=== PATIENT | male | born 1985 | race Caucasian/White ===

== ENCOUNTER 2020-08-12 13:06 | Emergency (ER) | payer MEDICARE, MEDICAID, SELFPAY ==
[2020-08-12 13:42] VITALS: BP 130/90; PULSE 82; RESP 16; TEMP 37; O2SAT 98; BMI 25.8
--- NOTE | 2020-08-12 14:25 | ED.BACK ---
HPI - Back Pain/Injury General Chief Complaint: Back Pain/Injury Stated Complaint: back pain Time Seen by Provider: 08/12/20 14:25 History of Present Illness HPI Narrative: Patient complains of low back pain mostly in the middle, but with some pain on both right and left sides with no radiation of pain no numbness no weakening, no paresthesias no tingling no urinary symptoms no changes to bowel or bladder, pain is worse with movement and he recalls no injury, pain is moderate Related Data Previous Rx's Medication Instructions Recorded diazepam [Valium] 5 mg PO TID PRN #14 tab 08/12/20 ibuprofen 600 mg PO Q6H PRN #20 tab 08/12/20 oxycodone 5 mg PO Q6H PRN #20 cap 08/12/20 Allergies Allergy/AdvReac Type Severity Reaction Status Date / Time efavirenz [From ATRIPLA] Allergy Unknown HIVES Unverified 05/12/20 15:21 emtricitabine [From ATRIPLA] Allergy Unknown HIVES Unverified 05/12/20 15:21 Penicillins Allergy Unknown HIVES Unverified 05/12/20 15:21 tenofovir [From ATRIPLA] Allergy Unknown HIVES Unverified 05/12/20 15:21 gadobutrol [From GADAVIST] AdvReac Mild STOMACH Unverified 05/12/20 15:21 UPSET penicillin Allergy Unknown SOB, RASH Uncoded 07/28/18 00:00 Review of Systems Review of Systems: No dizziness no weakness no fever no chills no numbness no weakness no paresthesias no radiation of pain no chest pain no abdominal pain no urinary symptoms no changes to bowel or bladder no incontinence no rash no extremity pain [facility] Past Medical History Attestation statement: The following information was validated with the patient. [facility] Narrative: Patient has had episodes of back pain before that were milder, no drugs or alcohol Source: nursing notes reviewed Medical History (Updated 08/12/20 @ 14:31 by CLAUDETTE Woo) No known health problems Social History Social History Alcohol intake: never Smoking Status: Never smoker Use of substances other than those prescribed or required for medical reasons: No Advance Directives: No Advance Directives Information Provided: Yes Physical Exam Vital Signs: Vital Signs: Last Vital Signs Temp 98.6 F 08/12/20 13:42 Pulse 82 08/12/20 13:42 Resp 16 08/12/20 13:42 BP 130/90 H 08/12/20 13:42 Pulse Ox 98 08/12/20 13:42 Body Mass Index 25.8 General appearance no distress, cooperative, a and O x3 Normocephalic atraumatic Neck is supple and nontender Respiratory no distress Abdomen is soft nontender The back had midline lower lumbar tenderness with mild bilateral paraspinal tenderness no focal bony tenderness, no CVA tenderness, skin is normal without redness warmth rash or wound, pain is worse with movements Extremities is full range of motion x4 Neuro gait is normal speech is normal interaction is normal, and motor is 5/5 x4 and sensation is intact and symmetrical Course Course Course Narrative: Patient with musculoskeletal back pain is treated with analgesics and discharged Discharge Plan Discharge Clinical Impression: Back pain Qualifiers: Back pain location: low back pain Chronicity: acute Back pain laterality: unspecified Sciatica presence: without sciatica Qualified Code(s): M54.5 - Low back pain Patient Disposition: Home, Self-Care Additional Instructions: Follow with primary doctor for back pain that is musculoskeletal, possibly herniated disc if needed Chiropractor and physical therapy are often helpful This pain usually will go away by itself over anywhere from days to weeks Return any time any worse condition or any concerns Prescriptions: New oxycodone 5 mg capsule 5 mg PO Q6H PRN (Reason: pain) Qty: 20 RF: 0 diazepam [Valium] 5 mg tablet 5 mg PO TID PRN (Reason: muscle spasm) Qty: 14 RF: 0 ibuprofen 600 mg tablet 600 mg PO Q6H PRN (Reason: pain) Qty: 20 RF: 0
[2020-08-12] MEDS: Acetaminophen 325 MG TABLET 650 MG PO (14:34)
[2020-08-12] MEDS: Ketorolac Tromethamine 30 MG/ML VIAL IM (14:35)
== END 2020-08-12 14:39 | disposition home or self-care (01) ==
PROVIDERS: Emergency Provider Emergency Medicine Emergency Medical Services
DX: M54.5 Low back pain (principal)
CPT/HCPCS: 96372; 99283; 99284; J1885

== ENCOUNTER 2021-04-02 11:53 | Emergency (ER) | payer MEDICARE, MEDICAID, SELFPAY ==
[2021-04-02 12:14] VITALS: BP 141/97; PULSE 117; RESP 18; TEMP 36.5; O2SAT 97; BMI 25.1
--- NOTE | 2021-04-02 13:54 | ED.SKABFB ---
HPI - Skin/Abscess/Foreign Bdy General Chief complaint: Skin/Abscess/Foreign Body Stated complaint: hives? Time Seen by Provider: 04/02/21 13:13 Source: patient Mode of arrival: ambulatory Limitations: no limitations History of Present Illness HPI narrative: 35-year-old male who denies any past medical or surgical history he denies currently taking any medication, no recent antibiotic use he presents today with complaint of states several months ago he started with itchy rash in the groin area where the skin slightly became macerated this rash has waxed and waned and now sometimes he will get intermittent rash diffusely on his extremities. States he has seen his primary care doctor and was prescribed mupirocin and oral antihistamine however rash keeps recurring. He denies any fever, chills, rash in the mouth, recent antibiotic use, travel, or sick contacts. MD complaint: rash Onset (ago): month(s) Tetanus up to date: yes Location: generalized Severity: mild Pain Consistency: intermittent Relieving factors: none Exacerbating factors: none Context: none Associated symptoms: denies other symptoms Treatments prior to arrival: none Related Data Previous Rx's Medication Instructions Recorded diazepam 5 mg tablet (Valium) 5 mg PO TID PRN #14 tab 08/12/20 ibuprofen 600 mg tablet 600 mg PO Q6H PRN #20 tab 08/12/20 oxycodone 5 mg capsule 5 mg PO Q6H PRN #20 cap 08/12/20 fluconazole 150 mg tablet 150 mg PO QWEEK 28 Days #4 tab 04/02/21 nystatin 100,000 unit/gram topical 1 appl TOPICAL DAILY 7 Days #15 g 04/02/21 powder prednisone 20 mg tablet 40 mg PO DAILY 7 Days #14 tab 04/02/21 Allergies Allergy/AdvReac Type Severity Reaction Status Date / Time efavirenz [From ATRIPLA] Allergy Unknown HIVES Unverified 05/12/20 15:21 emtricitabine [From ATRIPLA] Allergy Unknown HIVES Unverified 05/12/20 15:21 Penicillins Allergy Unknown HIVES Unverified 05/12/20 15:21 tenofovir [From ATRIPLA] Allergy Unknown HIVES Unverified 05/12/20 15:21 gadobutrol [From GADAVIST] AdvReac Mild STOMACH Unverified 05/12/20 15:21 UPSET penicillin Allergy Unknown SOB, RASH Uncoded 07/28/18 00:00 Review of Systems Review of Systems: Constitutional: No Weight loss, No Fever, No Chills, No Night Sweats, No Fatigue, No Malaise ENT/Mouth: No Hearing loss, No Ear Pain, No Nasal Congestion, No Sinus Pain, No Hoarseness, No sore throat, No Rhinorrhea, No Swallowing Difficulty Eyes: No Eye Pain, No Swelling, No Redness, No Foreign Body, No Discharge, No Vision Changes Cardiovascular: No Chest Pain, No SOB, No Dyspnea on Exertion, No Orthopnea, No Edema, No Palpitations Respiratory: No Cough, No Sputum, No Wheezing, No Smoke Exposure, No Dyspnea Gastrointestinal: No Nausea, No Vomiting, No Diarrhea, No Constipation, No abdominal Pain, No Hematochezia, No Melena Genitourinary: no irregular bleeding, No Dysuria, No Urinary Frequency, No Hematuria, No Urinary Incontinence, No Urgency, No Flank Pain, No Urinary Flow Changes, No Hesitancy Musculoskeletal: No joint pain, No Myalgias, No Joint Swelling Skin: No Skin Lesions, + rash Neuro: No Weakness, No Numbness, No Paresthesias, No Loss of Consciousness, No Dizziness, No Headache Psych: No Social Issues Heme/Lymph: No Bruising, No Bleeding,No Lymphadenopathy Endocrine: No Polyuria, No Polydipsia, No Temperature Intolerance [facility] Past Medical History Medical History (Updated 04/02/21 @ 13:27 by Juan Daniel Sanchez NP) No known health problems Social History Social History Alcohol intake: never Advance Directives: No Advance Directives Information Provided: Yes Physical Exam Vital Signs: Vital Signs: Last Vital Signs Temp 97.7 F 04/02/21 12:14 Pulse 117 H 04/02/21 12:14 Resp 18 04/02/21 12:14 BP 141/97 H 04/02/21 12:14 Pulse Ox 97 04/02/21 12:14 Body Mass Index 25.1 Const: General: cooperative and healthy appearing; No acute distress or intoxicated appearing Nutritional Appearance: average body habitus Orientation/consciousness: patient oriented x3 HENMT: Head: Yes normal to inspection Ears: hearing grossly normal bilaterally Eyes: General: appearance normal, both eyes and all related structures Visual Gregory: normal visual gregory by confrontation Neck: Neck: Yes normal visual inspection, No positive Brudzinski's sign, No positive Kernig's sign and No tender Thyroid: Thyroid normal Chest: Chest palpation & inspection: normal inspection of the chest Resp: Effort & Inspection: normal respiratory effort Auscultation: clear to auscultation bilaterally Cardio: Jugular venous distension: no JVD Rate: regular rate Rhythm: regular rhythm Heart sounds: S1 normal heart sound present and S2 normal heart sound present GI: Inspection: Yes normal to inspection Percussion: Yes normal to percussion Auscultation: normal bowel sounds : General: Yes no CVA tenderness Back/Spine/Pelvis: Back: no CVA tenderness Skin: Other: Bilateral groin areas slightly reddened and scaly rash with well-defined border extending from the superior to the mid groin area sparing the testicle/penile shaft. Bilateral arms and thighs with macular type rash lesions measuring small than 2 mm. There is no petechiae, fluid-filled sacs or discharge. General skin exam: elasticity normal Neuro: General: patient oriented x3 Extrem: General: Yes normal to inspection Course Course Course Narrative: Tinea with superimposed dermatitis will treat with fluconazole 1 tab Q week for 4 weeks, prednisone and nystatin for the groin area. Home care, return follow-up instructions provided. Feels comfortable plan. Stable for discharge. Discharge Plan Discharge Clinical Impression: Acute dermatitis Patient Disposition: Home, Self-Care Instructions: Acute Rash (ED) Additional Instructions: Take medications prescribed Avoid any new foods, soaps, detergents Return if any concerns or worsening symptoms as reviewed 2 Follow-up in 1 week with her primary doctor for recheck Thank you Prescriptions: New prednisone 20 mg tablet 40 mg PO DAILY 7 Days Qty: 14 RF: 0 fluconazole 150 mg tablet 150 mg PO QWEEK 28 Days Qty: 4 RF: 0 nystatin 100,000 unit/gram powder 1 appl topical DAILY 7 Days Qty: 15 RF: 0 No Action oxycodone 5 mg capsule 5 mg PO Q6H PRN (Reason: pain) Qty: 20 RF: 0 diazepam [Valium] 5 mg tablet 5 mg PO TID PRN (Reason: muscle spasm) Qty: 14 RF: 0 ibuprofen 600 mg tablet 600 mg PO Q6H PRN (Reason: pain) Qty: 20 RF: 0 Referrals: Jet Latif MD [Primary Care Provider] - 1 week Interventions: ED Discharge Assessment Last Done: 04/02/21 13:37 Discharge Date/Time: 04/02/21 13:38
== END 2021-04-02 13:38 | disposition home or self-care (01) ==
PROVIDERS: Emergency Provider Emergency Medicine Emergency Medical Services; PCP Internal Medicine
DX: L30.9 Dermatitis, unspecified (principal); R21 Rash and other nonspecific skin eruption
CPT/HCPCS: 99283

== ENCOUNTER 2022-03-25 22:21 | Emergency (ER) | payer MEDICARE, MEDICAID, SELFPAY ==
[2022-03-25 22:25] VITALS: BP 131/87; PULSE 84; RESP 18; TEMP 37.2; O2SAT 98; BMI 25.8
[2022-03-25 22:47] LABS: COVID-19 Test Positive (Negative)
[2022-03-25 22:48] LABS: Strep A Nucleic Acid Negative (Negative)
--- NOTE | 2022-03-25 23:46 | ED.GENADULT ---
HPI - General Adult General Chief complaint: General Medical Stated complaint: Sore throat Time Seen by Provider: 03/25/22 23:42 Source: patient Mode of arrival: ambulatory Limitations: no limitations History of Present Illness HPI narrative: Patient patient against COVID went on vacation to [place] came back 2 days ago complaining of sore throat body aches check for the COVID which was negative still not feeling good having body aches and sore throat also complaining of small folliculitis on the upper lip no fever no chills no shortness of breath Related Data Previous Rx's Medication Instructions Recorded diazepam 5 mg tablet (Valium) 5 mg PO TID PRN muscle spasm #14 08/12/20 tabs ibuprofen 600 mg tablet 600 mg PO Q6H PRN pain #20 tabs 08/12/20 oxycodone 5 mg capsule 5 mg PO Q6H PRN pain #20 caps 08/12/20 fluconazole 150 mg tablet 150 mg PO QWEEK 4 weeks #4 tabs 04/02/21 nystatin 100,000 unit/gram topical 1 appl topical DAILY to bilateral 04/02/21 powder groin 7 days #15 grams prednisone 20 mg tablet 40 mg PO DAILY 7 days #14 tabs 04/02/21 benzonatate 200 mg capsule 200 mg PO TID PRN cough #30 caps 03/25/22 doxycycline hyclate 100 mg tablet 100 mg PO BID #20 tabs 03/25/22 Allergies Allergy/AdvReac Type Severity Reaction Status Date / Time efavirenz [From ATRIPLA] Allergy Unknown HIVES Verified 03/25/22 22:25 emtricitabine [From ATRIPLA] Allergy Unknown HIVES Verified 03/25/22 22:25 Penicillins Allergy Unknown HIVES Verified 03/25/22 22:25 tenofovir [From ATRIPLA] Allergy Unknown HIVES Verified 03/25/22 22:25 gadobutrol [From GADAVIST] AdvReac Mild STOMACH Verified 03/25/22 22:25 UPSET penicillin Allergy Unknown SOB, RASH Uncoded 07/28/18 00:00 Review of Systems Review of Systems: Yes all other systems are reviewed and are negative PMFSH Past Medical History Medical History No known health problems Social History Social History Alcohol intake: never Advance Directives: No Advance Directives Information Provided: Yes Physical Exam ED Vital Signs: Vital Signs - 24 hr 03/25/22 22:25 Temperature 98.9 F Pulse Rate 84 Respiratory Rate 18 Blood Pressure 131/87 Pulse Oximetry 98 Oxygen Delivery Method Room Air BMI result Body Mass Index 25.8 Appearance: Alert. Oriented X3. No acute distress. ENT: Pharynx slight erythema Oral Mucosa moist Neck: Normal inspection. Neck supple. No lymph node CVS: Normal heart rate and rhythm. Pulses normal. Respiratory: No respiratory distress. Equal air entry bilateral, no wheezing/rales/rhonchi Abdomen: Soft and nontender. Bowel sounds are present, no mass palpable, no CVA tenderness Skin: Skin warm and dry. Normal skin color. Normal skin turgor. Extremities: No lower extremity edema. No calf tenderness Neuro: Oriented X 3. No motor deficit. Medical Decision Making MDM Narrative Medical decision making narrative: Patient with COVID symptoms discharge patient home on supportive treatment Lab Data Lab results reviewed: Yes I reviewed the patient's lab results. Labs: Lab Results 03/25/22 03/25/22 Range/Units 22:31 22:31 COVID-19 (CAMILA) Positive A (Negative) COVID-19 Clin Com See Note S. pyogenes GrpA FER Negative (Negative) Discharge Plan Discharge Clinical Impression: Folliculitis, COVID-19 Patient Disposition: Home, Self-Care Instructions: Folliculitis (ED), COVID-19 (Coronavirus Disease 2019) (ED) Additional Instructions: Social distancing as advised Report to ER if increased shortness of breath Doxycycline for folliculitis Cough drops as prescribed Prescriptions: New benzonatate 200 mg capsule 200 mg PO TID PRN (Reason: cough) Qty: 30 0RF doxycycline hyclate 100 mg tablet 100 mg PO BID Qty: 20 0RF No Action prednisone 20 mg tablet 40 mg PO DAILY 7 Days Qty: 14 0RF fluconazole 150 mg tablet 150 mg PO QWEEK 28 Days Qty: 4 0RF nystatin 100,000 unit/gram powder 1 appl topical DAILY 7 Days Qty: 15 0RF oxycodone 5 mg capsule 5 mg PO Q6H PRN (Reason: pain) Qty: 20 0RF Rx Instructions: Narcotic may cause drowsiness, no driving for 6 hours after taking diazepam [Valium] 5 mg tablet 5 mg PO TID PRN (Reason: muscle spasm) Qty: 14 0RF Rx Instructions: This medication may cause drowsiness, no driving for 8 hours after taking ibuprofen 600 mg tablet 600 mg PO Q6H PRN (Reason: pain) Qty: 20 0RF Interventions: ED Discharge Assessment Last Done: 03/25/22 23:54 Discharge Date/Time: 03/25/22 23:56
--- NOTE | 2022-03-25 23:54 | PC.NURSE ---
pt given nystatin from UC for oral thrush. pt continues to have lesions on tongue, and inside of cheeks. pt in no dc upon discharge
== END 2022-03-25 23:56 | disposition home or self-care (01) ==
LOC: HO.ED 23:52
PROVIDERS: Emergency Provider Internal Medicine; PCP Internal Medicine
DX: U07.1 COVID-19 (principal); J02.9 Acute pharyngitis, unspecified; L73.9 Follicular disorder, unspecified; M79.10 Myalgia, unspecified site; Z79.899 Other long term (current) drug therapy
CPT/HCPCS: 36415; 87635; 87651; 99284

== ENCOUNTER 2023-01-16 22:22 | Emergency (ER) | payer MEDICARE, MEDICAID, SELFPAY ==
--- NOTE | ~2023-01-16 | CT_ITS ---
EXAMINATION: CT ABDOMEN AND PELVIS WITH CONTRAST CLINICAL INFORMATION: Bilateral lower abdominal pain. COMPARISON: 02/17/2019 TECHNIQUE: Multidetector volumetric images were obtained from the superior aspect of the liver through the pubic symphysis following administration 85 mL of Omnipaque 350 intravenous contrast. Sagittal and coronal reformatted images were obtained on the technologist's workstation. Oral contrast: No This CT examination was performed using dose optimization techniques as appropriate, variously including the following: *Automated exposure control *Adjustment of mA and/or kV according to patient size (this includes techniques or standardized protocols for targeted exams where dose is matched to indication/reason for exam; i.e. extremities or head) *Use of iterative reconstruction technique DLP: 548 mGy-cm FINDINGS: LUNG BASES: The visualized lung bases are unremarkable. LIVER, GALLBLADDER, AND BILIARY TREE: Liver normal in size, contour and morphology. Diffuse hepatic steatosis suspected. No focal liver lesions. The gallbladder is unremarkable with no evidence of radiopaque gallstones, gallbladder wall thickening, or obvious pericholecystic inflammatory changes. PANCREAS: Unremarkable. SPLEEN: Unremarkable. ADRENAL GLANDS: Unremarkable. KIDNEYS AND URETERS: The kidneys are normal in size, shape, and attenuation. No hydronephrosis, hydroureter, or calculi seen. No perinephric stranding. BLADDER: Unremarkable. GASTROINTESTINAL TRACT: The small and large bowel are unremarkable. The appendix is unremarkable. ABDOMINAL WALL: No significant hernia is appreciated. LYMPH NODES: Normal. VASCULAR: Unremarkable. PELVIC VISCERA: Unremarkable. OSSEOUS STRUCTURES: Unremarkable. CT/CT abdomen pelvis w IV con IMPRESSION: * No acute findings within the abdomen or pelvis to explain the patient's symptomatology. * Hepatic steatosis suspected.
[2023-01-16 22:24] VITALS: BP 152/91; PULSE 78; RESP 18; TEMP 36.6; O2SAT 98; BMI 24.4
[2023-01-16 22:43] LABS: MANUAL DIFF FLAG NO
[2023-01-16 22:44] LABS: Basophils Absolute Auto 0.1 X10*3/uL (0.0-0.2); Basophils Percent Auto 0.7 % (0-2); Eosinophils Absolute Auto 0.5 X10*3/uL (0.0-0.4); Eosinophils Percent Auto 4.7 % (0-4); Hematocrit 45.7 % (42.0-52.0); Hemoglobin 15.1 g/dl (14.0-18.0); Imm Gran Abs Auto 0.05 X10*3/uL (0.00-0.03); Imm Gran Pct Auto 0.5 % (0.0-0.4); Lymphocytes Absolute Auto 2.6 X10*3/uL (1.2-4.9); Lymphocytes Percent Auto 26.6 % (20-40); Mean Corpuscular Hemoglobin 28.3 pg (27.0-33.0); Mean Corpuscular Volume 85.6 fL (80.0-98.0); Mean Platelet Volume 9.7 fL (9.4-12.4); Monocytes Absolute Auto 0.6 X10*3/uL (0.1-1.2); Monocytes Percent Auto 6.6 % (2-11); Neutrophils Absolute Auto 5.9 x10*3/uL (2.0-8.3); Neutrophils Percent Auto 60.9 % (45-73); Platelet Count 241 X10*3/uL (160-400); Red Blood Count 5.34 X10*6/uL (4.60-5.80); Red Cell Distribution Width 13.1 % (11.0-16.0); White Blood Count 9.8 X10*3/uL (4.8-10.8)
[2023-01-16 23:06] LABS: Alanine Aminotransferase 34 U/L (0-40); Albumin Level 4.2 g/dL (3.5-5.0); Alkaline Phosphatase 87 U/L (39-117); Anion Gap 14 (12-20); Aspartate Amino Transferase 27 U/L (5-37); Bilirubin Direct 0.1 mg/dL (0.0-0.5); Bilirubin Total 0.4 mg/dL (0.0-1.0); Blood Urea Nitrogen 15 mg/dL (9-16); Calcium 9.1 mg/dL (8.4-10.2); Carbon Dioxide 25 mmol/L (22-29); Chloride 106 mmol/L (96-108); Creatinine Clr Calc Pharmacy 97.1; Estimated Glomerular Filt Rate > 60; Glucose Random 81 mg/dL (60-115); Lipase 14 U/L (8-78); Potassium 4.3 mmol/L (3.3-5.1); Sodium 141 mmol/L (135-145); Total Protein 7.4 g/dL (6.5-8.0)
--- OUTSIDE RECORDS SUMMARY | 2023-01-16 23:41 | XMS_ITS | Continuity of Care Document ---
Author Name Unknown Organization [facility] Address [address] [place] [id number]- Care Team Providers Care Brimmer Blocker Name Role Phone Salomon OLMEDO, [facility] Primary Care Physician Encounter [facility] Date(s): 08/07/21 - 09/06/21 [facility] [address] [place] [id number]- Allergies, Adverse Reactions, Alerts Substance Reaction Severity Status Atripla hives Active Immunizations Given and Recorded Vaccine Date Status Refusal Reason SARS-CoV-2 (COVID-19) mRNA-1273 vaccine 12/05/20 R ecorded SARS-CoV-2 (COVID-19) mRNA-1273 vaccine 11/07/20 R ecorded Meningococcal Conjugate Vaccine 1 07/01/18 Given Meningococcal Conjugate Vaccine 2 01/01/17 Given influenza virus vaccine, inactivated 3 05/30/18 Gi lamar influenza virus vaccine, inactivated 4 07/10/16 Gi lamar influenza virus vaccine, inactivated 5 09/13/15 Gi lamar influenza virus vaccine, inactivated 07/15/12 Give n influenza virus vaccine, inactivated 6 06/06/10 Gi lamar Afluria (oldterm) 7 08/06/17 Given Boostrix (Tdap) (oldterm) 01/01/17 Given Prevnar (oldterm) 07/28/13 Given Fluarix (oldterm) 07/01/13 Given Hepatitis A Adult Vaccine 8 10/21/12 Given Hepatitis A Adult Vaccine 03/18/12 Given Hepatitis A Adult Vaccine 9 03/07/07 Given pneumococcal 23-valent vaccine 07/15/12 Given influ virus vac, H1N1, inactive(oldterm) 10 07/18/09 Given Influenza Inactive (IM) (oldterm) 11 06/14/08 Give n Influenza Inactive (IM) (oldterm) 07/14/07 Given Pneumovax 23 (oldterm) 12, 13 09/02/07 Given Pneumovax 23 (oldterm) 14 03/07/07 Given Hepatitis B Vaccine (old term) 15 07/31/07 Given Hepatitis B Vaccine (old term) 16 03/07/07 Given Tet/Diphth/Acel, Pertussis (oldterm) 17 02/05/07 G iven 1Admin Note: MENVEO #2 dose VIS GIVEN 2Admin Note: MENVEO 3Admin Note: recv'd at PCP office in [place] 4Admin Note: afluria 5Admin Note: Flucelvax 6Admin Note: VIS Given 7Result Comment: [08/06/2017] verbal consent obtained, allergies reviewed. Has had flu shot in past with no issues. [facility] flu vaccine sheet given. 8Admin Note: #2 9Admin Note: [facility] Records 10Admin Note: VIS given 11Admin Note: VIS given 12Result Comment: wrong patient 13Admin Note: Dr. Suarez Records 14Admin Note: [facility] Records 15Admin Note: [facility] Records #2 16Admin Note: [facility] Records #1 17Admin Note: [facility] Records Medications buPROPion 150 mg/24 hours (XL) oral tablet, extended release 1 tablet, By Mouth, Daily in AM, # 30 tablet, 1 Refills, 06/28/21 8:50:00 EDT, [facility]/pharmacy #1, 30, 1 tablet By Mouth Daily in AM, 180, cm, 03/15/21 13:32:00 EDT, Height Start Date: 06/28/21 Status: Ordered buPROPion 150 mg/24 hours (XL) oral tablet, extended release See Instructions, TAKE ONE TABLET BY MOUTH EVERY MORNING WITH 300 MG TABLET FOR A TOTAL OF 450 MG PER DAY IN THE MORNING, # 30 tablet, 5 Refills, [facility], 30, TAKE ONE TABLET BY MOUTH EVERY MORNING WITH 300 MG TABLET FOR A TOTAL OF... Start Date: 08/22/21 Status: Ordered buPROPion 300 mg/24 hours (XL) oral tablet, extended release 1 tablet, By Mouth, Daily, # 30 tablet, 1 Refills, 06/28/21 8:50:00 [id number], cm, 03/15/21 13:32:00 EDT, Height Start Date: 06/28/21 Status: Ordered buPROPion 300 mg/24 hours (XL) oral tablet, extended release See Instructions, TAKE ONE TABLET BY MOUTH ONCE DAILY, # 30 tablet, 5 Refills, [facility], 180, cm, 07/11/21 14:47:00 EST, Height Start Date: 08/22/21 Status: Ordered busPIRone 5 mg oral tablet 5 mg, 1, tablet, By Mouth, 2 times a day, # 60 tablet, Refills 2, Tot. Refills 2, Maintenance, 08/22/21 12:35:00 EST, [id number], cm, 07/11/21 14:47:00 EST, Height Start Date: 08/22/21 Status: Ordered clindamycin 1% topical gel 1 application, Topically, 2 times a day, # 60 Gm, 0 Refills, Maintenance, 03/21/21 14:11:00 EDT, Gel, [facility]/pharmacy #[id number], Partial fill upon patient request if the prescription is for a schedule II opioid drug., 1 application Topically 2 times a day, 1... Start Date: 03/21/21 Status: Ordered clotrimazole 1% topical cream 1 application, Topically, 2 times a day, # 113 Gm, 1 Refills, Maintenance, 03/15/21 13:54:00 EDT, Cream, [facility]/pharmacy #[id number], Partial fill upon patient request if the prescription is for a schedule IIopioid drug., 1 application Topically 2 times a day... Start Date: 03/15/21 Status: Ordered docusate sodium 100 mg oral capsule 1 capsule = 100 mg, By Mouth, 2 times a day, Hold for loose stools Drink Plenty of Water, # 60 capsule, 3 Refills, Maintenance, 03/03/14 18:39:45, Capsule, 1 capsule By Mouth 2 times a day,x30 days,Instr:Hold for loose stools ; Drink Plenty of Water Start Date: 03/03/14 Stop Date: 07/01/14 Status: Ordered Genvoya oral tablet 1 tablet, By Mouth, Daily, with food, # 30 tablet, 5 Refills, Maintenance, 03/27/21 10:44:00 EDT, Tablet, [facility], 1 tablet By Mouth Daily,x30 days,Instr:with food, 180, cm, 03/15/21 13:32:00 EDT, Height Start Date: 03/27/21 Stop Date: 09/23/21 Status: Ordered Nasacort Allergy 24HR 55 mcg/inh nasal spray See Instructions, 2 sprays Daily, # 1 each, 1 Refills, Maintenance, 09/25/16 12:12:25 Start Date: 09/25/16 Status: Ordered nystatin topical 761571 u/gm powder 1 application, Topically, 3 times a day, # 60 Gm, 1 Refills, Maintenance, 06/06/21 14:33:00 EDT, Powder, [facility]/pharmacy #[id number], Partial fill upon patient request if the prescription is for a schedule IIopioid drug., 1 application Topically 3 times a day... Start Date: 06/06/21 Status: Ordered prazosin 1 mg oral capsule 3, capsule, By Mouth, Daily at bedtime, # 90 capsule, Refills 11, Tot. Refills 11, 08/09/21 11:17:00 EST, Route to Pharmacy Electronically, [facility]/pharmacy #[id number], 180, cm, 07/11/21 14:47:00 EST, Height Start Date: 08/09/21 Status: Ordered Vistaril pamoate 25 mg oral capsule 1 capsule = 25 mg, By Mouth, Daily at bedtime, PRN as needed for anxiety, # 30 capsule, 2 Refills, Maintenance, 08/22/21 12:36:00 EST, [facility]/pharmacy #[id number], 180, cm, 07/11/21 14:47:00 EST, Height Start Date: 08/22/21 Status: Ordered zolpidem 10 mg oral tablet 1 tablet, By Mouth, Daily at bedtime, PRN NEEDED FOR SLEEP, # 30 tablet, 1 Refills, Maintenance,06/28/21 8:55:00 EDT, [id number], 180, cm, 03/15/21 13:32:00 EDT, Height Start Date: 06/28/21 Status: Ordered zolpidem 10 mg oral tablet See Instructions, TAKE ONE TABLET BY MOUTH EVERY NIGHT AT BEDTIME NEEDED FOR SLEEP, # 30 tablet,2 Refills, Maintenance, 08/22/21 12:10:00 EST, [facility], 180, cm, 07/11/21 14:47:00 EST, Height Start Date: 08/22/21 Status: Ordered ZyrTEC 10 mg oral tablet 1 tablet = 10 mg, By Mouth, Daily, # 30 tablet, 0 Refills, Maintenance, 11/11/18 12:39:40 EDT, Tablet Start Date: 11/11/18 Status: Ordered Problem List Condition Effective Dates Status Health Status Inform ant 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 Social History Social History Type Response Smoking Status Former smoker; Tob[employer] user in household: No entered on: 09/29/13 Sex
--- OUTSIDE RECORDS SUMMARY | 2023-01-16 23:41 | XMS_ITS | Continuity of Care Document ---
Author Name Unknown Organization [facility] Address [address] [place] [address]- Care Team Providers Care Hydrogeologist Name Role Phone Salomon OLMEDO, Jet Primary Care Physician [facility]): 10/24/21 - 11/23/21 [facility] [address] [place] [id number]- Allergies, Adverse Reactions, Alerts Substance Reaction Severity Status Atripla hives Active Immunizations Given and Recorded Vaccine Date Status Refusal Reason SARS-CoV-2 (COVID-19) mRNA-1273 vaccine 10/04/21 R ecorded SARS-CoV-2 (COVID-19) mRNA-1273 vaccine 12/05/20 R ecorded [...] 3Admin Note: recv'd at PCP office in [place] 4Admin Note: afluria 5Admin Note: Flucelvax 6Admin Note: VIS Given 7Result Comment: [08/06/2017] verbal consent obtained, allergies reviewed. Has had flu shot in past with no issues. [facility] flu vaccine sheet given. 8Admin Note: #2 9Admin Note: [facility] Records 10Admin Note: VIS given 11Admin Note: VIS given 12Result Comment: wrong patient 13Admin Note: Dr. Suarez Records 14Admin Note: [facility] Records 15Admin Note: [facility] Records #2 16Admin Note: [facility] Records #1 17Admin Note: [facility] Records Medications buPROPion 150 mg/24 hours (XL) oral tablet, extended release See Instructions, TAKE 1 TABLET BY MOUTH EVERY MORNING, # 30 tablet, 1 Refills, 10/26/21 17:11:00 EST, [facility], 30, TAKE 1 TABLET BY MOUTH EVERY MORNING, 180, cm, 07/11/21 14:47:00 EST, Height Start Date: 10/26/21 Status: Ordered buPROPion 300 mg/24 hours (XL) oral tablet, extended release See Instructions, TAKE 1 TABLET BY MOUTH EVERY DAY, # 30 tablet, 1 Refills, 10/26/21 17:11:00 EST, [facility], 180, cm, 07/11/21 14:47:00 EST, Height Start Date: 10/26/21 Status: Ordered busPIRone 5 mg oral tablet 5 mg, 1, tablet, By Mouth, 3 times a day, for 30 days, # 90 tablet, Refills 1, Tot. Refills 1, Physician Stop 12/25/21 17:13:00 EDT, 10/26/21 17:13:00 EST, Route to Pharmacy Electronically, [facility], 180, cm, 07/11/21 14:47:00 EST,... Start Date: 10/26/21 Stop Date: 12/25/21 Status: Ordered clindamycin 1% topical gel 1 application, Topically, 2 times a day, # 60 Gm, 0 Refills, Maintenance, 03/21/21 14:11:00 EDT, Gel, [facility]/pharmacy #[id number], Partial fill upon patient request if the prescription is for a schedule II opioid drug., 1 application Topically 2 times a day, 1... Start Date: 03/21/21 Status: Ordered clotrimazole 1% topical cream 1 application, Topically, 2 times a day, # 113 Gm, 1 Refills, Maintenance, 03/15/21 13:54:00 EDT, Cream, [facility]/pharmacy #[id number], Partial fill upon patient request if [...] food, # 30 tablet, 5 Refills, Maintenance, 11/20/21 10:48:00 EDT, Tablet, [facility], 1 tablet By Mouth Daily,x30 days,Instr:with food, 180, cm, 07/11/21 14:47:00 EST, Height Start Date: 11/20/21 Stop Date: 05/19/22 Status: Ordered Nasacort Allergy 24HR 55 mcg/inh nasal spray See Instructions, 2 sprays Daily, # 1 each, 1 Refills, Maintenance, 09/25/16 12:12:25 Start Date: 09/25/16 Status: Ordered nystatin topical 794697 u/gm powder 1 application, Topically, 3 times a day, # 60 Gm, 1 Refills, Maintenance, 06/06/21 14:33:00 EDT, Powder, [facility]/pharmacy #[id number], Partial fill upon patient request if the prescription is for a schedule IIopioid drug., 1 application Topically 3 times a day... Start Date: 06/06/21 Status: Ordered prazosin 1 mg oral capsule 4 mg, 4, capsule, By Mouth, Daily at bedtime, for 30 days, please cancel any other prazosin rx on file, # 120 capsule, Refills 1, Tot. Refills 1, Physician Stop 12/25/21 17:12:00 EDT, 10/26/21 17:12:00 EST, Route to Pharmacy Electronically, [facility]... Start Date: 10/26/21 Stop Date: 12/25/21 Status: Ordered Vistaril pamoate 25 mg oral capsule See Instructions, PRN as needed for anxiety, take 1-2 caps po bid prn for anxiety or insomnia. Max 4 caps/day, # 120 capsule, 1 Refills, Maintenance, 10/26/21 17:11:00 EST, [facility], 180, cm, 07/11/21 14:47:00 EST, Height Start Date: 10/26/21 Status: Ordered zolpidem 10 mg oral tablet See Instructions, TAKE ONE TABLET BY MOUTH EVERY NIGHT AT BEDTIME NEEDED FOR SLEEP, # 30 tablet,1 Refills, Maintenance, 10/26/21 17:15:00 EST, [facility], 180, cm, 07/11/21 14:47:00 EST, Height Start Date: 10/26/21 Status: Ordered ZyrTEC 10 mg oral tablet [...]
--- OUTSIDE RECORDS SUMMARY | 2023-01-16 23:41 | XMS_ITS | Continuity of Care Document ---
Author Name Unknown Organization [facility] Address [address] [place] [address]- Care Team Providers Care Metaphysicist Name Role Phone Salomon OLMEDO, Jet Primary Care Physician [facility]): 03/23/21 - 04/22/21 [facility] [address] [place], [place] [address] Allergies, Adverse Reactions, Alerts Substance Reaction Severity [...] 3Admin Note: recv'd at PCP office in [place] 4Admin Note: afluria 5Admin Note: Flucelvax 6Admin Note: VIS Given 7Result Comment: [08/06/2017] verbal consent obtained, allergies reviewed. Has had flu shot in past with no issues. [facility] flu vaccine sheet given. 8Admin Note: #2 9Admin Note: [facility] Records 10Admin Note: VIS given 11Admin Note: VIS given 12Result Comment: wrong patient 13Admin Note: Dr. Suarez Records 14Admin Note: [facility] Records 15Admin Note: [facility] Records #2 16Admin Note: [facility] Records #1 17Admin Note: [facility] Records Medications buPROPion 150 mg/24 hours (XL) oral tablet, extended release 1 tablet, By Mouth, Daily in AM, TAKE WITH 300 MG TAB FOR TOTAL OF 450 MG/DAY IN AM, # 30 tablet, 1Refills, Maintenance, 03/03/21 11:22:00 EDT, [facility], 30, 1 tablet By Mouth Daily in AM,Instr:TAKE WITH 300 MG TAB FOR TOTAL OF 450... Start Date: 03/03/21 Status: Ordered busPIRone 5 mg oral tablet See Instructions, Take 1 tab qhs po x 5 days then take 1 tab bid, # 60 tablet, Refills 2, Tot. Refills 2, Maintenance, 02/02/21 11:48:00 EDT, Instructions Replace Required Details, Route to Pharmacy Electronically, [facility], Partial... Start Date: 02/02/21 Status: Ordered clindamycin 1% topical gel 1 application, Topically, 2 times a day, # 60 Gm, 0 Refills, Maintenance, 03/21/21 14:11:00 EDT, [id number] Partial fill upon patient request if the prescription is for a schedule II opioid drug., 1 application Topically 2 times a day, 1... Start Date: 03/21/21 Status: Ordered clotrimazole 1% topical cream 1 application, Topically, 2 times a day, # 113 Gm, 1 Refills, Maintenance, 03/15/21 13:54:00 EDT, Cream, [facility]/pharmacy #[id number], Partial fill upon patient request if [...] 5 Refills, Maintenance, 03/27/21 10:44:00 EDT, Tablet, [facility], 1 tablet By Mouth Daily,x30 days,Instr:with food, 180, cm, 03/15/21 13:32:00 EDT, Height Start Date: 03/27/21 Stop Date: 09/23/21 Status: Ordered Nasacort Allergy 24HR 55 mcg/inh nasal spray See Instructions, 2 sprays Daily, # 1 each, 1 Refills, Maintenance, 09/25/16 12:12:25 Start Date: 09/25/16 Status: Ordered nystatin topical 300485 u/gm powder 1 application, Topically, 3 times a day, # 60 Gm, 1 Refills, Maintenance, 04/03/21 18:31:00 EDT, Powder, [facility], Partial fill upon patient request if the prescription is for a schedule II opioid drug., 1 application Topically 3 ti... Start Date: 04/03/21 Status: Ordered oxyCODONE 5 mg oral tablet 5 mg, 1, tablet, By Mouth, Every 6 hours, PRN, # 28 tablet, Refills 0, Tot. Refills 0, Maintenance,for pain, 11/05/18 10:46:17 EDT, Print Requisition Start Date: 11/05/18 Status: Ordered prazosin 1 mg oral capsule See Instructions, TAKE THREE CAPSULES BY MOUTH AT BEDTIME, # 90 capsule, Refills 1, Maintenance, Instructions Replace Required Details, Route to Pharmacy Electronically, [facility], 180, cm, 01/10/21 14:13:00 EDT, Height Start Date: 03/03/21 Status: Ordered prazosin 1 mg oral capsule 3, capsule, By Mouth, Daily at bedtime, # 90 capsule, Refills 1, Tot. Refills 0, Maintenance, 01/04/21 15:13:00 EDT, Route to Pharmacy Electronically, [facility], 180, cm, 03/30/20 15:08:00 EDT, Height Start Date: 01/04/21 Status: Ordered Valium 5 mg oral tablet 5 mg, 1, tablet, By Mouth, 3 times a day, PRN, for anal spasms, # 40 tablet, Refills 0, Tot. Refills 0, Maintenance, Spasm, 10/27/18 12:55:38 EST, Print Requisition Start Date: 10/27/18 Status: Ordered Vistaril pamoate 25 mg oral capsule 1 capsule = 25 mg, By Mouth, Daily at bedtime, PRN Insomnia, # 30 capsule, 0 Refills, Maintenance, 06/24/20 17:18:00 EDT, [facility], 180, cm, 03/30/20 15:08:00 EDT, Height, 81.8, kg, 10/28/18 10:39:00 EST, Dry Weight Start Date: 06/24/20 Status: Ordered zolpidem 10 mg oral tablet 1 tablet, By Mouth, Daily at bedtime, PRN NEEDED FOR SLEEP, # 30 tablet, 1 Refills, Maintenance,03/03/21 11:22:00 EDT, [facility], 180, cm, 01/10/21 14:13:00 EDT, Height Start Date: 03/03/21 Status: Ordered ZyrTEC 10 mg oral tablet [...]
--- OUTSIDE RECORDS SUMMARY | 2023-01-16 23:41 | XMS_ITS | Continuity of Care Document ---
Author Name Unknown Organization [facility] Address [address] [place] [address]- Care Team Providers Care Information Technology Architect Name Role Phone Salomon OLMEDO, Richa Primary Care Physician [phone] [facility]counter [facility] Date[facility]s): 05/11/22 - 06/10/22 [facility] [address]- [place] Allergies, Adverse Reactions, Alerts Substance Reaction Severity [...] 3Admin Note: recv'd at PCP office in [place] 4Admin Note: afluria 5Admin Note: Flucelvax 6Admin Note: VIS Given 7Result Comment: [08/06/2017] verbal consent obtained, allergies reviewed. Has had flu shot in past with no issues. [facility] flu vaccine sheet given. 8Admin Note: #2 9Admin Note: [facility] Records 10Admin Note: VIS given 11Admin Note: VIS given 12Result Comment: wrong patient 13Admin Note: Dr. Suarez Records 14Admin Note: [facility] Records 15Admin Note: [facility] Records #2 16Admin Note: [facility] Records #1 17Admin Note: [facility] Records Medications buPROPion 150 mg/24 hours (XL) oral tablet, extended release See Instructions, TAKE 1 TABLET BY MOUTH EVERY MORNING, # 30 tablet, 2 Refills, 03/08/22 9:52:00 EDT, [facility], 30, TAKE 1 TABLET BY MOUTH EVERY MORNING, 180, cm, 01/23/22 14:19:00EDT, Height Start Date: 03/08/22 Status: Ordered buPROPion 300 mg/24 hours (XL) oral tablet, extended release See Instructions, TAKE 1 TABLET BY MOUTH EVERY DAY, # 30 tablet, 2 Refills, 03/08/22 9:52:00 EDT, [facility], 180, cm, 01/23/22 14:19:00 EDT, Height Start Date: 03/08/22 Status: Ordered busPIRone 5 mg oral tablet See Instructions, Take 1 tab qam po and 2 tabs qhs, # 180 tablet, Refills 2, Tot. Refills 2, 03/08/22 9:51:00 EDT, Instructions Replace Required Details, Route to Pharmacy Electronically, [facility], 180, cm, 01/23/22 14:19:00 EDT, He... Start Date: 03/08/22 Status: Ordered clindamycin 1% topical gel 1 application, Topically, 2 times a day, # 60 Gm, 0 Refills, Maintenance, 03/21/21 14:11:00 EDT, Gel, [facility]/pharmacy #[id number], Partial fill upon patient request if the prescription is for a schedule II opioid drug., 1 application Topically 2 times a day, 1... Start Date: 03/21/21 Status: Ordered clotrimazole 1% topical cream 1 application, Topically, 2 times a day, # 113 Gm, 1 Refills, Maintenance, 03/15/21 13:54:00 EDT, Cream, [facility]/pharmacy #[id number], Partial fill upon patient request [...] food, # 30 tablet, 5 Refills, Maintenance, 05/09/22 11:02:00 EDT, Tablet, [facility], 1 tablet By Mouth Daily,x30 days,Instr:with food, 180, cm, 01/23/22 14:19:00 EDT, Height Start Date: 05/09/22 Stop Date: 11/05/22 Status: Ordered Nasacort Allergy 24HR 55 mcg/inh nasal spray See Instructions, 2 sprays Daily, # 1 each, 1 Refills, Maintenance, 09/25/16 12:12:25 Start Date: 09/25/16 Status: Ordered nystatin topical 566422 u/gm powder 1 application, Topically, 3 times a day, # 60 Gm, 1 Refills, Maintenance, 06/06/21 14:33:00 EDT, Powder, [facility]/pharmacy #[id number], Partial fill upon patient request if the prescription is for a schedule IIopioid drug., 1 application Topically 3 times a day... Start Date: 06/06/21 Status: Ordered prazosin 1 mg oral capsule See Instructions, TAKE 4 CAPSULES BY MOUTH ONCE DAILY AT BEDTIME, # 120 capsule, Refills 2, Tot. Refills 2, Instructions Replace Required Details, [facility], cm, 01/23/22 14:19:00 EDT, Height Start Date: 03/08/22 Status: Ordered Vistaril pamoate 25 mg oral capsule See Instructions, PRN as needed for anxiety, take 1-2 caps po bid prn for anxiety or insomnia. Max 4 caps/day, # 120 capsule, 1 Refills, Maintenance, 12/08/21 6:01:00 EDT, [facility], 180, cm, 07/11/21 14:47:00 EST, Height Start Date: 12/08/21 Status: Ordered zolpidem 10 mg oral tablet See Instructions, TAKE ONE TABLET BY MOUTH EVERY NIGHT AT BEDTIME NEEDED FOR SLEEP, # 30 tablet,2 Refills, Maintenance, 03/08/22 9:53:00 EDT, [facility], 180, cm, 01/23/22 14:19:00 EDT, Height Start Date: 03/08/22 Status: Ordered zolpidem 10 mg oral tablet See Instructions, TAKE ONE TABLET BY MOUTH EVERY NIGHT AT BEDTIME NEEDED FOR SLEEP, # 30 tablet,1 Refills, Maintenance, 10/26/21 17:15:00 EST, [facility], 180, cm, 07/11/21 14:47:00 EST, Height Start Date: 10/26/21 Status: Ordered zolpidem 10 mg oral tablet See Instructions, TAKE ONE TABLET BY MOUTH EVERY NIGHT AT BEDTIME NEEDED FOR SLEEP, # 30 tablet,1 Refills, Maintenance, 12/08/21 6:04:00 EDT, [facility], 180, cm, 07/11/21 14:47:00 EST, Height Start Date: 12/08/21 Status: Ordered ZyrTEC 10 mg oral tablet 1 tablet = 10 mg, By Mouth, Daily, # 30 tablet, 11 Refills, Maintenance, 01/23/22 14:27:00 EDT, Tablet, [facility]/pharmacy #[id number], 180, cm, 01/23/22 14:19:00 EDT, Height Start Date: 01/23/22 Status: Ordered Problem List Condition Confirmation Course Effective Dates Status H ealth Status Informant 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 Social History Social History Type Response Smoking Status Former smoker; Tobac co user in household: No entered on: 09/29/13 Sex Patient Care team information Personnel Name: Jet Latif MD Address: Address: [address] [place] [address] [facility] [address]
--- OUTSIDE RECORDS SUMMARY | 2023-01-16 23:41 | XMS_ITS | Continuity of Care Document ---
Author Name Unknown Organization [facility] Address [address] [place] [address]- Care Team Providers Care Communications Associate Name Role Phone Salomon OLMEDO, Richa Primary Care Physician [facility] 07[facility] - 08/10/21 [facility] [address] [place] [id number] Attending Physician: Admtr, [id number] Allergies, Adverse Reactions, Alerts Substance Reaction Severity [...] 3Admin Note: recv'd at PCP office in [place] 4Admin Note: afluria 5Admin Note: Flucelvax 6Admin Note: VIS Given 7Result Comment: [08/06/2017] verbal consent obtained, allergies reviewed. Has had flu shot in past with no issues. [facility] flu vaccine sheet given. 8Admin Note: #2 9Admin Note: [facility] Records 10Admin Note: VIS given 11Admin Note: VIS given 12Result Comment: wrong patient 13Admin Note: Dr. Suarez Records 14Admin Note: [facility] Records 15Admin Note: [facility] Records #2 16Admin Note: [facility] Records #1 17Admin Note: [facility] Records Medications buPROPion 150 mg/24 hours (XL) oral tablet, extended release 1 tablet, By Mouth, Daily in AM, # 30 tablet, 1 Refills, 06/28/21 8:50:00 EDT, [facility]/pharmacy #[id number], 30, 1 tablet By Mouth Daily in AM, 180, cm, 03/15/21 13:32:00 EDT, Height Start Date: 06/28/21 Status: Ordered buPROPion 300 mg/24 hours (XL) oral tablet, extended release 1 tablet, By Mouth, Daily, # 30 tablet, 1 Refills, 06/28/21 8:50:00 EDT, [facility]/pharmacy #[id number], 180, cm, 03/15/21 13:32:00 EDT, Height Start Date: 06/28/21 Status: Ordered busPIRone 5 mg oral tablet See Instructions, TAKE ONE TABLET BY MOUTH AT BEDTIME FOR 5 DAYS THEN TAKE ONE TABLET TWO TIMES A DAY, # 60 tablet, Refills 1, Tot. Refills 1, Maintenance, 06/28/21 8:50:00 EDT, Instructions Replace Required Details, Route to Pharmacy Electronically,... Start Date: 06/28/21 Status: Ordered clindamycin 1% topical gel 1 application, Topically, 2 times a day, # 60 Gm, 0 Refills, Maintenance, 03/21/21 14:11:00 EDT, Gel, [facility]/pharmacy #[id number], Partial fill upon patient request if the prescription is for a schedule II opioid drug., 1 application Topically 2 times a day, 1... Start Date: 03/21/21 Status: Ordered clotrimazole 1% topical cream 1 application, Topically, 2 times a day, # 113 Gm, 1 Refills, Maintenance, 03/15/21 13:54:00 EDT, Cream, [facility]/pharmacy #[id number], Partial fill upon patient request if [...] 5 Refills, Maintenance, 03/27/21 10:44:00 EDT, Tablet, [facility], 1 tablet By Mouth Daily,x30 days,Instr:with food, 180, cm, 03/15/21 13:32:00 EDT, Height Start Date: 03/27/21 Stop Date: 09/23/21 Status: Ordered Nasacort Allergy 24HR 55 mcg/inh nasal spray See Instructions, 2 sprays Daily, # 1 each, 1 Refills, Maintenance, 09/25/16 12:12:25 Start Date: 09/25/16 Status: Ordered nystatin topical 479139 u/gm powder 1 application, Topically, 3 times a day, # 60 Gm, 1 Refills, Maintenance, 06/06/21 14:33:00 EDT, [id number] Partial fill upon patient request if the prescription is for a schedule IIopioid drug., 1 application Topically 3 times a day... Start Date: 06/06/21 Status: Ordered prazosin 1 mg oral capsule 3, capsule, By Mouth, Daily at bedtime, # 90 capsule, Refills 11, Tot. Refills 11, 08/09/21 11:17:00 EST, [id number] 180, cm, 07/11/21 14:47:00 EST, Height Start Date: 08/09/21 Status: Ordered Vistaril pamoate 25 mg oral capsule 1 capsule = 25 mg, By Mouth, Daily at bedtime, PRN Insomnia, # 30 capsule, 0 Refills, Maintenance, 06/24/20 17:18:00 EDT, [facility], 180, cm, 03/30/20 15:08:00 EDT, Height, 81.8, kg, 10/28/18 10:39:00 EST, Dry Weight Start Date: 06/24/20 Status: Ordered zolpidem 10 mg oral tablet 1 tablet, By Mouth, Daily at bedtime, PRN NEEDED FOR SLEEP, # 30 tablet, 1 Refills, Maintenance,06/28/21 8:55:00 EDT[id number] 180, cm, 03/15/21 13:32:00 EDT, Height Start Date: 06/28/21 Status: Ordered ZyrTEC 10 mg oral tablet [...] intraepithelial neoplasia, high-grade (AIN3 / severe dysplasia). Vital Signs Most recent to oldest [Reference Range]: 1 2 Height 175.26 cm (07/19/15 12:35 PM) 175.26 cm (07/14/07 10:34 AM) Weight 62.100 kg (07/14/07 10:34 AM) Body Mass Index [18.50-24.99] 20.22 (07/14/07 10:34 AM) Blood Pressure [90-138/55-84 mm Hg] 124/ 78mm Hg (07/14/07 10:34 AM) Temperature [96.8-100.4 DegF] 97.2 DegF (07/14/07 10:34 AM) Dry Weight 78.18 kg (07/19/15 12:35 PM) Dry Weight Obtained Via Patient/family s tated (07/19/15 12:35 PM) Social History Social History Type Response Smoking Status Former smoker; Tobac co user in household: No entered on: 09/29/13 Sex
--- OUTSIDE RECORDS SUMMARY | 2023-01-16 23:41 | XMS_ITS | Continuity of Care Document ---
Author Name Unknown Organization [facility] Address [address] [place] [id number]- Care Team Providers Care Grocery Store Associate Name Role Phone Salomon OLMEDO, Richa Primary Care Physician [facility]): 07/[facility]21 - 08/03/21 [facility] [address] [place] [id number]- Allergies, Adverse Reactions, Alerts Substance Reaction Severity [...] 3Admin Note: recv'd at PCP office in [place] 4Admin Note: afluria 5Admin Note: Flucelvax 6Admin Note: VIS Given 7Result Comment: [08/06/2017] verbal consent obtained, allergies reviewed. Has had flu shot in past with no issues. [facility] flu vaccine sheet given. 8Admin Note: #2 9Admin Note: [facility] Records 10Admin Note: VIS given 11Admin Note: VIS given 12Result Comment: wrong patient 13Admin Note: Dr. Suarez Records 14Admin Note: [facility] Records 15Admin Note: [facility] Records #2 16Admin Note: [facility] Records #1 17Admin Note: [facility] Records Medications buPROPion 150 mg/24 hours (XL) oral tablet, extended release 1 tablet, By Mouth, Daily in AM, # 30 tablet, 1 Refills, 06/28/21 8:50:00 EDT, [facility]/pharmacy #[id number], 30, 1 tablet By Mouth Daily in AM, 180, cm, 03/15/21 13:32:00 EDT, Height Start Date: 06/28/21 Status: Ordered buPROPion 300 mg/24 hours (XL) oral tablet, extended release 1 tablet, By Mouth, Daily, # 30 tablet, 1 Refills, 06/28/21 8:50:00 EDT, [facility]/pharmacy #[id number], 180, cm, 03/15/21 13:32:00 EDT, Height [...] 0 Refills, Maintenance, 03/21/21 14:11:00 EDT, Gel, [facility]/pharmacy #[id number], Partial fill upon patient request if the prescription is for a schedule II opioid drug., 1 application Topically 2 times a day, 1... Start Date: 03/21/21 Status: Ordered clotrimazole 1% topical cream 1 application, Topically, 2 times a day, # 113 Gm, 1 Refills, Maintenance, 03/15/21 13:54:00 EDT, Cream, [facility]/pharmacy #[id number], Partial fill upon [...] 5 Refills, Maintenance, 03/27/21 10:44:00 EDT, Tablet, [facility], 1 tablet By Mouth Daily,x30 days,Instr:with food, 180, cm, 03/15/21 13:32:00 EDT, Height Start Date: 03/27/21 Stop Date: 09/23/21 Status: Ordered Nasacort Allergy 24HR 55 mcg/inh nasal spray See Instructions, 2 sprays Daily, # 1 each, 1 Refills, Maintenance, 09/25/16 12:12:25 Start Date: 09/25/16 Status: Ordered nystatin topical 356286 u/gm powder 1 application, Topically, 3 times a day, # 60 Gm, 1 Refills, Maintenance, 06/06/21 14:33:00 EDT, Powder, [facility]/pharmacy #[id number], Partial fill upon patient request if the prescription is for a schedule IIopioid drug., 1 application Topically 3 times a day... Start Date: 06/06/21 Status: Ordered prazosin 1 mg oral capsule 3, capsule, By Mouth, Daily at bedtime, # 90 capsule, Refills 1, Route to Pharmacy Electronically, [facility], 180, cm, 03/15/21 13:32:00 EDT, Height Start Date: 05/02/21 Status: Ordered Vistaril pamoate 25 mg oral capsule 1 capsule = 25 mg, By Mouth, Daily at bedtime, PRN Insomnia, # 30 capsule, 0 Refills, Maintenance, 06/24/20 17:18:00 EDT, [facility], 180, cm, 03/30/20 15:08:00 EDT, Height, 81.8, kg, 10/28/18 10:39:00 EST, Dry Weight Start Date: 06/24/20 Status: Ordered zolpidem 10 mg oral tablet 1 tablet, By Mouth, Daily at bedtime, PRN NEEDED FOR SLEEP, # 30 tablet, 1 Refills, Maintenance,06/28/21 8:55:00 EDT, [facility]/pharmacy #[id number], 180, cm, 03/15/21 13:32:00 EDT, Height [...]
--- OUTSIDE RECORDS SUMMARY | 2023-01-16 23:41 | XMS_ITS | Continuity of Care Document ---
Author Name Unknown Organization [facility] Address [address] [place] [address]- Care Team Providers Care Director Work Name Role Phone Salomon OLMEDO, Jet Primary Care Physician [facility] Date(s): 03/23/21 - 04/22/21 [facility] [address] [place], [place] [address] Allergies, Adverse Reactions, Alerts Substance Reaction Severity [...] 3Admin Note: recv'd at PCP office in [place] 4Admin Note: afluria 5Admin Note: Flucelvax 6Admin Note: VIS Given 7Result Comment: [08/06/2017] verbal consent obtained, allergies reviewed. Has had flu shot in past with no issues. [facility] flu vaccine sheet given. 8Admin Note: #2 9Admin Note: [facility] Records 10Admin Note: VIS given 11Admin Note: VIS given 12Result Comment: wrong patient 13Admin Note: Dr. Suarez Records 14Admin Note: [facility] Records 15Admin Note: [facility] Records #2 16Admin Note: [facility] Records #1 17Admin Note: [facility] Records Medications buPROPion 150 mg/24 hours (XL) oral tablet, extended release 1 tablet, By Mouth, Daily in AM, TAKE WITH 300 MG TAB FOR TOTAL OF 450 MG/DAY IN AM, # 30 tablet, 1Refills, Maintenance, 03/03/21 11:22:00 EDT, [facility], 30, 1 tablet By Mouth Daily in AM,Instr:TAKE WITH 300 MG TAB FOR TOTAL OF 450... Start Date: 03/03/21 Status: Ordered busPIRone 5 mg oral tablet See Instructions, Take 1 tab qhs po x 5 days then take 1 tab bid, # 60 tablet, Refills 2, Tot. Refills 2, Maintenance, 02/02/21 11:48:00 EDT, Instructions Replace Required Details, Route to Pharmacy Electronically, [facility], Partial... Start Date: 02/02/21 Status: Ordered clindamycin 1% topical gel 1 application, Topically, 2 times a day, # 60 Gm, 0 Refills, Maintenance, 03/21/21 14:11:00 EDT, [id number] Partial fill upon patient request if the prescription is for a schedule II opioid drug., 1 application Topically 2 times a day, 1... Start Date: 03/21/21 Status: Ordered clotrimazole 1% topical cream 1 application, Topically, 2 times a day, # 113 Gm, 1 Refills, Maintenance, 03/15/21 13:54:00 EDT, Cream, [facility]/pharmacy #[id number], Partial fill upon [...] 5 Refills, Maintenance, 03/27/21 10:44:00 EDT, Tablet, [facility], 1 tablet By Mouth Daily,x30 days,Instr:with food, 180, cm, 03/15/21 13:32:00 EDT, Height Start Date: 03/27/21 Stop Date: 09/23/21 Status: Ordered Nasacort Allergy 24HR 55 mcg/inh nasal spray See Instructions, 2 sprays Daily, # 1 each, 1 Refills, Maintenance, 09/25/16 12:12:25 Start Date: 09/25/16 Status: Ordered nystatin topical 760977 u/gm powder 1 application, Topically, 3 times a day, # 60 Gm, 1 Refills, Maintenance, 04/03/21 18:31:00 EDT, Powder, [facility], Partial fill upon patient request [...] Replace Required Details, Route to Pharmacy Electronically, [facility], 180, cm, 01/10/21 14:13:00 EDT, Height Start Date: 03/03/21 Status: Ordered prazosin 1 mg oral capsule 3, capsule, By Mouth, Daily at bedtime, # 90 capsule, Refills 1, Tot. Refills 0, Maintenance, 01/04/21 15:13:00 EDT, Route to Pharmacy Electronically, [facility], 180, cm, 03/30/20 15:08:00 EDT, [...] capsule, 0 Refills, Maintenance, 06/24/20 17:18:00 EDT, [facility], 180, cm, 03/30/20 15:08:00 EDT, Height, 81.8, kg, 10/28/18 10:39:00 EST, Dry Weight Start Date: 06/24/20 Status: Ordered zolpidem 10 mg oral tablet 1 tablet, By Mouth, Daily at bedtime, PRN NEEDED FOR SLEEP, # 30 tablet, 1 Refills, Maintenance,03/03/21 11:22:00 EDT, [facility], 180, cm, 01/10/21 14:13:00 EDT, Height [...]
--- OUTSIDE RECORDS SUMMARY | 2023-01-16 23:41 | XMS_ITS | Continuity of Care Document ---
Author Name Unknown Organization [facility] Address [address] [place] [address]- Care Team Providers Care Material Assistant Name Role Phone Salomon OLMEDO, Jet Primary Care Physician [facility] Date(s): 03/31/21 - 04/30/21 [facility] [address] [place] [address]- Allergies, Adverse Reactions, Alerts Substance Reaction Severity [...] 3Admin Note: recv'd at PCP office in [place] 4Admin Note: afluria 5Admin Note: Flucelvax 6Admin Note: VIS Given 7Result Comment: [08/06/2017] verbal consent obtained, allergies reviewed. Has had flu shot in past with no issues. [facility] flu vaccine sheet given. 8Admin Note: #2 9Admin Note: [facility] Records 10Admin Note: VIS given 11Admin Note: VIS given 12Result Comment: wrong patient 13Admin Note: Dr. Suarez Records 14Admin Note: [facility] Records 15Admin Note: [facility] Records #2 16Admin Note: [facility] Records #1 17Admin Note: [facility] Records Medications buPROPion 150 mg/24 hours (XL) oral tablet, extended release 1 tablet, By Mouth, Daily in AM, TAKE WITH 300 MG TAB FOR TOTAL OF 450 MG/DAY IN AM, # 30 tablet, 1Refills, Maintenance, 03/03/21 11:22:00 EDT, [facility], 30, 1 tablet By [...] Replace Required Details, Route to Pharmacy Electronically, [facility], Partial... Start Date: 02/02/21 Status: Ordered clindamycin 1% topical gel 1 application, Topically, 2 times a day, # 60 Gm, 0 Refills, Maintenance, 03/21/21 14:11:00 EDT, Gel, [facility]/pharmacy #[id number], Partial fill upon patient request if the prescription is for a schedule II opioid drug., 1 application Topically 2 times a day, 1... Start Date: 03/21/21 Status: Ordered clotrimazole 1% topical cream 1 application, Topically, 2 times a day, # 113 Gm, 1 Refills, Maintenance, 03/15/21 13:54:00 EDT, Cream, [facility]/pharmacy #[id number], Partial fill upon patient request [...] 5 Refills, Maintenance, 03/27/21 10:44:00 EDT, Tablet, [facility], 1 tablet By Mouth Daily,x30 days,Instr:with food, 180, cm, 03/15/21 13:32:00 EDT, Height Start Date: 03/27/21 Stop Date: 09/23/21 Status: Ordered Nasacort Allergy 24HR 55 mcg/inh nasal spray See Instructions, 2 sprays Daily, # 1 each, 1 Refills, Maintenance, 09/25/16 12:12:25 Start Date: 09/25/16 Status: Ordered nystatin topical 054770 u/gm powder 1 application, Topically, 3 times a day, # 60 Gm, 1 Refills, Maintenance, 04/03/21 18:31:00 EDT, Powder, [facility], Partial fill upon patient request if [...] Replace Required Details, Route to Pharmacy Electronically, [facility], 180, cm, 01/10/21 14:13:00 EDT, Height Start Date: 03/03/21 Status: Ordered prazosin 1 mg oral capsule 3, capsule, By Mouth, Daily at bedtime, # 90 capsule, Refills 1, Tot. Refills 0, Maintenance, 01/04/21 15:13:00 EDT, Route to Pharmacy Electronically, [facility], 180, cm, 03/30/20 15:08:00 EDT, [...] capsule, 0 Refills, Maintenance, 06/24/20 17:18:00 EDT, [facility], 180, cm, 03/30/20 15:08:00 EDT, Height, 81.8, kg, 10/28/18 10:39:00 EST, Dry Weight Start Date: 06/24/20 Status: Ordered zolpidem 10 mg oral tablet 1 tablet, By Mouth, Daily at bedtime, PRN NEEDED FOR SLEEP, # 30 tablet, 1 Refills, Maintenance,03/03/21 11:22:00 EDT, [facility], 180, cm, 01/10/21 14:13:00 EDT, Height [...]
--- OUTSIDE RECORDS SUMMARY | 2023-01-16 23:41 | XMS_ITS | Continuity of Care Document ---
Author Name Unknown Organization [facility] Address [address] [place] [address]- Care Team Providers Care Horticultural Nursery Assistant Name Role Phone Salomon OLMEDO, Jet Primary Care Physician [facility] Date(s): 03/22/21 - 04/21/21 [facility] [address] [place] [address]- Allergies, Adverse Reactions, Alerts Substance Reaction Severity [...] 3Admin Note: recv'd at PCP office in [place] 4Admin Note: afluria 5Admin Note: Flucelvax 6Admin Note: VIS Given 7Result Comment: [08/06/2017] verbal consent obtained, allergies reviewed. Has had flu shot in past with no issues. [facility] flu vaccine sheet given. 8Admin Note: #2 9Admin Note: [facility] Records 10Admin Note: VIS given 11Admin Note: VIS given 12Result Comment: wrong patient 13Admin Note: Dr. Suarez Records 14Admin Note: [facility] Records 15Admin Note: [facility] Records #2 16Admin Note: [facility] Records #1 17Admin Note: [facility] Records Medications buPROPion 150 mg/24 hours (XL) oral tablet, extended release 1 tablet, By Mouth, Daily in AM, TAKE WITH 300 MG TAB FOR TOTAL OF 450 MG/DAY IN AM, # 30 tablet, 1Refills, Maintenance, 03/03/21 11:22:00 EDT, [facility], 30, 1 tablet By [...] Replace Required Details, Route to Pharmacy Electronically, [facility], Partial... Start Date: 02/02/21 Status: Ordered clindamycin 1% topical gel 1 application, Topically, 2 times a day, # 60 Gm, 0 Refills, Maintenance, 03/21/21 14:11:00 EDT, [id number] Partial fill upon patient request if the prescription is for a schedule II opioid drug., 1 application Topically 2 times a day, 1... Start Date: 03/21/21 Status: Ordered clotrimazole 1% topical cream 1 application, Topically, 2 times a day, # 113 Gm, 1 Refills, Maintenance, 03/15/21 13:54:00 EDT, Cream, [facility]/pharmacy #[id number], Partial fill upon patient request [...] 5 Refills, Maintenance, 03/27/21 10:44:00 EDT, Tablet, [facility], 1 tablet By Mouth Daily,x30 days,Instr:with food, 180, cm, 03/15/21 13:32:00 EDT, Height Start Date: 03/27/21 Stop Date: 09/23/21 Status: Ordered Nasacort Allergy 24HR 55 mcg/inh nasal spray See Instructions, 2 sprays Daily, # 1 each, 1 Refills, Maintenance, 09/25/16 12:12:25 Start Date: 09/25/16 Status: Ordered nystatin topical 566914 u/gm powder 1 application, Topically, 3 times a day, # 60 Gm, 1 Refills, Maintenance, 04/03/21 18:31:00 EDT, Powder, [facility], Partial fill upon patient [...] Replace Required Details, Route to Pharmacy Electronically, [facility], 180, cm, 01/10/21 14:13:00 EDT, Height Start Date: 03/03/21 Status: Ordered prazosin 1 mg oral capsule 3, capsule, By Mouth, Daily at bedtime, # 90 capsule, Refills 1, Tot. Refills 0, Maintenance, 01/04/21 15:13:00 EDT, Route to Pharmacy Electronically, [facility], 180, cm, 03/30/20 15:08:00 EDT, [...] capsule, 0 Refills, Maintenance, 06/24/20 17:18:00 EDT, [facility], 180, cm, 03/30/20 15:08:00 EDT, Height, 81.8, kg, 10/28/18 10:39:00 EST, Dry Weight Start Date: 06/24/20 Status: Ordered zolpidem 10 mg oral tablet 1 tablet, By Mouth, Daily at bedtime, PRN NEEDED FOR SLEEP, # 30 tablet, 1 Refills, Maintenance,03/03/21 11:22:00 EDT, [facility], 180, cm, 01/10/21 14:13:00 EDT, [...]
--- OUTSIDE RECORDS SUMMARY | 2023-01-16 23:41 | XMS_ITS | Continuity of Care Document ---
Author Name Unknown Organization [facility] Address [address] [place] [address]- Care Team Providers Care Digital Ad Trafficker Name Role Phone Susu Jules MD Primary Care Physician Encounter [facility] Date(s): 03/30/20 - 04/29/20 [facility] [address] [place] [address]- [facility] Attending Physician: Karen Bowser Admitting Physician: Karen Bowser Referring Physician: AdmtrKaren Allergies, Adverse Reactions, Alerts Substance Reaction Severity Status penicillin rash, SOB Active Atripla hives Active Immunizations Given and Recorded Vaccine Date Status Refusal Reason Meningococcal Conjugate Vaccine 1 07/01/18 Given Meningococcal [...] 3Admin Note: recv'd at PCP office in [place] 4Admin Note: afluria 5Admin Note: Flucelvax 6Admin Note: VIS Given 7Result Comment: [08/06/2017] verbal consent obtained, allergies reviewed. Has had flu shot in past with no issues. [facility] flu vaccine sheet given. 8Admin Note: #2 9Admin Note: [facility] Records 10Admin Note: VIS given 11Admin Note: VIS given 12Result Comment: wrong patient 13Admin Note: Dr. Suarez Records 14Admin Note: [facility] Records 15Admin Note: [facility] Records #2 16Admin Note: [facility] Records #1 17Admin Note: [facility] Records Medications [facility] intramuscular suspension 0.5 mL, Intramuscular, Once, # 0.5 mL, 0 Refills, Soft Stop, 07/10/16 12:13:00 Start Date: 07/10/16 Status: Ordered [facility] intramuscular suspension 0.5 mL, Intramuscular, Once, # 0.5 mL, 0 Refills, Soft Stop, 08/06/17 13:28:00 Start Date: 08/06/17 Status: Ordered Ambien 10 mg oral tablet 1 tablet = 10 mg, By Mouth, Daily at bedtime, PRN as needed for sleep, control valve technician reviewed, # 30 tablet, 2Refills, Maintenance, 02/18/20 10:49:00 EDT, Tablet, [facility], 180, cm, :51:00 EDT, Height, 81.8, kg, 10/28/18 10:39:00 ES... Start Date: 02/18/20 Status: Ordered Boostrix (Tdap) intramuscular suspension 0.5 mL, Intramuscular, Once, # 5 mL, 0 Refills, Soft Stop, 01/01/17 14:35:00, Suspension Start Date: 01/01/17 Status: Ordered buPROPion 300 mg/24 hours (XL) oral tablet, extended release 1 tablet = 300 mg, By Mouth, Every 24 hours, # 90 tablet, 1 Refills, Maintenance, 11/11/19 15:45:00EDT, [facility], 180, cm, 06/24/19 9:51:00 EDT, Height, 81.8, kg, 10/28/18 10:39:00 EST, Dry Weight Start Date: 11/11/19 Status: Ordered docusate sodium 100 mg oral capsule 1 capsule = 100 mg, By Mouth, 2 times a day, Hold for loose stools Drink Plenty of Water, # 60 capsule, 3 Refills, Maintenance, 03/03/14 18:39:45, Capsule, 1 capsule By Mouth 2 times a day,x30 days,Instr:Hold for loose stools ; Drink Plenty of Water Start Date: 03/03/14 Stop Date: 07/01/14 Status: Ordered Flucelvax [id number] intramuscular suspension 0.5 mL, Intramuscular, Once, # 0.5 mL, 0 Refills, Soft Stop, 09/13/15 14:14:54 Start Date: 09/13/15 Status: Ordered Genvoya oral tablet 1 tablet, By Mouth, Daily, with food, # 30 tablet, 5 Refills, Maintenance, 01/04/20 16:38:00 EDT, Tablet, [facility], 1 tablet By Mouth Daily,x30 days,Instr:with food, 180, cm, 06/24/19 9:51:00 EDT, Height, 81.8, kg, 10/28/18 10:39:00... Start Date: 01/04/20 Stop Date: 07/02/20 Status: Ordered Menveo intramuscular injection 0.5 mL, Intramuscular, Once, # 0.5 mL, 0 Refills, Soft Stop, 01/01/17 14:35:00 Start Date: 01/01/17 Status: Ordered Menveo intramuscular injection 0.5 mL, Intramuscular, Once, Second dose, # 0.5 mL, 0 Refills, Soft Stop, 07/01/18 10:28:00 EST Start Date: 07/01/18 Status: Ordered Nasacort Allergy 24HR 55 mcg/inh nasal spray See Instructions, 2 sprays Daily, # 1 each, 1 Refills, Maintenance, 09/25/16 12:12:25 Start Date: 09/25/16 Status: Ordered oxyCODONE 5 mg oral tablet 5 mg, 1, tablet, By Mouth, Every 6 hours, PRN, # 28 tablet, Refills 0, Tot. Refills 0, Maintenance,for pain, 11/05/18 10:46:17 EDT, Print Requisition Start Date: 11/05/18 Status: Ordered prazosin 1 mg oral capsule See Instructions, take 1 cap qhs po x 2 nights then take 2 caps qhs x 2 nights then take 3 caps qhs., # 90 capsule, Refills 2, Tot. Refills 2, Maintenance, 11/11/19 15:45:00 EDT, Instructions ReplaceRequired Details, Route to Pharmacy Electronically,... Start Date: 11/11/19 Status: Ordered Prevnar 13 intramuscular suspension 0.5 mL, Intramuscular, Once, # 1 each, 0 Refills, Soft Stop, Suspension Start Date: 07/28/13 Status: Ordered Valium 5 mg oral tablet 5 mg, 1, tablet, By Mouth, 3 times a day, PRN, for anal spasms, # 40 tablet, Refills 0, Tot. Refills 0, Maintenance, Spasm, 10/27/18 12:55:38 EST, Print Requisition Start Date: 10/27/18 Status: Ordered ZyrTEC 10 mg oral tablet 1 tablet = 10 mg, By Mouth, Daily, # 30 tablet, 0 Refills, Maintenance, 11/11/18 12:39:40 EDT, Tablet Start Date: 11/11/18 Status: Ordered Problem List Condition Effective Dates Status Health Status Inform ant High grade squamous intraepi thelial lesion on cytologic smear of anus (hgsil)(Confirmed) 1 Active Anxiety(Confirmed) Active Back pain(Confirmed) Active Gynecomastia(Confirmed) Active HIV(Confirmed) Active Irritable bowel syndrome(Confirmed) Active Seborrheic dermatitis(Confirmed) Active 112-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 Social History Social History Type Response Smoking Status Former smoker; [employer] user in household: No entered on: 09/29/13 Sex
--- OUTSIDE RECORDS SUMMARY | 2023-01-16 23:41 | XMS_ITS | Continuity of Care Document ---
Author Name Unknown Organization [facility] As pending sale to [employer] Address [address] [place] [address] ve [address] [place] [address]- Care Team Providers Care Fare Enforcement Officer Name Role Phone Salomon OLMEDO, Jet Primary Care Physician [phone] Encounter [facility] Date(s): 03/13/21 - 03/20/21 [facility] [address] [place] [address]- Attending Physician: Tere AYOUB, Shreya Pearson Referring Physician: Kashif Chamberlain MD Allergies, Adverse Reactions, Alerts Substance Reaction Severity [...] 3Admin Note: recv'd at PCP office in [place] 4Admin Note: afluria 5Admin Note: Flucelvax 6Admin Note: VIS Given 7Result Comment: [08/06/2017] verbal consent obtained, allergies reviewed. Has had flu shot in past with no issues. [facility] flu vaccine sheet given. 8Admin Note: #2 9Admin Note: [facility] Records 10Admin Note: VIS given 11Admin Note: VIS given 12Result Comment: wrong patient 13Admin Note: Dr. Suarez Records 14Admin Note: [facility] Records 15Admin Note: [facility] Records #2 16Admin Note: [facility] Records #1 17Admin Note: [facility] Records Medications [facility] intramuscular suspension 0.5 mL, Intramuscular, Once, # 0.5 mL, 0 Refills, Soft Stop, 07/10/16 12:13:00 Start Date: 07/10/16 Status: Ordered [facility] intramuscular suspension 0.5 mL, Intramuscular, Once, # 0.5 mL, 0 Refills, Soft Stop, 08/06/17 13:28:00 Start Date: 08/06/17 Status: Ordered Boostrix (Tdap) intramuscular suspension 0.5 mL, Intramuscular, Once, # 5 mL, 0 Refills, Soft Stop, 01/01/17 14:35:00, Suspension Start Date: 01/01/17 Status: Ordered buPROPion 150 mg/24 hours (XL) oral tablet, extended release 1 tablet, By Mouth, Daily in AM, TAKE WITH 300 MG TAB FOR TOTAL OF 450 MG/DAY IN AM, # 30 tablet, 1Refills, Maintenance, 03/03/21 11:22:00 EDT, [facility], 30, 1 tablet By [...] Replace Required Details, Route to Pharmacy Electronically, [facility], Partial... Start Date: 02/02/21 Status: Ordered clotrimazole 1% topical cream 1 application, Topically, 2 times a day, # 113 Gm, 1 Refills, Maintenance, 03/15/21 13:54:00 EDT, Cream, [facility]/pharmacy #[id number], Partial fill upon patient request if the [...] 03/03/14 Stop Date: 07/01/14 Status: Ordered Flucelvax [id number] intramuscular suspension 0.5 mL, Intramuscular, Once, # 0.5 mL, 0 Refills, Soft Stop, 09/13/15 14:14:54 Start Date: 09/13/15 Status: Ordered Genvoya oral tablet 1 tablet, By Mouth, Daily, with food, # 30 tablet, 5 Refills, Maintenance, 09/13/20 10:33:00 EST, Tablet, [facility], 1 tablet By Mouth Daily,x30 days,Instr:with food, 180, cm, 03/30/20 15:08:00 EDT, Height, 81.8, kg, 10/28/18 10:39:0... Start Date: 09/13/20 Stop Date: 03/12/21 Status: Ordered Menveo intramuscular injection 0.5 mL, [...] Replace Required Details, Route to Pharmacy Electronically, [facility], 180, cm, 01/10/21 14:13:00 EDT, Height Start Date: 03/03/21 Status: Ordered prazosin 1 mg oral capsule 3, capsule, By Mouth, Daily at bedtime, # 90 capsule, Refills 1, Tot. Refills 0, Maintenance, 01/04/21 15:13:00 EDT, Route to Pharmacy Electronically, [facility], 180, cm, 03/30/20 15:08:00 EDT, Height Start Date: 01/04/21 Status: Ordered Prevnar 13 intramuscular suspension 0.5 [...] capsule, 0 Refills, Maintenance, 06/24/20 17:18:00 EDT, [facility], 180, cm, 03/30/20 15:08:00 EDT, Height, 81.8, kg, 10/28/18 10:39:00 EST, Dry Weight Start Date: 06/24/20 Status: Ordered zolpidem 10 mg oral tablet 1 tablet, By Mouth, Daily at bedtime, PRN NEEDED FOR SLEEP, # 30 tablet, 1 Refills, Maintenance,03/03/21 11:22:00 EDT, [facility], 180, cm, 01/10/21 14:13:00 EDT, Height [...] Most recent to oldest [Reference Range]: 1 Height 180 cm (03/13/21 8:42 AM) Weight 78 kg (03/13/21 8:42 AM) Pulse Rate [55-90 bpm] 82 bpm (03/13/21 8:42 AM) Body Mass Index [18.5-24.99] 24.07 (03/13/21 8:42 AM) Blood Pressure [90-138/55-84 mm Hg] 114/ 77mm Hg (03/13/21 8:42 AM) Respiratory Rate [16-30 br/min] 12 br/mi n *L* (03/13/21 8:42 AM) Temperature [96.8-100.4 DegF] 97 DegF (03/13/21 8:42 AM) Social History Social History Type Response Smoking Status Former smoker; Tobac co user in household: No entered on: 09/29/13 Sex
--- OUTSIDE RECORDS SUMMARY | 2023-01-16 23:41 | XMS_ITS | Continuity of Care Document ---
Author Name Unknown Organization [facility] Address [address] [place] [address]- Care Team Providers Care Pewter Fabricator Name Role Phone Jet Latif MD Primary Care Physician [phone] Encounter [facility] Date(s): 06/29/22 - 07/06/22 [facility] [address] [place] [address]- Encounter Diagnosis HIV positive(Discharge Diagnosis) - 06/29/22 Candidal intertrigo(Discharge Diagnosis) - 06/29/22 Anxiety(Discharge Diagnosis) - 06/29/22 Attending Physician: Jet Latif MD Allergies, Adverse Reactions, Alerts Substance Reaction [...] 3Admin Note: recv'd at PCP office in [place] 4Admin Note: afluria 5Admin Note: Flucelvax 6Admin Note: VIS Given 7Result Comment: [08/06/2017] verbal consent obtained, allergies reviewed. Has had flu shot in past with no issues. [facility] flu vaccine sheet given. 8Admin Note: #2 9Admin Note: [facility] Records 10Admin Note: VIS given 11Admin Note: VIS given 12Result Comment: wrong patient 13Admin Note: Dr. Suarez Records 14Admin Note: [facility] Records 15Admin Note: [facility] Records #2 16Admin Note: [facility] Records #1 17Admin Note: [facility] Records Medications buPROPion 150 mg/24 hours (XL) oral tablet, extended release See Instructions, TAKE 1 TABLET BY MOUTH EVERY MORNING, # 30 tablet, 2 Refills, 07/04/22 12:32:00 EST, [facility], 30, TAKE 1 TABLET BY MOUTH EVERY MORNING, 180, cm, 06/29/22 9:00:00EDT, Height Start Date: 07/04/22 Status: Ordered buPROPion 300 mg/24 hours (XL) oral tablet, extended release See Instructions, TAKE 1 TABLET BY MOUTH EVERY DAY, # 30 tablet, 2 Refills, 07/04/22 12:31:00 EST, [facility], 180, cm, 06/29/22 9:00:00 EDT, Height Start Date: 07/04/22 Status: Ordered busPIRone 5 mg oral tablet See Instructions, Take 1 tab qam po and 2 tabs qhs, # 180 tablet, Refills 2, Tot. Refills 2, 07/04/22 12:31:00 EST, Instructions Replace Required Details, Route to Pharmacy Electronically, [facility], 180, cm, 06/29/22 9:00:00 EDT, He... Start Date: 07/04/22 Status: Ordered docusate sodium 100 mg oral capsule 1 capsule = 100 mg, By Mouth, 2 times a day, Hold for loose stools Drink Plenty of Water, # 60 capsule, 3 Refills, Maintenance, 03/03/14 18:39:45, Capsule, 1 capsule By Mouth 2 times a day,x30 days,Instr:Hold for loose stools ; Drink Plenty of Water Start Date: 03/03/14 Stop Date: 07/01/14 Status: Ordered fluconazole 150 mg oral tablet 1 tablet = 150 mg, By Mouth, Every week, for 4 week(s), # 4 tablet, 0 Refills, Acute 07/27/22 9:34:00 EST, 06/29/22 9:34:00 EDT, Tablet, [facility]/pharmacy #[id number], Partial fill upon patient request if the prescription is for a schedule II opioid drug., 180,... Start Date: 06/29/22 Stop Date: 07/27/22 Status: Ordered Genvoya oral tablet 1 tablet, By Mouth, Daily, with food, # 30 tablet, 5 Refills, Maintenance, 05/09/22 11:02:00 EDT, Tablet, [facility], 1 tablet By Mouth Daily,x30 days,Instr:with food, 180, cm, 01/23/22 14:19:00 EDT, Height Start Date: 05/09/22 Stop Date: 11/05/22 Status: Ordered Nasacort Allergy 24HR 55 mcg/inh nasal spray See Instructions, 2 sprays Daily, # 1 each, 1 Refills, Maintenance, 01/31/17 12:12:25 Start Date: 09/25/16 Status: Ordered prazosin 1 mg oral capsule See Instructions, TAKE 4 CAPSULES BY MOUTH ONCE DAILY AT BEDTIME, # 120 capsule, Refills 2, Tot. Refills 2, 07/04/22 12:32:00 EST, Instructions Replace Required Details, Route to Pharmacy Electronically, [facility], 180, cm, 06/29/22... Start Date: 07/04/22 Status: Ordered Vistaril pamoate 25 mg oral capsule See Instructions, PRN as needed for anxiety, take 1-2 caps po bid prn for anxiety or insomnia. Max 4 caps/day, # 120 capsule, 2 Refills, Maintenance, 07/04/22 12:32:00 EST, [facility], 180, cm, 06/29/22 9:00:00 EDT, Height Start Date: 07/04/22 Status: Ordered zolpidem 10 mg oral tablet See Instructions, TAKE ONE TABLET BY MOUTH EVERY NIGHT AT BEDTIME NEEDED FOR SLEEP, # 30 tablet,2 Refills, Maintenance, 07/04/22 12:32:00 EST, [facility], 180, cm, 06/29/22 9:00:00 EDT, Height Start Date: 07/04/22 Status: Ordered zolpidem 10 mg oral tablet See Instructions, TAKE ONE TABLET BY MOUTH EVERY NIGHT AT BEDTIME NEEDED FOR SLEEP, # 30 tablet,2 Refills, Maintenance, 03/08/22 9:53:00 EDT, [facility], 180, cm, 01/23/22 14:19:00 EDT, Height Start Date: 03/08/22 Status: Ordered zolpidem 10 mg oral tablet See Instructions, TAKE ONE TABLET BY MOUTH EVERY NIGHT AT BEDTIME NEEDED FOR SLEEP, # 30 tablet,1 Refills, Maintenance, 12/08/21 6:04:00 EDT, [facility], 180, cm, 07/11/21 14:47:00 EST, Height Start Date: 12/08/21 Status: Ordered ZyrTEC 10 mg oral tablet 1 tablet = 10 mg, By Mouth, Daily, # 30 tablet, 11 Refills, Maintenance, 01/23/22 14:27:00 EDT, Tablet, [facility]/pharmacy #1, 180, cm, 01/23/22 14:19:00 EDT, Height Start [...] intraepithelial neoplasia, high-grade (AIN3 / severe dysplasia). Diagnosis Diagnosis Type Effective Dates Health Status Clinical Service Informant HIV positive Discharge Diagnosis 06/29/22 Candidal intertrigo Discharge Diagnosis 06/29/22 Anxiety Discharge Diagnosis 06/29/22 Vital Signs Most recent to oldest [Reference Range]: 1 Height 180 cm (06/29/22 9:00 AM) Weight 81.8 kg (06/29/22 9:00 AM) Oxygen Saturation [94-100 %] 97 % (06/29/22 9:00 AM) Pulse Rate [55-90 bpm] 108 bpm *H* (06/29/22 9:00 AM) Body Mass Index [18.5-24.99 kg/m2] 25.25 kg/m2 *H* (06/29/22 9:00 AM) Blood Pressure [90-138/55-84 mm Hg] 126/ 78mm Hg (06/29/22 9:00 AM) Mode of Delivery (Oxygen) Room air (06/29/22 9:00 AM) Blood pressure sites Arm, right (06/29/22 9:00 AM) Social History Social History Type Response Smoking Status Former smoker; Tobac co user in household: No entered on: 09/29/13 Sex Note * Dayna Wei: PERFORM, SIGN, VERIFY Event Display: Patient Education/Instruction Authored Date: [id number] [facility] Clinical Summary Name IOANA YAÑEZ Age 37 Years 1985 PCP Jet Latif MD PCP Visit Date 06/29/2022 08:40:[address] Wilson [phone] for an appointment for the rash. Please continue your allergy medicinesand start the 4 week course of fluconazole. The pulp piler can do skin scrapings/ evaluations and treat it better with creams. Additional Instructions: Scheduled Appointments?? Future Appointments ?*[facility] ?[id number]??[place],??[place],??[address] ?Phone:??--?Fax:??-- ?Appt. Date:??08/21/2022?11:20 AM ?Scheduled Provider:??Kashif Chamberlain MD Follow-Up Instructions ?? Diagnosis Medications: Please continue your medications until treatment is completed or stopped by your provider. Discuss any questions related to medications with your provider. New Medications [facility]/pharmacy #[id number], [address], [place] [id number], [phone] Fluconazole (fluconazole 150 mg oral tablet) 1 tab(s) Oral every week for 4 week(s). Refills: 0. Next Dose: Medications to Continue with No Changes These medications were not printed or sent to your pharmacy BuPROpion (buPROPion 150 mg/24 hours (XL) oral tablet, extended release) TAKE 1 TABLET BY MOUTH EVERY MORNING. Refills: 2. Next Dose: BuPROpion (buPROPion 300 mg/24 hours (XL) oral tablet, extended release) TAKE 1 TABLET BY MOUTH EVERY DAY. Refills: 2. Next Dose: BusPIRone (busPIRone 5 mg oral tablet) Take 1 tab qam po and 2 tabs qhs. Refills: 2. Next Dose: Cetirizine (ZyrTEC 10 mg oral tablet) 1 tab(s) Oral Daily. Refills: 11. Next Dose: cobicist/elvitegra/emtricitab/tenofov (Genvoya oral tablet) 1 tab(s) Oral Daily for 30 Days. with food. Refills: 5. Next Dose: Docusate (docusate sodium 100 mg oral capsule) 1 capsule Oral twice a day for 30 Days. Hold for loose stools Drink Plenty of Water. Refills: 3. Next Dose: HydrOXYzine (Vistaril pamoate 25 mg oral capsule) take 1-2 caps po bid prn for anxiety or insomnia.Max 4 caps/day; as needed as needed for anxiety. Refills: 1. Next Dose: Prazosin (prazosin 1 mg oral capsule) TAKE 4 CAPSULES BY MOUTH ONCE DAILY AT BEDTIME. Refills: 2. Next Dose: Triamcinolone Nasal (Nasacort Allergy 24HR 55 mcg/inh nasal spray) 2 sprays Daily. Refills: 1. Next Dose: Zolpidem (zolpidem 10 mg oral tablet) TAKE ONE TABLET BY MOUTH EVERY NIGHT AT BEDTIME NEEDED FORSLEEP. Refills: 1. Next Dose: Zolpidem (zolpidem 10 mg oral tablet) TAKE ONE TABLET BY MOUTH EVERY NIGHT AT BEDTIME NEEDED FORSLEEP. Refills: 1. Next Dose: Zolpidem (zolpidem 10 mg oral tablet) TAKE ONE TABLET BY MOUTH EVERY NIGHT AT BEDTIME NEEDED FORSLEEP. Refills: 2. Next Dose: Allergy Info:?? Atripla Medications Given This Visit Future Orders ?No future orders Vital Signs Height 180 cm Weight 81.8 kg BMI 25.25 kg/m2 Blood Pressure 126 mm Hg/78 mm Hg Temperature Pulse Rate 108 bpm Respiratory Rate 02 Sat Mode of Delivery 97 %/Room air You can now view a summary of your hospital visit from the comfort of your home through a free online portal called [employer] is a website that allows you to securely view your medical information including discharge summary, medications and follow-up visits. ??You can alsosend a secure electronic message to your doctor???s office to request appointments, renew medications or just ask a question. You can enroll at [email or web address] or register during your next office visit. Disclaimer:?? The information provided is of a general nature and is intended to be used in conjunction with the recommendations and advice of your health care practitioner. ??Every effort has been made to ensure that the information provided is accurate and complete at the time it is provided to you however, as your needs change, or, as new ??information becomes available, different or additional instructions may be required. If you have questions, please consult with your primary care provider or pharmacist, as appropriate. ??This information is not intended to serve as substitution for assessment and evaluation by a qualified health care provider. If you do not have a primary care provider, you may find a [facility] provider by calling [facility] at [phone]. For information about the plan of care including goals and instructions for your diagnosis, please see the patient education orders section of this document. Patient Education Materials?? The content of this educational material or handout may have been modified, supplemented, or adapted from its original content and format to support your individualized medical care. Patient Care team information Care Team Personnel Name: Jet Latif MD Position: S Primary Care Physician Member Role: PCP Address: Address: [address] [place] [address] Adult & [place] [address]- Name: Kashif Chamberlain MD Position: [facility] Infectious Disease MD Member Role: Lifetime Consulting Physician Address: Address: [address] [place] [address] [place] [address]- Care Team Related Persons Name: ANNA IBARRA Address: [address] [place] [address]
--- OUTSIDE RECORDS SUMMARY | 2023-01-16 23:41 | XMS_ITS | Continuity of Care Document ---
Author Name Unknown Organization [facility] Address [address] [place] [address]- Care Team Providers Care Sap Bw Bi Developer Name Role Phone Salomon OLMEDO, [facility] Primary Care Physician [phone] Encounter [facility] Date(s): 04/27/22 - 06/07/22 [facility] [address]- Attending Physician: Adama Gunn MD Admitting Physician: Adama Gunn MD Allergies, Adverse Reactions, Alerts Substance Reaction [...] 3Admin Note: recv'd at PCP office in [place] 4Admin Note: afluria 5Admin Note: Flucelvax 6Admin Note: VIS Given 7Result Comment: [08/06/2017] verbal consent obtained, allergies reviewed. Has had flu shot in past with no issues. [facility] flu vaccine sheet given. 8Admin Note: #2 9Admin Note: [facility] Records 10Admin Note: VIS given 11Admin Note: VIS given 12Result Comment: wrong patient 13Admin Note: Dr. Suarez Records 14Admin Note: [facility] Records 15Admin Note: [facility] Records #2 16Admin Note: [facility] Records #1 17Admin Note: [facility] Records Medications buPROPion 150 mg/24 hours (XL) oral tablet, extended release See Instructions, TAKE 1 TABLET BY MOUTH EVERY MORNING, # 30 tablet, 2 Refills, 03/08/22 9:52:00 EDT, [facility], 30, TAKE 1 TABLET BY MOUTH EVERY MORNING, 180, cm, 01/23/22 14:19:00EDT, Height Start Date: 03/08/22 Status: Ordered buPROPion 300 mg/24 hours (XL) oral tablet, extended release See Instructions, TAKE 1 TABLET BY MOUTH EVERY DAY, # 30 tablet, 2 Refills, 03/08/22 9:52:00 EDT, [facility], 180, cm, 01/23/22 14:19:00 EDT, Height Start Date: 03/08/22 Status: Ordered busPIRone 5 mg oral tablet See Instructions, Take 1 tab qam po and 2 tabs qhs, # 180 tablet, Refills 2, Tot. Refills 2, 03/08/22 9:51:00 EDT, Instructions Replace Required Details, Route to Pharmacy Electronically, [facility], 180, cm, 01/23/22 14:19:00 EDT, He... Start Date: 03/08/22 Status: Ordered clindamycin 1% topical gel 1 application, Topically, 2 times a day, # 60 Gm, 0 Refills, Maintenance, 03/21/21 14:11:00 EDT, Gel, [facility]/pharmacy #[id number], Partial fill upon patient request if the prescription is for a schedule II opioid drug., 1 application Topically 2 times a day, 1... Start Date: 03/21/21 Status: Ordered clotrimazole 1% topical cream 1 application, Topically, 2 times a day, # 113 Gm, 1 Refills, Maintenance, 03/15/21 13:54:00 EDT, Cream, [facility]/pharmacy #[id number], Partial fill upon patient [...] 5 Refills, Maintenance, 05/09/22 11:02:00 EDT, Tablet, [facility], 1 tablet By Mouth Daily,x30 days,Instr:with food, 180, cm, 01/23/22 14:19:00 EDT, Height Start Date: 05/09/22 Stop Date: 11/05/22 Status: Ordered Nasacort Allergy 24HR 55 mcg/inh nasal spray See Instructions, 2 sprays Daily, # 1 each, 1 Refills, Maintenance, 09/25/16 12:12:25 Start Date: 09/25/16 Status: Ordered nystatin topical [id number] u/gm powder 1 application, Topically, 3 times a day, # 60 Gm, 1 Refills, Maintenance, 06/06/21 14:33:00 EDT, Powder, [facility]/pharmacy #[id number], Partial fill upon patient request if the prescription is for a schedule IIopioid drug., 1 application Topically 3 times a day... Start Date: 06/06/21 Status: Ordered prazosin 1 mg oral capsule See Instructions, TAKE 4 CAPSULES BY MOUTH ONCE DAILY AT BEDTIME, # 120 capsule, Refills 2, Tot. Refills 2, Instructions Replace Required Details, Route to Pharmacy Electronically, [facility], 180, cm, 01/23/22 14:19:00 EDT, Height Start Date: 03/08/22 Status: Ordered Vistaril pamoate 25 mg oral capsule See Instructions, PRN as needed for anxiety, take 1-2 caps po bid prn for anxiety or insomnia. Max 4 caps/day, # 120 capsule, 1 Refills, Maintenance, 12/08/21 6:01:00 EDT, [facility], 180, cm, 07/11/21 14:47:00 EST, Height Start Date: 12/08/21 Status: Ordered zolpidem 10 mg oral tablet See Instructions, TAKE ONE TABLET BY MOUTH EVERY NIGHT AT BEDTIME NEEDED FOR SLEEP, # 30 tablet,2 Refills, Maintenance, 03/08/22 9:53:00 EDT, [facility], 180, cm, 01/23/22 14:19:00 EDT, Height Start Date: 03/08/22 Status: Ordered zolpidem 10 mg oral tablet See Instructions, TAKE ONE TABLET BY MOUTH EVERY NIGHT AT BEDTIME NEEDED FOR SLEEP, # 30 tablet,1 Refills, Maintenance, 10/26/21 17:15:00 EST, [facility], 180, cm, 07/11/21 14:47:00 EST, Height Start Date: 10/26/21 Status: Ordered zolpidem 10 mg oral tablet See Instructions, TAKE ONE TABLET BY MOUTH EVERY NIGHT AT BEDTIME NEEDED FOR SLEEP, # 30 tablet,1 Refills, Maintenance, 12/08/21 6:04:00 EDT, [facility], 180, cm, 07/11/21 14:47:00 EST, Height Start Date: 12/08/21 Status: Ordered ZyrTEC 10 mg oral tablet 1 tablet = 10 mg, By Mouth, Daily, # 30 tablet, 11 Refills, Maintenance, 01/23/22 14:27:00 EDT, Tablet, [facility]/pharmacy #[id number], 180, cm, 01/23/22 14:19:00 EDT, Height [...] Personnel Name: Jet Latif MD Address: Address: [address] [place] [address] Adult & Pediatric Medicine [place], [place] [address]
--- OUTSIDE RECORDS SUMMARY | 2023-01-16 23:41 | XMS_ITS | Continuity of Care Document ---
Author Name Unknown Organization [facility] Address [address] [place] [address]- Care Team Providers Care Disease Education Specialist Name Role Phone Salomon OLMEDO, Jet Primary Care Physician [phone] [place] [facility] [place] 09/15/21 - 10/15/21 [facility] [address] [place], [place] [address] Attending Physician: Karen Bowser Admitting Physician: Karen [...] 07/01/13 Given Hepatitis A Adult Vaccine 8 2/26/13 Given Hepatitis A Adult Vaccine 03/18/12 Given [...] 3Admin Note: recv'd at PCP office in [place] 4Admin Note: afluria 5Admin Note: Flucelvax 6Admin Note: VIS Given 7Result Comment: [08/06/2017] verbal consent obtained, allergies reviewed. Has had flu shot in past with no issues. [facility] flu vaccine sheet given. 8Admin Note: #2 9Admin Note: [facility] Records 10Admin Note: VIS given 11Admin Note: VIS given 12Result Comment: wrong patient 13Admin Note: Dr. Suarez Records 14Admin Note: [facility] Records 15Admin Note: [facility] Records #2 16Admin Note: [facility] Records #1 17Admin Note: [facility] Records Medications buPROPion 150 mg/24 hours (XL) oral tablet, extended release See Instructions, TAKE 1 TABLET BY MOUTH EVERY MORNING, # 30 tablet, 1 Refills, [id number], 30, TAKE 1 TABLET BY MOUTH EVERY MORNING, 180, cm, 07/11/21 14:47:00 EST, Height Start Date: 09/14/21 Status: Ordered buPROPion 300 mg/24 hours (XL) oral tablet, extended release See Instructions, TAKE 1 TABLET BY MOUTH EVERY DAY, # 30 tablet, 1 Refills, [id number], 180, cm, 07/11/21 14:47:00 EST, Height Start Date: 09/14/21 Status: Ordered busPIRone 5 mg oral tablet See Instructions, Take 1 tab po bid, # 60 tablet, Refills 1, Tot. Refills 1, Instructions Replace Required Details, Route to Pharmacy Electronically, [facility], 180, cm, 07/11/21 14:47:00 EST, Height Start Date: 09/14/21 Status: Ordered clindamycin 1% topical gel 1 application, Topically, 2 times a day, # 60 Gm, 0 Refills, Maintenance, 03/21/21 14:11:00 EDT, Gel, [facility]/pharmacy #[id number], Partial fill upon patient request if the prescription is for a schedule II opioid drug., 1 application Topically 2 times a day, 1... Start Date: 03/21/21 Status: Ordered clotrimazole 1% topical cream 1 application, Topically, 2 times a day, # 113 Gm, 1 Refills, Maintenance, 03/15/21 13:54:00 EDT, Cream, [facility]/pharmacy #[id number], Partial fill upon patient request if [...] Refills, Maintenance, 03/27/21 10:44:00 EDT, Tablet, [facility], 1 tablet By Mouth Daily,x30 days,Instr:with food, 180, cm, 03/15/21 13:32:00 EDT, Height Start Date: 03/27/21 Stop Date: 09/23/21 Status: Ordered Nasacort Allergy 24HR 55 mcg/inh nasal spray See Instructions, 2 sprays Daily, # 1 each, 1 Refills, Maintenance, 09/25/16 12:12:25 Start Date: 09/25/16 Status: Ordered nystatin topical 764642 u/gm powder 1 application, Topically, 3 times a day, # 60 Gm, 1 Refills, Maintenance, 06/06/21 14:33:00 EDT, Powder, [facility]/pharmacy #[id number], Partial fill upon patient request if the prescription is for a schedule IIopioid drug., 1 application Topically 3 times a day... Start Date: 06/06/21 Status: Ordered prazosin 1 mg oral capsule 3, capsule, By Mouth, Daily at bedtime, # 90 capsule, Refills 11, Tot. Refills 11, 08/09/21 11:17:00 EST, [id number] 180, cm, 07/11/21 14:47:00 EST, Height Start Date: 08/09/21 Status: Ordered Vistaril pamoate 25 mg oral capsule See Instructions, PRN as needed for anxiety, take 1-2 caps po bid prn for anxiety or insomnia. Max 4 caps/day, # 120 capsule, 1 Refills, Maintenance, 09/20/21 17:10:00 EST, [facility]/pharmacy #[id number], 180, cm, 07/11/21 14:47:00 EST, Height Start Date: 09/20/21 Status: Ordered zolpidem 10 mg oral tablet See Instructions, TAKE ONE TABLET BY MOUTH EVERY NIGHT AT BEDTIME NEEDED FOR SLEEP, # 30 tablet,2 Refills, Maintenance, 08/22/21 12:10:00 EST, [facility], 180, cm, 07/11/21 14:47:00 [...]
--- OUTSIDE RECORDS SUMMARY | 2023-01-16 23:41 | XMS_ITS | Continuity of Care Document ---
Author Name Unknown Organization [facility] Address [address] [place] [address]- Care Team Providers Care E Commerce Developer Name Role Phone Salomon OLMEDO, Richa Primary Care Physician [phone] [facility]counter [facility] Date(s): 03/28/22 - 04/27/22 [facility] [address]- [place] Allergies, Adverse Reactions, Alerts Substance Reaction [...] 3Admin Note: recv'd at PCP office in [place] 4Admin Note: afluria 5Admin Note: Flucelvax 6Admin Note: VIS Given 7Result Comment: [08/06/2017] verbal consent obtained, allergies reviewed. Has had flu shot in past with no issues. [facility] flu vaccine sheet given. 8Admin Note: #2 9Admin Note: [facility] Records 10Admin Note: VIS given 11Admin Note: VIS given 12Result Comment: wrong patient 13Admin Note: Dr. Suarez Records 14Admin Note: [facility] Records 15Admin Note: [facility] Records #2 16Admin Note: [facility] Records #1 17Admin Note: [facility] Records Medications buPROPion 150 mg/24 hours (XL) oral tablet, extended release See Instructions, TAKE 1 TABLET BY MOUTH EVERY MORNING, # 30 tablet, 2 Refills, 03/08/22 9:52:00 EDT, [facility], 30, TAKE 1 TABLET BY MOUTH EVERY MORNING, 180, cm, 01/23/22 14:19:00EDT, Height Start Date: 03/08/22 Status: Ordered buPROPion 300 mg/24 hours (XL) oral tablet, extended release See Instructions, TAKE 1 TABLET BY MOUTH EVERY DAY, # 30 tablet, 2 Refills, 03/08/22 9:52:00 EDT, [facility], 180, cm, 01/23/22 14:19:00 EDT, Height Start Date: 03/08/22 Status: Ordered busPIRone 5 mg oral tablet See Instructions, Take 1 tab qam po and 2 tabs qhs, # 180 tablet, Refills 2, Tot. Refills 2, 03/08/22 9:51:00 EDT, Instructions Replace Required Details, Route to Pharmacy Electronically, [facility], 180, cm, 01/23/22 14:19:00 EDT, He... Start Date: 03/08/22 Status: Ordered clindamycin 1% topical gel 1 application, Topically, 2 times a day, # 60 Gm, 0 Refills, Maintenance, 03/21/21 14:11:00 EDT, Gel, [facility]/pharmacy #[id number], Partial fill upon patient request if the prescription is for a schedule II opioid drug., 1 application Topically 2 times a day, 1... Start Date: 03/21/21 Status: Ordered clotrimazole 1% topical cream 1 application, Topically, 2 times a day, # 113 Gm, 1 Refills, Maintenance, 03/15/21 13:54:00 EDT, Cream, [facility]/pharmacy #[id number], Partial fill upon patient request if [...] 5 Refills, Maintenance, 11/20/21 10:48:00 EDT, Tablet, [facility], 1 tablet By Mouth Daily,x30 days,Instr:with food, 180, cm, 07/11/21 14:47:00 EST, Height Start Date: 11/20/21 Stop Date: 05/19/22 Status: Ordered Nasacort Allergy 24HR 55 mcg/inh nasal spray See Instructions, 2 sprays Daily, # 1 each, 1 Refills, Maintenance, 09/25/16 12:12:25 Start Date: 09/25/16 Status: Ordered nystatin topical 535902 u/gm powder 1 application, Topically, 3 times a day, # 60 Gm, 1 Refills, Maintenance, 06/06/21 14:33:00 EDT, Powder, [facility]/pharmacy #[id number], Partial fill upon patient request if the prescription is for a schedule IIopioid drug., 1 application Topically 3 times a day... Start Date: 06/06/21 Status: Ordered prazosin 1 mg oral capsule See Instructions, TAKE 4 CAPSULES BY MOUTH ONCE DAILY AT BEDTIME, # 120 capsule, Refills 2, Tot. Refills 2, Instructions Replace Required Details, [facility], 180, cm, 01/23/22 14:19:00 EDT, Height Start Date: 03/08/22 Status: Ordered Vistaril pamoate 25 mg oral capsule See Instructions, PRN as needed for anxiety, take 1-2 caps po bid prn for anxiety or insomnia. Max 4 caps/day, # 120 capsule, 1 Refills, Maintenance, 12/08/21 6:01:00 EDT, [facility], 180, cm, 07/11/21 14:47:00 EST, Height Start Date: 12/08/21 Status: Ordered zolpidem 10 mg oral tablet See Instructions, TAKE ONE TABLET BY MOUTH EVERY NIGHT AT BEDTIME NEEDED FOR SLEEP, # 30 tablet,2 Refills, Maintenance, 03/08/22 9:53:00 EDT, [facility], 180, cm, 01/23/22 14:19:00 EDT, Height Start Date: 03/08/22 Status: Ordered zolpidem 10 mg oral tablet See Instructions, TAKE ONE TABLET BY MOUTH EVERY NIGHT AT BEDTIME NEEDED FOR SLEEP, # 30 tablet,1 Refills, Maintenance, 10/26/21 17:15:00 EST, [facility], 180, cm, 07/11/21 14:47:00 EST, Height Start Date: 10/26/21 Status: Ordered zolpidem 10 mg oral tablet See Instructions, TAKE ONE TABLET BY MOUTH EVERY NIGHT AT BEDTIME NEEDED FOR SLEEP, # 30 tablet,1 Refills, Maintenance, 12/08/21 6:04:00 EDT, [facility], 180, cm, 07/11/21 14:47:00 EST, Height Start Date: 12/08/21 Status: Ordered ZyrTEC 10 mg oral tablet 1 tablet = 10 mg, By Mouth, Daily, # 30 tablet, 11 Refills, Maintenance, 01/23/22 14:27:00 EDT, Tablet, [facility]/pharmacy #[id number], 180, cm, 01/23/22 14:19:00 EDT, Height Start Date: 01/23/22 Status: Ordered Problem List Condition Effective Dates [...] in household: No entered on: 09/29/13 Sex Care Team Personnel Name: Salomon OLMEDO, Jet Address: [address] [place] [address] Adult & Pediatric Medicine [address]
--- OUTSIDE RECORDS SUMMARY | 2023-01-16 23:41 | XMS_ITS | Continuity of Care Document ---
Author Name Unknown Organization [facility] Address [address] [place] [address]- Care Team Providers Care Radiology Nurse Name Role Phone Salomon OLMEDO, Jet Primary Care Physician [phone] [facility]counter [facility] Date[facility]s): 07/04/22 - 08/03/22 [facility] [address] [place], [place] [address] Allergies, Adverse Reactions, Alerts Substance Reaction [...] 3Admin Note: recv'd at PCP office in [place] 4Admin Note: afluria 5Admin Note: Flucelvax 6Admin Note: VIS Given 7Result Comment: [08/06/2017] verbal consent obtained, allergies reviewed. Has had flu shot in past with no issues. [facility] flu vaccine sheet given. 8Admin Note: #2 9Admin Note: [facility] Records 10Admin Note: VIS given 11Admin Note: VIS given 12Result Comment: wrong patient 13Admin Note: Dr. Suarez Records 14Admin Note: [facility] Records 15Admin Note: [facility] Records #2 16Admin Note: [facility] Records #1 17Admin Note: [facility] Records Medications buPROPion 150 mg/24 hours (XL) oral tablet, extended release See Instructions, TAKE 1 TABLET BY MOUTH EVERY MORNING, # 30 tablet, 2 Refills, 07/04/22 12:32:00 EST, [facility], 30, TAKE 1 TABLET BY MOUTH EVERY MORNING, 180, cm, 06/29/22 9:00:00EDT, Height Start Date: 07/04/22 Status: Ordered buPROPion 300 mg/24 hours (XL) oral tablet, extended release See Instructions, TAKE 1 TABLET BY MOUTH EVERY DAY, # 30 tablet, 2 Refills, 07/04/22 12:31:00 EST, [facility], 180, cm, 06/29/22 9:00:00 EDT, Height Start Date: 07/04/22 Status: Ordered busPIRone 5 mg oral tablet See Instructions, Take 1 tab qam po and 2 tabs qhs, # 180 tablet, Refills 2, Tot. Refills 2, 07/04/22 12:31:00 EST, Instructions Replace Required Details, Route to Pharmacy Electronically, [facility], 180, cm, 06/29/22 9:00:00 EDT, He... [...] 5 Refills, Maintenance, 05/09/22 11:02:00 EDT, Tablet, [facility], 1 tablet By Mouth Daily,x30 days,Instr:with food, 180, cm, 01/23/22 14:19:00 EDT, Height Start Date: 05/09/22 Stop Date: 11/05/22 Status: Ordered Nasacort Allergy 24HR 55 mcg/inh nasal spray See Instructions, 2 sprays Daily, # 1 each, 1 Refills, Maintenance, 09/25/16 12:12:25 Start Date: 09/25/16 Status: Ordered prazosin 1 mg oral capsule See Instructions, TAKE 4 CAPSULES BY MOUTH ONCE DAILY AT BEDTIME, # 120 capsule, Refills 2, Tot. Refills 2, 07/04/22 12:32:00 EST, Instructions Replace Required Details, Route to Pharmacy Electronically, [facility], 180, cm, 06/29/22... Start Date: 07/04/22 Status: Ordered Vistaril pamoate 25 mg oral capsule See Instructions, PRN as needed for anxiety, take 1-2 caps po bid prn for anxiety or insomnia. Max 4 caps/day, # 120 capsule, 2 Refills, Maintenance, 07/04/22 12:32:00 EST, [facility], 180, cm, 06/29/22 9:00:00 EDT, Height Start Date: 07/04/22 Status: Ordered zolpidem 10 mg oral tablet See Instructions, TAKE ONE TABLET BY MOUTH EVERY NIGHT AT BEDTIME NEEDED FOR SLEEP, # 30 tablet,2 Refills, Maintenance, 07/04/22 12:32:00 EST, [facility], 180, cm, 06/29/22 9:00:00 EDT, Height Start Date: 07/04/22 Status: Ordered zolpidem 10 mg oral tablet See Instructions, TAKE ONE TABLET BY MOUTH EVERY NIGHT AT BEDTIME NEEDED FOR SLEEP, # 30 tablet,2 Refills, Maintenance, 03/08/22 9:53:00 EDT, [facility], 180, cm, 01/23/22 14:19:00 EDT, Height Start Date: 03/08/22 Status: Ordered zolpidem 10 mg oral tablet See Instructions, TAKE ONE TABLET BY MOUTH EVERY NIGHT AT BEDTIME NEEDED FOR SLEEP, # 30 tablet,1 Refills, Maintenance, 12/08/21 6:04:00 EDT, [facility], 180, cm, 07/11/21 14:47:00 EST, Height Start Date: 12/08/21 Status: Ordered ZyrTEC 10 mg oral tablet 1 tablet = 10 mg, By Mouth, Daily, # 30 tablet, 11 Refills, Maintenance, 01/23/22 14:27:00 EDT, Tablet, [facility]/pharmacy #[id number], 180, cm, 01/23/22 14:19:00 EDT, Height [...] on: 09/29/13 Sex Patient Care team information Care Team Personnel Name: Jet Latif MD Position: [facility] Primary Care Physician Member Role: PCP Address: Address: [address] [place] [address]- Name: Kashif Chamberlain MD Position: [facility] Infectious Disease MD Member Role: Lifetime Consulting Physician Address: Address: [address] [facility] [place] [address]- Care Team Related Persons Name: ANNA IBARRA Address: home [address] [place] [address]
--- OUTSIDE RECORDS SUMMARY | 2023-01-16 23:41 | XMS_ITS | Continuity of Care Document ---
Author Name Unknown Organization [facility] Address [address] [place] [address]- Care Team Providers Care Timber Management Assistant Name Role Phone Salomon OLMEDO, Jet Primary Care Physician [facility] Date(s): 03/22/21 - 04/21/21 [facility] [address] [place] [address]- Allergies, Adverse Reactions, Alerts Substance Reaction Severity [...] 3Admin Note: recv'd at PCP office in [place] 4Admin Note: afluria 5Admin Note: Flucelvax 6Admin Note: VIS Given 7Result Comment: [08/06/2017] verbal consent obtained, allergies reviewed. Has had flu shot in past with no issues. [facility] flu vaccine sheet given. 8Admin Note: #2 9Admin Note: [facility] Records 10Admin Note: VIS given 11Admin Note: VIS given 12Result Comment: wrong patient 13Admin Note: Dr. Suarez Records 14Admin Note: [facility] Records 15Admin Note: [facility] Records #2 16Admin Note: [facility] Records #1 17Admin Note: [facility] Records Medications buPROPion 150 mg/24 hours (XL) oral tablet, extended release 1 tablet, By Mouth, Daily in AM, TAKE WITH 300 MG TAB FOR TOTAL OF 450 MG/DAY IN AM, # 30 tablet, 1Refills, Maintenance, 03/03/21 11:22:00 EDT, [facility], 30, 1 tablet By [...] Replace Required Details, Route to Pharmacy Electronically, [facility], Partial... Start Date: 02/02/21 Status: Ordered clindamycin 1% topical gel 1 application, Topically, 2 times a day, # 60 Gm, 0 Refills, Maintenance, 03/21/21 14:11:00 EDT, Gel, [facility]/pharmacy #[id number], Partial fill upon patient request if the prescription is for a schedule II opioid drug., 1 application Topically 2 times a day, 1... Start Date: 03/21/21 Status: Ordered clotrimazole 1% topical cream 1 application, Topically, 2 times a day, # 113 Gm, 1 Refills, Maintenance, 03/15/21 13:54:00 EDT, Cream, [facility]/pharmacy #[id number], Partial fill upon patient [...] 5 Refills, Maintenance, 03/27/21 10:44:00 EDT, Tablet, [facility], 1 tablet By Mouth Daily,x30 days,Instr:with food, 180, cm, 03/15/21 13:32:00 EDT, Height Start Date: 03/27/21 Stop Date: 09/23/21 Status: Ordered Nasacort Allergy 24HR 55 mcg/inh nasal spray See Instructions, 2 sprays Daily, # 1 each, 1 Refills, Maintenance, 09/25/16 12:12:25 Start Date: 09/25/16 Status: Ordered nystatin topical 448037 u/gm powder 1 application, Topically, 3 times a day, # 60 Gm, 1 Refills, Maintenance, 04/03/21 18:31:00 EDT, Powder, [facility], Partial fill upon patient request if [...] Replace Required Details, Route to Pharmacy Electronically, [facility], 180, cm, 01/10/21 14:13:00 EDT, Height Start Date: 03/03/21 Status: Ordered prazosin 1 mg oral capsule 3, capsule, By Mouth, Daily at bedtime, # 90 capsule, Refills 1, Tot. Refills 0, Maintenance, 01/04/21 15:13:00 EDT, Route to Pharmacy Electronically, [facility], 180, cm, 03/30/20 15:08:00 EDT, [...] capsule, 0 Refills, Maintenance, 06/24/20 17:18:00 EDT, [facility], 180, cm, 03/30/20 15:08:00 EDT, Height, 81.8, kg, 10/28/18 10:39:00 EST, Dry Weight Start Date: 06/24/20 Status: Ordered zolpidem 10 mg oral tablet 1 tablet, By Mouth, Daily at bedtime, PRN NEEDED FOR SLEEP, # 30 tablet, 1 Refills, Maintenance,03/03/21 11:22:00 EDT, [facility], 180, cm, 01/10/21 14:13:00 EDT, [...]
--- OUTSIDE RECORDS SUMMARY | 2023-01-16 23:41 | XMS_ITS | Continuity of Care Document ---
Author Name Unknown Organization [facility] Address [address] [place] [address]- Care Team Providers Care Hydraulic Miner Name Role Phone Not on Staff, PCP Primary Care Physician Unavail able [facility]): 01/26/21 - 02/25/21 [facility] [address] [place], [place] [address] Allergies, Adverse Reactions, Alerts Substance Reaction Severity [...] 3Admin Note: recv'd at PCP office in [place] 4Admin Note: afluria 5Admin Note: Flucelvax 6Admin Note: VIS Given 7Result Comment: [08/06/2017] verbal consent obtained, allergies reviewed. Has had flu shot in past with no issues. [facility] flu vaccine sheet given. 8Admin Note: #2 9Admin Note: [facility] Records 10Admin Note: VIS given 11Admin Note: VIS given 12Result Comment: wrong patient 13Admin Note: Dr. Suarez Records 14Admin Note: [facility] Records 15Admin Note: [facility] Records #2 16Admin Note: [facility] Records #1 17Admin Note: [facility] Records Medications [facility] intramuscular suspension 0.5 mL, Intramuscular, Once, # 0.5 mL, 0 Refills, Soft Stop, 07/10/16 12:13:00 Start Date: 07/10/16 Status: Ordered [facility] intramuscular suspension 0.5 mL, Intramuscular, Once, [...] IN AM, # 30 tablet, 1Refills, Maintenance, 01/04/21 15:13:00 EDT, [facility], 30, TAKE 1 TABLET BY MOUTH DAILY IN THE MORNING. TAKE WITH 300 MG TAB FOR TOT... Start Date: 01/04/21 Status: Ordered busPIRone 5 mg oral tablet See Instructions, Take 1 tab qhs po x 5 days then take 1 tab bid, # 60 tablet, Refills 2, Tot. Refills 2, Maintenance, 02/02/21 11:48:00 EDT, Instructions Replace Required Details, Route to Pharmacy Electronically, [facility], Partial... Start Date: 02/02/21 Status: Ordered docusate sodium 100 mg oral capsule 1 capsule = 100 mg, By Mouth, 2 times a day, Hold for loose stools Drink Plenty of Water, # 60 capsule, 3 Refills, Maintenance, 03/03/14 18:39:45, Capsule, 1 capsule By Mouth 2 times a day,x30 days,Instr:Hold for loose stools ; Drink Plenty of Water Start Date: 03/03/14 Stop Date: 07/01/14 Status: Ordered Flucelvax [id number] intramuscular suspension 0.5 mL, Intramuscular, Once, # 0.5 mL, 0 Refills, Soft Stop, 09/13/15 14:14:54 Start Date: 09/13/15 Status: Ordered Genvoya oral tablet 1 tablet, By Mouth, Daily, with food, # 30 tablet, 5 Refills, Maintenance, 09/13/20 10:33:00 EST, Tablet, [facility], 1 tablet By Mouth Daily,x30 [...] 01/04/21 15:13:00 EDT, Route to Pharmacy Electronically, [facility], 180, cm, 03/30/20 15:08:00 EDT, [...] capsule, 0 Refills, Maintenance, 06/24/20 17:18:00 EDT, [facility], 180, cm, 03/30/20 15:08:00 EDT, Height, 81.8, kg, 10/28/18 10:39:00 EST, Dry Weight Start Date: 06/24/20 Status: Ordered zolpidem 10 mg oral tablet See Instructions, TAKE ONE TABLET BY MOUTH EVERY NIGHT AT BEDTIME NEEDED FOR SLEEP, # 30 tablet,1 Refills, Maintenance, 01/04/21 15:13:00 EDT, [facility], 180, cm, 03/30/20 15:08:00 EDT, Height Start Date: 01/04/21 Status: Ordered zolpidem 10 mg oral tablet 1 tablet, By Mouth, Daily at bedtime, PRN NEEDED FOR SLEEP, # 30 tablet, 1 Refills, Maintenance,11/11/20 15:50:00 EDT, [facility], 180, cm, 03/30/20 15:08:00 EDT, Height Start Date: 11/11/20 Status: Ordered ZyrTEC 10 mg oral tablet [...]
--- OUTSIDE RECORDS SUMMARY | 2023-01-16 23:41 | XMS_ITS | Continuity of Care Document ---
Author Name Unknown Organization [facility] Address [address] [place] [address]- Care Team Providers Care Accordion Repairer Name Role Phone Jorge A OLMEDO, Susu Primary Care Physician Encounter [facility] Date(s): 08/22/20 - 10/30/20 [facility] [address] [place], [place] [address] Attending Physician: Salomon OLMEDO, Jet Allergies, Adverse Reactions, Alerts Substance Reaction Severity [...] 3Admin Note: recv'd at PCP office in [place] 4Admin Note: afluria 5Admin Note: Flucelvax 6Admin Note: VIS Given 7Result Comment: [08/06/2017] verbal consent obtained, allergies reviewed. Has had flu shot in past with no issues. [facility] flu vaccine sheet given. 8Admin Note: #2 9Admin Note: [facility] Records 10Admin Note: VIS given 11Admin Note: VIS given 12Result Comment: wrong patient 13Admin Note: Dr. Suarez Records 14Admin Note: [facility] Records 15Admin Note: [facility] Records #2 16Admin Note: [facility] Records #1 17Admin Note: [facility] Records Medications [facility] intramuscular [...] oral tablet, extended release 1 tablet = 150 mg, By Mouth, Daily in AM, take with 300 mg tab for total of 450 mg/day in am, # 90 tablet, 1 Refills, Maintenance, 07/07/20 16:56:00 EST, [facility], 1 tablet By Mouth Daily in AM,Instr:take with 300 mg tab for total o... Start Date: 07/07/20 Status: Ordered buPROPion 300 mg/24 hours (XL) oral tablet, extended release See Instructions, TAKE ONE TABLET BY MOUTH ONCE DAILY, # 90 tablet, 1 Refills, Maintenance, [facility], 180, cm, 03/30/20 15:08:00 EDT, Height, 81.8, kg, 10/28/18 10:39:00 EST, Dry Weight Start Date: 05/10/20 Status: Ordered docusate sodium 100 mg oral capsule 1 capsule = 100 mg, By Mouth, 2 times a day, Hold for loose stools Drink Plenty of Water, # 60 capsule, 3 Refills, Maintenance, 03/03/14 18:39:45, Capsule, 1 capsule By Mouth 2 times a day,x30 days,Instr:Hold for loose stools ; Drink Plenty of Water Start Date: 03/03/14 Stop Date: 07/01/14 Status: Ordered Flucelvax [id number] intramuscular suspension 0.5 mL, Intramuscular, Once, # 0.5 mL, 0 Refills, Soft Stop, 09/13/15 14:14:54 Start Date: 09/13/15 Status: Ordered Genvoya oral tablet 1 tablet, By Mouth, Daily, with food, # 30 tablet, 5 Refills, Maintenance, 09/13/20 10:33:00 EST, Tablet, [facility], 1 tablet By Mouth Daily,x30 [...] Status: Ordered prazosin 1 mg oral capsule 3 mg, 3, capsule, By Mouth, Daily at bedtime, please cancel any other prazosin rx on file, # 270 capsule, Refills 1, Tot. Refills 1, 07/07/20 16:41:00 EST, Route to Pharmacy Electronically, [facility], please cancel any other prazosin... Start Date: 07/07/20 Status: Ordered Prevnar 13 intramuscular suspension 0.5 [...] 0 Refills, Maintenance, 06/24/20 17:18:00 EDT, [facility], 180, cm, 03/30/20 15:08:00 EDT, Height, 81.8, kg, 10/28/18 10:39:00 EST, Dry Weight Start Date: 06/24/20 Status: Ordered zolpidem 10 mg oral tablet See Instructions, TAKE ONE TABLET BY MOUTH AT BEDTIME NEEDED FOR SLEEP, # 30 tablet, 0 Refills, Maintenance, 10/17/20 17:41:00 EST, [facility], 180, cm, 03/30/20 15:08:00 EDT, Height, 81.8, kg, 10/28/18 10:39:00 EST, Dry Weight Start Date: 2/22/21 Status: Ordered ZyrTEC 10 mg oral tablet [...]
--- OUTSIDE RECORDS SUMMARY | 2023-01-16 23:41 | XMS_ITS | Continuity of Care Document ---
Author Name Unknown Organization [facility] Address [address] [place] [address]- Care Team Providers Care Food Consultant Name Role Phone Salomon OLMEDO, Jet Primary Care Physician [phone] Encounter [facility] Date(s): 04/03/21 - 05/03/21 [facility] [address] [place] [address]- Allergies, Adverse Reactions, Alerts Substance Reaction Severity [...] 3Admin Note: recv'd at PCP office in [place] 4Admin Note: afluria 5Admin Note: Flucelvax 6Admin Note: VIS Given 7Result Comment: [08/06/2017] verbal consent obtained, allergies reviewed. Has had flu shot in past with no issues. [facility] flu vaccine sheet given. 8Admin Note: #2 9Admin Note: [facility] Records 10Admin Note: VIS given 11Admin Note: VIS given 12Result Comment: wrong patient 13Admin Note: Dr. Suarez Records 14Admin Note: [facility] Records 15Admin Note: [facility] Records #2 16Admin Note: [facility] Records #1 17Admin Note: [facility] Records Medications buPROPion 150 mg/24 hours (XL) oral tablet, extended release 1 tablet, By Mouth, Daily in AM, # 30 tablet, 1 Refills, [facility], 30, TAKE ONE TABLET BY MOUTH EVERY MORNING WITH 300 MG TABLET FOR A TOTAL OF 450 MG PER DAY IN THE MORNING, 180, cm, 03/15/21 13:32:00 EDT, Height Start Date: 05/02/21 Status: Ordered buPROPion 300 mg/24 hours (XL) oral tablet, extended release 1 tablet, By Mouth, Daily, # 30 tablet, 1 Refills, [facility], 180, cm, 03/15/21 13:32:00 EDT, Height Start Date: 05/02/21 Status: Ordered busPIRone 5 mg oral tablet See Instructions, Take 1 tab qhs po x 5 days then take 1 tab bid, # 60 tablet, Refills 2, Tot. Refills 2, Maintenance, 02/02/21 11:48:00 EDT, Instructions Replace Required Details, Route to Pharmacy Electronically, [facility], Partial... Start Date: 02/02/21 Status: Ordered clindamycin 1% topical gel 1 application, Topically, 2 times a day, # 60 Gm, 0 Refills, Maintenance, 03/21/21 14:11:00 EDT, Gel, [facility]/pharmacy #[id number], Partial fill upon patient request if the prescription is for a schedule II opioid drug., 1 application Topically 2 times a day, 1... Start Date: 03/21/21 Status: Ordered clotrimazole 1% topical cream 1 application, Topically, 2 times a day, # 113 Gm, 1 Refills, Maintenance, 03/15/21 13:54:00 EDT, Cream, [facility]/pharmacy #[id number], Partial fill upon patient [...] 5 Refills, Maintenance, 03/27/21 10:44:00 EDT, Tablet, [facility], 1 tablet By Mouth Daily,x30 days,Instr:with food, 180, cm, 03/15/21 13:32:00 EDT, Height Start Date: 03/27/21 Stop Date: 09/23/21 Status: Ordered Nasacort Allergy 24HR 55 mcg/inh nasal spray See Instructions, 2 sprays Daily, # 1 each, 1 Refills, Maintenance, 09/25/16 12:12:25 Start Date: 09/25/16 Status: Ordered nystatin topical 585441 u/gm powder 1 application, Topically, 3 times a day, # 60 Gm, 1 Refills, Maintenance, 04/03/21 18:31:00 EDT, Powder, [facility], Partial fill upon patient request [...] capsule, Refills 1, Route to Pharmacy Electronically, [facility], 180, cm, 03/15/21 13:32:00 EDT, Height Start Date: 05/02/21 Status: Ordered Valium 5 mg oral tablet [...] capsule, 0 Refills, Maintenance, 06/24/20 17:18:00 EDT, [facility], 180, cm, 03/30/20 15:08:00 EDT, Height, 81.8, kg, 10/28/18 10:39:00 EST, Dry Weight Start Date: 06/24/20 Status: Ordered zolpidem 10 mg oral tablet 1 tablet, By Mouth, Daily at bedtime, PRN NEEDED FOR SLEEP, # 30 tablet, 1 Refills, Maintenance,05/02/21 11:41:00 EDT, [facility], 180, cm, 03/15/21 13:32:00 EDT, Height Start Date: 05/02/21 Status: Ordered ZyrTEC 10 mg oral tablet [...]
--- OUTSIDE RECORDS SUMMARY | 2023-01-16 23:41 | XMS_ITS | Continuity of Care Document ---
Author Name Unknown Organization [facility] Address [address] [place] [address]- Care Team Providers Care Site Promotion Agent Name Role Phone Salomon OLMEDO, Jet Primary Care Physician [facility]counter [facility] Date(s): 11/29/22 - 12/29/22 [facility] [address] [place] [id number]- Allergies, Adverse Reactions, Alerts Substance Reaction Severity Status Atripla hives Active Immunizations Given and Recorded Vaccine Date Status Refusal Reason influenza virus vaccine, inactivated 06/29/22 Hunter rded influenza virus vaccine, inactivated 1 05/30/18 Gi lamar influenza virus vaccine, inactivated 2 07/10/16 Gi lamar influenza virus vaccine, inactivated 3 09/13/15 Gi lamar influenza virus vaccine, inactivated 07/15/12 Give n influenza virus vaccine, inactivated 4 06/06/10 Gi lamar [id number] 12y+ bivalent booster vax 06/29/22 Recorded SARS-CoV-2 (COVID-19) mRNA-1273 vaccine 10/04/21 R ecorded SARS-CoV-2 (COVID-19) mRNA-1273 vaccine 12/05/20 R ecorded SARS-CoV-2 (COVID-19) mRNA-1273 vaccine 11/07/20 R ecorded Meningococcal Conjugate Vaccine 5 07/01/18 Given Meningococcal Conjugate Vaccine 6 01/01/17 Given Afluria (oldterm) 7 08/06/17 Given Boostrix (Tdap) [...] (oldterm) 17 02/05/07 G iven 1Admin Note: recv'd at PCP office in [place] 2Admin Note: afluria 3Admin Note: Flucelvax 4Admin Note: VIS Given 5Admin Note: MENVEO #2 dose VIS GIVEN 6Admin Note: MENVEO 7Result Comment: [08/06/2017] verbal consent obtained, allergies reviewed. Has had flu shot in past with no issues. [facility] flu vaccine sheet given. 8Admin Note: #2 9Admin Note: [facility] Records 10Admin Note: VIS given 11Admin Note: VIS given 12Result Comment: wrong patient 13Admin Note: Dr. Suarez Records 14Admin Note: [facility] Records 15Admin Note: [facility] Records #2 16Admin Note: [facility] Records #1 17Admin Note: [facility] Records Medications buPROPion 150 mg/24 hours (XL) oral tablet, extended release 1 tablet, By Mouth, Daily in AM, # 30 tablet, 5 Refills, Maintenance, 12/13/22 14:06:00 EDT, [facility], 30, TAKE ONE TABLET BY MOUTH EVERY MORNING, 180, cm, 08/21/22 11:37:00 EST, Height Start Date: 12/13/22 Status: Ordered buPROPion 300 mg/24 hours (XL) oral tablet, extended release 1 tablet, By Mouth, Daily, # 30 tablet, 5 Refills, Maintenance, 12/13/22 14:06:00 EDT, [facility], 180, cm, 08/21/22 11:37:00 EST, Height Start Date: 12/13/22 Status: Ordered busPIRone 5 mg oral tablet See Instructions, Take 1 tab qam po and 2 tabs qhs, # 180 tablet, Refills 2, Tot. Refills 2, 07/04/22 12:31:00 EST, Instructions Replace Required Details, Route to Pharmacy Electronically, [facility], 180, cm, 06/29/22 9:00:00 EDT, He... [...] food, # 30 tablet, 5 Refills, Maintenance, 11/15/22 15:13:00 EDT, Tablet, [facility], 1 tablet By Mouth Daily,x30 days,Instr:with food, 180, cm, 08/21/22 11:37:00 EST, Height Start Date: 11/15/22 Stop Date: 05/14/23 Status: Ordered hydrOXYzine pamoate 25 mg oral capsule 1-2 CAPSULES, By Mouth, 2 times a day, PRN NEEDED FOR ANXIETY OR INSOMNIA, MAX OF 4, DAILY., # 120 capsule, 2 Refills, Maintenance, 10/16/22 13:28:00 EST, [facility], 180, cm, 08/21/22 11:37:00 EST, Height Start Date: 10/16/22 Status: Ordered Nasacort Allergy 24HR 55 mcg/inh nasal spray See Instructions, 2 sprays Daily, # 1 each, 1 Refills, Maintenance, 09/25/16 12:12:25 Start Date: 09/25/16 Status: Ordered prazosin 1 mg oral capsule 4, capsule, By Mouth, Daily at bedtime, # 120 capsule, Refills 2, Maintenance, 09/21/22 10:35:00 EST, Route to Pharmacy Electronically, [facility], 180, cm, 08/21/22 11:37:00 EST, Height Start Date: 09/21/22 Status: Ordered zolpidem 10 mg oral tablet See Instructions, TAKE ONE TABLET BY MOUTH EVERY NIGHT AT BEDTIME NEEDED FOR SLEEP, # 30 tablet,0 Refills, Maintenance, 11/27/22 12:33:00 EDT, [facility], 180, cm, 08/21/22 11:37:00 EST, Height Start Date: 11/27/22 Status: Ordered zolpidem 10 mg oral tablet See Instructions, TAKE ONE TABLET BY MOUTH EVERY NIGHT AT BEDTIME NEEDED FOR SLEEP, # 30 tablet,2 Refills, Maintenance, 03/08/22 9:53:00 EDT, [facility], 180, cm, 01/23/22 14:19:00 EDT, Height Start Date: 03/08/22 Status: Ordered zolpidem 10 mg oral tablet See Instructions, TAKE ONE TABLET BY MOUTH EVERY NIGHT AT BEDTIME NEEDED FOR SLEEP, # 30 tablet,0 Refills, Maintenance, 09/24/22 17:46:00 EST, [facility], 180, cm, 08/21/22 11:37:00 EST, Height Start Date: 09/24/22 Status: Ordered ZyrTEC 10 mg oral tablet 1 tablet = 10 mg, By Mouth, Daily, # 30 tablet, 11 Refills, Maintenance, 01/23/22 14:27:00 EDT, Tablet, [facility]/pharmacy #[id number], 180, cm, 01/23/22 14:19:00 EDT, Height [...] Team Personnel Name: Jet Latif MD Position: [facility] Primary Care Physician Member Role: PCP Address: Address: [address] [place] [address]- Name: Kashif Chamberlain MD Position: [facility] Infectious Disease MD Member Role: Lifetime Consulting Physician Address: Address: [address] [facility] [place] [address]- Care Team Related Persons Name: ANNA IBARRA Address: home [address] [place] [id number]
--- OUTSIDE RECORDS SUMMARY | 2023-01-16 23:41 | XMS_ITS | Continuity of Care Document ---
Author Name Unknown Organization [facility] Address [address] [place] [address]- Care Team Providers Care Furniture Builder Name Role Phone Jet Latif MD Primary Care Physician [facility] Date(s): 08/09/21 - 09/10/21 [facility] [address] [place], [place] [address] Attending Physician: Jet Latif MD Allergies, Adverse [...] 3Admin Note: recv'd at PCP office in [place] 4Admin Note: afluria 5Admin Note: Flucelvax 6Admin Note: VIS Given 7Result Comment: [08/06/2017] verbal consent obtained, allergies reviewed. Has had flu shot in past with no issues. [facility] flu vaccine sheet given. 8Admin Note: #2 9Admin Note: [facility] Records 10Admin Note: VIS given 11Admin Note: VIS given 12Result Comment: wrong patient 13Admin Note: Dr. Suarez Records 14Admin Note: [facility] Records 15Admin Note: [facility] Records #2 16Admin Note: [facility] Records #1 17Admin Note: [facility] Records Medications buPROPion 150 mg/24 hours (XL) oral tablet, extended release 1 tablet, By Mouth, Daily in AM, # 30 tablet, 1 Refills, 06/28/21 8:50:00 EDT, [facility]/pharmacy #1, 30, 1 tablet By Mouth Daily in AM, 180, cm, 03/15/21 13:32:00 EDT, Height Start Date: 06/28/21 Status: Ordered buPROPion 150 mg/24 hours (XL) oral tablet, extended release See Instructions, TAKE ONE TABLET BY MOUTH EVERY MORNING WITH 300 MG TABLET FOR A TOTAL OF 450 MG PER DAY IN THE MORNING, # 30 tablet, 5 Refills, [facility], 30, TAKE ONE TABLET BY MOUTH EVERY MORNING WITH 300 MG TABLET FOR A TOTAL OF... Start Date: 08/22/21 Status: Ordered buPROPion 300 mg/24 hours (XL) oral tablet, extended release 1 tablet, By Mouth, Daily, # 30 tablet, 1 Refills, 06/28/21 8:50:00 EDT, [facility], cm, 03/15/21 13:32:00 EDT, Height Start Date: 06/28/21 Status: Ordered buPROPion 300 mg/24 hours (XL) oral tablet, extended release See Instructions, TAKE ONE TABLET BY MOUTH ONCE DAILY, # 30 tablet, 5 Refills, [facility], 180, cm, 07/11/21 14:47:00 EST, Height Start Date: 08/22/21 Status: Ordered busPIRone 5 mg oral tablet 5 mg, 1, tablet, By Mouth, 2 times a day, # 60 tablet, Refills 2, Tot. Refills 2, Maintenance, 08/22/21 12:35:00 EST, [facility], cm, 07/11/21 14:47:00 EST, Height Start Date: 08/22/21 Status: Ordered clindamycin 1% topical gel 1 application, Topically, 2 times a day, # 60 Gm, 0 Refills, Maintenance, 03/21/21 14:11:00 EDT, Gel, [facility]/pharmacy #[id number], Partial fill upon patient request if the prescription is for a schedule II opioid drug., 1 application Topically 2 times a day, 1... Start Date: 03/21/21 Status: Ordered clotrimazole 1% topical cream 1 application, Topically, 2 times a day, # 113 Gm, 1 Refills, Maintenance, 03/15/21 13:54:00 EDT, Cream, [facility]/pharmacy #[id number], Partial fill upon patient request [...] 5 Refills, Maintenance, 03/27/21 10:44:00 EDT, Tablet, [facility], 1 tablet By Mouth Daily,x30 days,Instr:with food, 180, cm, 03/15/21 13:32:00 EDT, Height Start Date: 03/27/21 Stop Date: 09/23/21 Status: Ordered Nasacort Allergy 24HR 55 mcg/inh nasal spray See Instructions, 2 sprays Daily, # 1 each, 1 Refills, Maintenance, 09/25/16 12:12:25 Start Date: 09/25/16 Status: Ordered nystatin topical 325417 u/gm powder 1 application, Topically, 3 times a day, # 60 Gm, 1 Refills, Maintenance, 06/06/21 14:33:00 EDT, Powder, [facility]/pharmacy #[id number], Partial fill upon patient request if the prescription is for a schedule IIopioid drug., 1 application Topically 3 times a day... Start Date: 06/06/21 Status: Ordered prazosin 1 mg oral capsule 3, capsule, By Mouth, Daily at bedtime, # 90 capsule, Refills 11, Tot. Refills 11, 08/09/21 11:17:00 EST, Route to Pharmacy Electronically, [facility]/pharmacy #[id number], 180, cm, 07/11/21 14:47:00 EST, Height [...] 30 tablet,2 Refills, Maintenance, 08/22/21 12:10:00 EST, [facility], 180, cm, 07/11/21 14:47:00 [...]
--- OUTSIDE RECORDS SUMMARY | 2023-01-16 23:41 | XMS_ITS | Continuity of Care Document ---
Author Name Unknown Organization [facility] Address [address] [place] [address]- Care Team Providers Care Certified Maintenance Welder Name Role Phone Salomon OLMEDO, Jet Primary Care Physician [phone] [facility]): 04/04/21 - 05/04/21 [facility] [address] [place], [place] [address] Allergies, Adverse [...] 3Admin Note: recv'd at PCP office in [place] 4Admin Note: afluria 5Admin Note: Flucelvax 6Admin Note: VIS Given 7Result Comment: [08/06/2017] verbal consent obtained, allergies reviewed. Has had flu shot in past with no issues. [facility] flu vaccine sheet given. 8Admin Note: #2 9Admin Note: [facility] Records 10Admin Note: VIS given 11Admin Note: VIS given 12Result Comment: wrong patient 13Admin Note: Dr. Suarez Records 14Admin Note: [facility] Records 15Admin Note: [facility] Records #2 16Admin Note: [facility] Records #1 17Admin Note: [facility] Records Medications buPROPion 150 mg/24 hours (XL) oral tablet, extended release 1 tablet, By Mouth, Daily in AM, # 30 tablet, 1 Refills, [facility], 30, TAKE ONE TABLET BY MOUTH EVERY MORNING WITH 300 MG TABLET FOR A TOTAL OF 450 MG PER DAY IN THE MORNING, 180, cm, 03/15/21 13:32:00 EDT, Height Start Date: 05/02/21 Status: Ordered buPROPion 300 mg/24 hours (XL) oral tablet, extended release 1 tablet, By Mouth, Daily, # 30 tablet, 1 Refills, [facility], 180, cm, 03/15/21 13:32:00 EDT, Height Start Date: 05/02/21 Status: Ordered busPIRone 5 mg oral tablet See Instructions, Take 1 tab qhs po x 5 days then take 1 tab bid, # 60 tablet, Refills 2, Tot. Refills 2, Maintenance, 02/02/21 11:48:00 EDT, Instructions Replace Required Details, Route to Pharmacy Electronically, [facility], Partial... Start Date: 02/02/21 Status: Ordered clindamycin 1% topical gel 1 application, Topically, 2 times a day, # 60 Gm, 0 Refills, Maintenance, 03/21/21 14:11:00 EDT, Gel, [facility]/pharmacy #[id number], Partial fill upon patient request if the prescription is for a schedule II opioid drug., 1 application Topically 2 times a day, 1... Start Date: 03/21/21 Status: Ordered clotrimazole 1% topical cream 1 application, Topically, 2 times a day, # 113 Gm, 1 Refills, Maintenance, 03/15/21 13:54:00 EDT, Cream, [facility]/pharmacy #[id number], Partial fill upon patient request [...] 5 Refills, Maintenance, 03/27/21 10:44:00 EDT, Tablet, [facility], 1 tablet By Mouth Daily,x30 days,Instr:with food, 180, cm, 03/15/21 13:32:00 EDT, Height Start Date: 03/27/21 Stop Date: 09/23/21 Status: Ordered Nasacort Allergy 24HR 55 mcg/inh nasal spray See Instructions, 2 sprays Daily, # 1 each, 1 Refills, Maintenance, 09/25/16 12:12:25 Start Date: 09/25/16 Status: Ordered nystatin topical 892652 u/gm powder 1 application, Topically, 3 times a day, # 60 Gm, 1 Refills, Maintenance, 04/03/21 18:31:00 EDT, Powder, [facility], Partial fill upon patient request [...] capsule, Refills 1, Route to Pharmacy Electronically, [facility], 180, cm, 03/15/21 13:32:00 EDT, [...] capsule, 0 Refills, Maintenance, 06/24/20 17:18:00 EDT, [facility], 180, cm, 03/30/20 15:08:00 EDT, Height, 81.8, kg, 10/28/18 10:39:00 EST, Dry Weight Start Date: 06/24/20 Status: Ordered zolpidem 10 mg oral tablet 1 tablet, By Mouth, Daily at bedtime, PRN NEEDED FOR SLEEP, # 30 tablet, 1 Refills, Maintenance,05/02/21 11:41:00 EDT, [facility], 180, cm, 03/15/21 13:32:00 EDT, Height [...]
--- OUTSIDE RECORDS SUMMARY | 2023-01-16 23:41 | XMS_ITS | Continuity of Care Document ---
Author Name Unknown Organization [facility] Address [address] [place] [address]- Care Team Providers Care Search Consultant Name Role Phone Jet Latif MD Primary Care Physician Encounter [facility] Date(s): 03/15/21 - 03/22/21 [facility] [address] [place] [address]- Encounter Diagnosis Candidal intertrigo(Discharge Diagnosis) - 03/15/21 HIV positive(Discharge Diagnosis) - 03/15/21 Anxiety(Discharge Diagnosis) - 03/15/21 Attending Physician: Jet Latif MD Allergies, Adverse [...] 3Admin Note: recv'd at PCP office in [place] 4Admin Note: afluria 5Admin Note: Flucelvax 6Admin Note: VIS Given 7Result Comment: [08/06/2017] verbal consent obtained, allergies reviewed. Has had flu shot in past with no issues. [facility] flu vaccine sheet given. 8Admin Note: #2 9Admin Note: [facility] Records 10Admin Note: VIS given 11Admin Note: VIS given 12Result Comment: wrong patient 13Admin Note: Dr. Suarez Records 14Admin Note: [facility] Records 15Admin Note: [facility] Records #2 16Admin Note: [facility] Records #1 17Admin Note: [facility] Records Medications [facility] intramuscular suspension 0.5 mL, Intramuscular, Once, # 0.5 mL, 0 Refills, Soft Stop, 07/10/16 12:13:00 Start Date: 07/10/16 Status: [facility]5 [facility], Intramuscular, Once, # [...] 30 tablet, 1Refills, Maintenance, 03/03/21 11:22:00 EDT, [facility], 30, 1 tablet By Mouth Daily in AM,Instr:TAKE WITH 300 MG TAB FOR TOTAL OF 450... Start Date: 03/03/21 Status: Ordered busPIRone 5 mg oral tablet See Instructions, Take 1 tab qhs po x 5 days then take 1 tab bid, # 60 tablet, Refills 2, Tot. Refills 2, Maintenance, 02/02/21 11:48:00 EDT, Instructions Replace Required Details, Route to Pharmacy Electronically, [facility], Partial... Start Date: 02/02/21 Status: Ordered clindamycin 1% topical gel 1 application, Topically, 2 times a day, # 60 Gm, 0 Refills, Maintenance, 03/21/21 14:11:00 EDT, Gel, [facility]/pharmacy #[id number], Partial fill upon patient request if the prescription is for a schedule II opioid drug., 1 application Topically 2 times a day, 1... Start Date: 03/21/21 Status: Ordered clotrimazole 1% topical cream 1 application, Topically, 2 times a day, # 113 Gm, 1 Refills, Maintenance, 03/15/21 13:54:00 EDT, Cream, [facility]/pharmacy #[id number], Partial fill upon patient [...] 03/03/14 Stop Date: 07/01/14 Status: Ordered Flucelvax [id number] intramuscular suspension 0.5 mL, Intramuscular, Once, # 0.5 mL, 0 Refills, Soft Stop, 09/13/15 14:14:54 Start Date: 09/13/15 Status: Ordered Genvoya oral tablet 1 tablet, By Mouth, Daily, with food, # 30 tablet, 5 Refills, Maintenance, 09/13/20 10:33:00 EST, Tablet, [facility], 1 tablet By Mouth Daily,x30 [...] 10:28:00 EST Start Date: 07/01/18 Status: Ordered mupirocin 2% topical ointment 1 application, Topically, 2 times a day, for 14 days, apply to affected skin, # 30 Gm, 0 Refills, Acute 04/05/21 8:40:00 EDT, 03/22/21 8:40:00 EDT, Ointment, [facility]/pharmacy #[id number], Partial fill upon patient request if the prescription is for a schedule I... Start Date: 03/22/21 Stop Date: 04/05/21 Status: Ordered Nasacort Allergy 24HR 55 mcg/inh [...] Replace Required Details, Route to Pharmacy Electronically, [facility], 180, cm, 01/10/21 14:13:00 EDT, Height Start Date: 03/03/21 Status: Ordered prazosin 1 mg oral capsule 3, capsule, By Mouth, Daily at bedtime, # 90 capsule, Refills 1, Tot. Refills 0, Maintenance, 01/04/21 15:13:00 EDT, Route to Pharmacy Electronically, [facility], 180, cm, 03/30/20 15:08:00 EDT, [...] capsule, 0 Refills, Maintenance, 06/24/20 17:18:00 EDT, [facility], 180, cm, 03/30/20 15:08:00 EDT, Height, 81.8, kg, 10/28/18 10:39:00 EST, Dry Weight Start Date: 06/24/20 Status: Ordered zolpidem 10 mg oral tablet 1 tablet, By Mouth, Daily at bedtime, PRN NEEDED FOR SLEEP, # 30 tablet, 1 Refills, Maintenance,03/03/21 11:22:00 EDT, [facility], 180, cm, 01/10/21 14:13:00 EDT, Height [...] Effective Dates Health Status Clinical Service Informant Candidal intertrigo Discharge Diagnosis 03/15/21 HIV positive Discharge Diagnosis 03/15/21 Anxiety Discharge Diagnosis 03/15/21 Procedures Procedure Date Related Diagnosis Body Site Status Colorectal surgery Comple jackie Vital Signs Most recent to oldest [Reference Range]: 1 Height 180 cm (03/15/21 1:32 PM) Weight 79.2 kg (03/15/21 1:32 PM) Oxygen Saturation [94-100 %] 98 % (03/15/21 1:32 PM) Pulse Rate [55-90 bpm] 74 bpm (03/15/21 1:32 PM) Body Mass Index [18.5-24.99] 24.44 (03/15/21 1:32 PM) Blood Pressure [90-138/55-84 mm Hg] 114/ 74mm Hg (03/15/21 1:32 PM) Temperature [96.8-100.4 DegF] 98.2 DegF (03/15/21 1:32 PM) Blood pressure sites Arm, right (03/15/21 1:32 PM) Temperature Route Temporal (03/15/21 1:32 PM) Social History Social History Type Response Smoking Status Former smoker; Tobac co user in household: No entered on: 09/29/13 Sex
--- OUTSIDE RECORDS SUMMARY | 2023-01-16 23:41 | XMS_ITS | Continuity of Care Document ---
Author Name Unknown Organization [facility] Address [address] [place] [address]- Care Team Providers Care Test Driver Name Role Phone Susu Jules MD Primary Care Physician Encounter [facility] [place] Date(s): 03/04/20 - 03/11/20 [facility] [address] [place] [address]- [place] Encounter Diagnosis Dysuria(Discharge Diagnosis) - 03/04/20 Attending Physician: Neel Tom MD Referring Physician: Susu Jules MD Allergies, Adverse Reactions, Alerts Substance Reaction [...] 3Admin Note: recv'd at PCP office in [place] 4Admin Note: afluria 5Admin Note: Flucelvax 6Admin Note: VIS Given 7Result Comment: [08/06/2017] verbal consent obtained, allergies reviewed. Has had flu shot in past with no issues. [facility] flu vaccine sheet given. 8Admin Note: #2 9Admin Note: [facility] Records 10Admin Note: VIS given 11Admin Note: VIS given 12Result Comment: wrong patient 13Admin Note: Dr. Suarez Records 14Admin Note: [facility] Records 15Admin Note: [facility] Records #2 16Admin Note: [facility] Records #1 17Admin Note: [facility] Records Medications [facility] intramuscular suspension 0.5 mL, Intramuscular, Once, # 0.5 mL, 0 Refills, Soft Stop, 07/10/16 12:13:00 Start Date: 07/10/16 Status: Ordered [facility] intramuscular suspension 0.5 mL, Intramuscular, Once, # 0.5 mL, 0 Refills, Soft Stop, 08/06/17 13:28:00 Start Date: 08/06/17 Status: Ordered Ambien 10 mg oral tablet 1 tablet = 10 mg, By Mouth, Daily at bedtime, PRN as needed for sleep, mattress filling machine tender reviewed, # 30 tablet, 2Refills, Maintenance, 02/18/20 10:49:00 EDT, Tablet, [facility], 180, cm, :51:00 EDT, [...] 90 tablet, 1 Refills, Maintenance, 11/11/19 15:45:00EDT, [facility], 180, cm, 06/24/19 9:51:00 [...] 03/03/14 Stop Date: 07/01/14 Status: Ordered Flucelvax [id number] intramuscular suspension 0.5 mL, Intramuscular, Once, # 0.5 mL, 0 Refills, Soft Stop, 09/13/15 14:14:54 Start Date: 09/13/15 Status: Ordered Genvoya oral tablet 1 tablet, By Mouth, Daily, with food, # 30 tablet, 5 Refills, Maintenance, 01/04/20 16:38:00 EDT, Tablet, [facility], 1 tablet By Mouth Daily,x30 [...] Diagnosis Diagnosis Type Effective Dates Health Status [facility] Service Informant Dysuria Discharge Diagnosis 03/04/20 Vital Signs Most recent to oldest [Reference Range]: 1 Height 180 cm (03/04/20 1:21 PM) Oxygen Saturation [94-100 %] 100 % (03/04/20 1:21 PM) Pulse Rate [55-90 bpm] 81 bpm (03/04/20 1:21 PM) Blood Pressure [90-138/55-84 mm Hg] 137/ 96mm Hg (03/04/20 1:21 PM) Respiratory Rate [16-30 br/min] 19 br/mi n (03/04/20 1:21 PM) Temperature [96.8-100.4 DegF] 98.6 DegF (03/04/20 1:21 PM) Mode of Delivery (Oxygen) Room air (03/04/20 1:21 PM) Blood pressure sites Arm, left (03/04/20 1:21 PM) Temperature Route Temporal (03/04/20 1:21 PM) Social History Social History Type Response Smoking Status Former smoker; Tobac co user in household: No entered on: 09/29/13 Sex
--- OUTSIDE RECORDS SUMMARY | 2023-01-16 23:41 | XMS_ITS | Continuity of Care Document ---
Author Name Unknown Organization [facility] Address Unknown Care Team Providers Care Retirement Benefits Specialist Name Role Phone Salomon OLMEDO, Jet Primary Care Physician Encounter [facility] Date(s): 03/13/21 - 04/12/21 [facility] Attending Physician: Karen Bowser Admitting Physician: AdmtrKaren Referring Physician: AdmtrKaren Allergies, Adverse Reactions, Alerts [...] 3Admin Note: recv'd at PCP office in [place] 4Admin Note: afluria 5Admin Note: Flucelvax 6Admin Note: VIS Given 7Result Comment: [08/06/2017] verbal consent obtained, allergies reviewed. Has had flu shot in past with no issues. [facility] flu vaccine sheet given. 8Admin Note: #2 9Admin Note: [facility] Records 10Admin Note: VIS given 11Admin Note: VIS given 12Result Comment: wrong patient 13Admin Note: Dr. Suarez Records 14Admin Note: [facility] Records 15Admin Note: [facility] Records #2 16Admin Note: [facility] Records #1 17Admin Note: [facility] Records Medications buPROPion 150 mg/24 hours (XL) oral tablet, extended release 1 tablet, By Mouth, Daily in AM, TAKE WITH 300 MG TAB FOR TOTAL OF 450 MG/DAY IN AM, # 30 tablet, 1Refills, Maintenance, 03/03/21 11:22:00 EDT, [facility], 30, 1 tablet By [...] Replace Required Details, Route to Pharmacy Electronically, [facility], Partial... Start Date: 02/02/21 Status: Ordered clindamycin 1% topical gel 1 application, Topically, 2 times a day, # 60 Gm, 0 Refills, Maintenance, 03/21/21 14:11:00 EDT, [id number] Partial fill upon patient request if the prescription is for a schedule II opioid drug., 1 application Topically 2 times a day, 1... Start Date: 03/21/21 Status: Ordered clotrimazole 1% topical cream 1 application, Topically, 2 times a day, # 113 Gm, 1 Refills, Maintenance, 03/15/21 13:54:00 EDT, Cream, [facility]/pharmacy #[id number], Partial fill upon patient [...] 5 Refills, Maintenance, 03/27/21 10:44:00 EDT, Tablet, [facility], 1 tablet By Mouth Daily,x30 days,Instr:with food, 180, cm, 03/15/21 13:32:00 EDT, Height Start Date: 03/27/21 Stop Date: 09/23/21 Status: Ordered Nasacort Allergy 24HR 55 mcg/inh nasal spray See Instructions, 2 sprays Daily, # 1 each, 1 Refills, Maintenance, 09/25/16 12:12:25 Start Date: 09/25/16 Status: Ordered nystatin topical 080734 u/gm powder 1 application, Topically, 3 times a day, # 60 Gm, 1 Refills, Maintenance, 04/03/21 18:31:00 EDT, Powder, [facility], Partial fill upon patient request [...] Required Details, Route to Pharmacy Electronically, [facility], 180, cm, 01/10/21 14:13:00 EDT, Height Start Date: 03/03/21 Status: Ordered prazosin 1 mg oral capsule 3, capsule, By Mouth, Daily at bedtime, # 90 capsule, Refills 1, Tot. Refills 0, Maintenance, 01/04/21 15:13:00 EDT, Route to Pharmacy Electronically, [facility], 180, cm, 03/30/20 15:08:00 EDT, [...] capsule, 0 Refills, Maintenance, 06/24/20 17:18:00 EDT, [facility], 180, cm, 03/30/20 15:08:00 EDT, Height, 81.8, kg, 10/28/18 10:39:00 EST, Dry Weight Start Date: 06/24/20 Status: Ordered zolpidem 10 mg oral tablet 1 tablet, By Mouth, Daily at bedtime, PRN NEEDED FOR SLEEP, # 30 tablet, 1 Refills, Maintenance,03/03/21 11:22:00 EDT, [facility], 180, cm, 01/10/21 14:13:00 EDT, [...]
--- OUTSIDE RECORDS SUMMARY | 2023-01-16 23:41 | XMS_ITS | Continuity of Care Document ---
Author Name Unknown Organization [facility] Address [address] [place] [address]- Care Team Providers Care Peer Specialist Name Role Phone Salomon OLMEDO, Jet Primary Care Physician [phone] Encounter [facility] Date(s): 10/24/22 - 11/23/22 [facility] [address] [place], [place] [address] Allergies, Adverse Reactions, Alerts Substance [...] virus vaccine, inactivated 4 06/06/10 Gi lamar [id number] 12y+ bivalent booster vax 06/29/22 Recorded SARS-CoV-2 [...] 1Admin Note: recv'd at PCP office in [place] 2Admin Note: afluria 3Admin Note: Flucelvax 4Admin Note: VIS Given 5Admin Note: MENVEO #2 dose VIS GIVEN 6Admin Note: MENVEO 7Result Comment: [08/06/2017] verbal consent obtained, allergies reviewed. Has had flu shot in past with no issues. [facility] flu vaccine sheet given. 8Admin Note: #2 9Admin Note: [facility] Records 10Admin Note: VIS given 11Admin Note: VIS given 12Result Comment: wrong patient 13Admin Note: Dr. Suarez Records 14Admin Note: [facility] Records 15Admin Note: [facility] Records #2 16Admin Note: [facility] Records #1 17Admin Note: [facility] Records Medications buPROPion 150 mg/24 hours (XL) oral tablet, extended release 1 tablet, By Mouth, Daily in AM, # 30 tablet, 2 Refills, Maintenance, 09/21/22 10:35:00 EST, [facility], 30, TAKE ONE TABLET BY MOUTH EVERY MORNING, 180, cm, 08/21/22 11:37:00 EST, Height Start Date: 09/21/22 Status: Ordered buPROPion 300 mg/24 hours (XL) oral tablet, extended release 1 tablet, By Mouth, Daily, # 30 tablet, 2 Refills, Maintenance, 09/21/22 10:35:00 EST, [facility], 180, cm, 08/21/22 11:37:00 EST, Height Start Date: 09/21/22 Status: Ordered busPIRone 5 mg oral tablet See Instructions, Take 1 tab qam po and 2 tabs qhs, # 180 tablet, Refills 2, Tot. Refills 2, 07/04/22 12:31:00 EST, Instructions Replace Required Details, Route to Pharmacy Electronically, [facility], 180, cm, 06/29/22 9:00:00 EDT, [...] 5 Refills, Maintenance, 11/15/22 15:13:00 EDT, Tablet, [facility], 1 tablet By Mouth Daily,x30 days,Instr:with food, 180, cm, 08/21/22 11:37:00 EST, Height Start Date: 11/15/22 Stop Date: 05/14/23 Status: Ordered hydrOXYzine pamoate 25 mg oral capsule 1-2 CAPSULES, By Mouth, 2 times a day, PRN NEEDED FOR ANXIETY OR INSOMNIA, MAX OF 4, DAILY., # 120 capsule, 2 Refills, Maintenance, 10/16/22 13:28:00 EST, [facility], 180, cm, 08/21/22 11:37:00 EST, Height Start Date: 10/16/22 Status: Ordered Nasacort Allergy 24HR 55 mcg/inh nasal spray See Instructions, 2 sprays Daily, # 1 each, 1 Refills, Maintenance, 09/25/16 12:12:25 Start Date: 09/25/16 Status: Ordered prazosin 1 mg oral capsule 4, capsule, By Mouth, Daily at bedtime, # 120 capsule, Refills 2, Maintenance, 09/21/22 10:35:00 EST, Route to Pharmacy Electronically, [facility], 180, cm, 08/21/22 11:37:00 EST, Height Start Date: 09/21/22 Status: Ordered zolpidem 10 mg oral tablet See Instructions, TAKE ONE TABLET BY MOUTH EVERY NIGHT AT BEDTIME NEEDED FOR SLEEP, # 30 tablet,2 Refills, Maintenance, 03/08/22 9:53:00 EDT, [facility], 180, cm, 01/23/22 14:19:00 EDT, Height Start Date: 03/08/22 Status: Ordered zolpidem 10 mg oral tablet See Instructions, TAKE ONE TABLET BY MOUTH EVERY NIGHT AT BEDTIME NEEDED FOR SLEEP, # 30 tablet,0 Refills, Maintenance, 09/24/22 17:46:00 EST, [facility], 180, cm, 08/21/22 11:37:00 EST, Height Start Date: 09/24/22 Status: Ordered zolpidem 10 mg oral tablet See Instructions, TAKE ONE TABLET BY MOUTH EVERY NIGHT AT BEDTIME NEEDED FOR SLEEP, # 30 tablet,0 Refills, Maintenance, 10/25/22 16:37:00 EST, [facility], 180, cm, 08/21/22 11:37:00 EST, Height Start Date: 10/25/22 Status: Ordered ZyrTEC 10 mg oral tablet 1 tablet = 10 mg, By Mouth, Daily, # 30 tablet, 11 Refills, Maintenance, 01/23/22 14:27:00 EDT, Tablet, [facility]/pharmacy #[id number], 180, cm, 01/23/22 14:19:00 EDT, Height [...] Team Personnel Name: Jet Latif MD Position: [facility] Primary Care Physician Member Role: PCP Address: Address: [address] [place] [address]- Name: Kashif Chamberlain MD Position: [facility] Infectious Disease MD Member Role: Lifetime Consulting Physician Address: Address: [address] [facility] [place] [address]- Care Team Related Persons Name: ANNA IBARRA Address: [address] [place] [address]
--- OUTSIDE RECORDS SUMMARY | 2023-01-16 23:41 | XMS_ITS | Continuity of Care Document ---
Author Name Unknown Organization [facility] Address [address] [place] [address]- Care Team Providers Care Specialty Person Name Role Phone Salomon OLMEDO, Jet Primary Care Physician Encounter [facility] Date(s): 03/31/21 - 04/30/21 [facility] [address] [place], [place] [address] Allergies, Adverse Reactions, Alerts Substance Reaction [...] 3Admin Note: recv'd at PCP office in [place] 4Admin Note: afluria 5Admin Note: Flucelvax 6Admin Note: VIS Given 7Result Comment: [08/06/2017] verbal consent obtained, allergies reviewed. Has had flu shot in past with no issues. [facility] flu vaccine sheet given. 8Admin Note: #2 9Admin Note: [facility] Records 10Admin Note: VIS given 11Admin Note: VIS given 12Result Comment: wrong patient 13Admin Note: Dr. Suarez Records 14Admin Note: [facility] Records 15Admin Note: [facility] Records #2 16Admin Note: [facility] Records #1 17Admin Note: [facility] Records Medications buPROPion 150 mg/24 hours (XL) oral tablet, extended release 1 tablet, By Mouth, Daily in AM, TAKE WITH 300 MG TAB FOR TOTAL OF 450 MG/DAY IN AM, # 30 tablet, 1Refills, Maintenance, 03/03/21 11:22:00 EDT, [facility], 30, 1 tablet By Mouth Daily in AM,Instr:TAKE WITH 300 MG TAB FOR TOTAL OF 450... Start Date: 03/03/21 Status: Ordered busPIRone 5 mg oral tablet See Instructions, Take 1 tab qhs po x 5 days then take 1 tab bid, # 60 tablet, Refills 2, Tot. Refills 2, Maintenance, 02/02/21 11:48:00 EDT, Instructions Replace Required Details, Route to Pharmacy Electronically, [facility], Partial... Start Date: 02/02/21 Status: Ordered clindamycin 1% topical gel 1 application, Topically, 2 times a day, # 60 Gm, 0 Refills, Maintenance, 03/21/21 14:11:00 EDT, [id number] Partial fill upon patient request if the prescription is for a schedule II opioid drug., 1 application Topically 2 times a day, 1... Start Date: 03/21/21 Status: Ordered clotrimazole 1% topical cream 1 application, Topically, 2 times a day, # 113 Gm, 1 Refills, Maintenance, 03/15/21 13:54:00 EDT, Cream, [facility]/pharmacy #[id number], Partial fill upon patient request [...] 5 Refills, Maintenance, 03/27/21 10:44:00 EDT, Tablet, [facility], 1 tablet By Mouth Daily,x30 days,Instr:with food, 180, cm, 03/15/21 13:32:00 EDT, Height Start Date: 03/27/21 Stop Date: 09/23/21 Status: Ordered Nasacort Allergy 24HR 55 mcg/inh nasal spray See Instructions, 2 sprays Daily, # 1 each, 1 Refills, Maintenance, 09/25/16 12:12:25 Start Date: 09/25/16 Status: Ordered nystatin topical 177717 u/gm powder 1 application, Topically, 3 times a day, # 60 Gm, 1 Refills, Maintenance, 04/03/21 18:31:00 EDT, Powder, [facility], Partial fill upon patient request [...] Replace Required Details, Route to Pharmacy Electronically, [facility], 180, cm, 01/10/21 14:13:00 EDT, Height Start Date: 03/03/21 Status: Ordered prazosin 1 mg oral capsule 3, capsule, By Mouth, Daily at bedtime, # 90 capsule, Refills 1, Tot. Refills 0, Maintenance, 01/04/21 15:13:00 EDT, Route to Pharmacy Electronically, [facility], 180, cm, 03/30/20 15:08:00 EDT, Height [...] capsule, 0 Refills, Maintenance, 06/24/20 17:18:00 EDT, [facility], 180, cm, 03/30/20 15:08:00 EDT, Height, 81.8, kg, 10/28/18 10:39:00 EST, Dry Weight Start Date: 06/24/20 Status: Ordered zolpidem 10 mg oral tablet 1 tablet, By Mouth, Daily at bedtime, PRN NEEDED FOR SLEEP, # 30 tablet, 1 Refills, Maintenance,03/03/21 11:22:00 EDT, [facility], 180, cm, 01/10/21 14:13:00 EDT, [...]
--- OUTSIDE RECORDS SUMMARY | 2023-01-16 23:42 | XMS_ITS | Continuity of Care Document ---
Author Name Unknown Organization [facility] Address [address] [place] [address]- Care Team Providers Care Disbursing Agent Name Role Phone Salomon OLMEDO, Jet Primary Care Physician [facility]): 07[facility] - 08/03/22 [facility] [address] [place], [place] [address] Allergies, Adverse Reactions, Alerts Substance [...] 3Admin Note: recv'd at PCP office in [place] 4Admin Note: afluria 5Admin Note: Flucelvax 6Admin Note: VIS Given 7Result Comment: [08/06/2017] verbal consent obtained, allergies reviewed. Has had flu shot in past with no issues. [facility] flu vaccine sheet given. 8Admin Note: #2 9Admin Note: [facility] Records 10Admin Note: VIS given 11Admin Note: VIS given 12Result Comment: wrong patient 13Admin Note: Dr. Suarez Records 14Admin Note: [facility] Records 15Admin Note: [facility] Records #2 16Admin Note: [facility] Records #1 17Admin Note: [facility] Records Medications buPROPion 150 mg/24 hours (XL) oral tablet, extended release See Instructions, TAKE 1 TABLET BY MOUTH EVERY MORNING, # 30 tablet, 2 Refills, 07/04/22 12:32:00 EST, [facility], 30, TAKE 1 TABLET BY MOUTH EVERY MORNING, 180, cm, 06/29/22 9:00:00EDT, Height Start Date: 07/04/22 Status: Ordered buPROPion 300 mg/24 hours (XL) oral tablet, extended release See Instructions, TAKE 1 TABLET BY MOUTH EVERY DAY, # 30 tablet, 2 Refills, 07/04/22 12:31:00 EST, [facility], 180, cm, 06/29/22 9:00:00 EDT, Height Start Date: 07/04/22 Status: Ordered busPIRone 5 mg oral tablet See Instructions, Take 1 tab qam po and 2 tabs qhs, # 180 tablet, Refills 2, Tot. Refills 2, 07/04/22 12:31:00 EST, Instructions Replace Required Details, Route to Pharmacy Electronically, [facility], 180, cm, 06/29/22 9:00:00 EDT, [...] 5 Refills, Maintenance, 05/09/22 11:02:00 EDT, Tablet, [facility], 1 tablet By Mouth [...] Replace Required Details, Route to Pharmacy Electronically, [facility], 180, cm, 06/29/22... Start Date: [...] 30 tablet,2 Refills, Maintenance, 07/04/22 12:32:00 EST, [facility], 180, cm, 06/29/22 9:00:00 EDT, Height Start Date: 07/04/22 Status: Ordered zolpidem 10 mg oral tablet See Instructions, TAKE ONE TABLET BY MOUTH EVERY NIGHT AT BEDTIME NEEDED FOR SLEEP, # 30 tablet,2 Refills, Maintenance, 03/08/22 9:53:00 EDT, [facility], 180, cm, 01/23/22 14:19:00 EDT, Height Start Date: 03/08/22 Status: Ordered zolpidem 10 mg oral tablet See Instructions, TAKE ONE TABLET BY MOUTH EVERY NIGHT AT BEDTIME NEEDED FOR SLEEP, # 30 tablet,1 Refills, Maintenance, 12/08/21 6:04:00 EDT, [facility], 180, cm, 07/11/21 14:47:00 EST, Height Start Date: 12/08/21 Status: Ordered ZyrTEC 10 mg oral tablet 1 tablet = 10 mg, By Mouth, Daily, # 30 tablet, 11 Refills, Maintenance, 01/23/22 14:27:00 EDT, Tablet, [facility]/pharmacy #[id number], 180, cm, 01/23/22 14:19:00 EDT, [...] Team Personnel Name: Jet Latif MD Position: [facility] Primary Care Physician Member Role: PCP Address: Address: [address] [place] [address]- Name: Kashif Chamberlain MD Position: [facility] Infectious Disease MD Member Role: Lifetime Consulting Physician Address: Address: [address] [facility] [place] [address]- Care Team Related Persons Name: ANNA IBARRA Address: [address] [place] [address]
--- OUTSIDE RECORDS SUMMARY | 2023-01-16 23:42 | XMS_ITS | Continuity of Care Document ---
Author Name Unknown Organization [facility] Address [address] [place] [address]- Care Team Providers Care Human Resources Communications Manager Name Role Phone Not on Staff, PCP Primary Care Physician Unavail able [facility]): 01[facility]21 - 02/11/21 [facility] [address] [place], [place] [address] Allergies, Adverse Reactions, Alerts Substance Reaction [...] 3Admin Note: recv'd at PCP office in [place] 4Admin Note: afluria 5Admin Note: Flucelvax 6Admin Note: VIS Given 7Result Comment: [08/06/2017] verbal consent obtained, allergies reviewed. Has had flu shot in past with no issues. [facility] flu vaccine sheet given. 8Admin Note: #2 9Admin Note: [facility] Records 10Admin Note: VIS given 11Admin Note: VIS given 12Result Comment: wrong patient 13Admin Note: Dr. Suarez Records 14Admin Note: [facility] Records 15Admin Note: [facility] Records #2 16Admin Note: [facility] Records #1 17Admin Note: [facility] Records Medications [facility] intramuscular suspension 0.5 mL, Intramuscular, Once, # 0.5 mL, 0 Refills, Soft Stop, 07/10/16 12:13:00 Start Date: 07/10/16 Status: Ordered [facility] intramuscular suspension 0.5 mL, Intramuscular, Once, [...] 30 tablet, 1Refills, Maintenance, 01/04/21 15:13:00 EDT, [facility], 30, TAKE 1 TABLET BY [...] Replace Required Details, Route to Pharmacy Electronically, [facility], Partial... Start Date: 02/02/21 [...] 03/03/14 Stop Date: 07/01/14 Status: Ordered Flucelvax [id number] intramuscular suspension 0.5 mL, Intramuscular, Once, # 0.5 mL, 0 Refills, Soft Stop, 09/13/15 14:14:54 Start Date: 09/13/15 Status: Ordered Genvoya oral tablet 1 tablet, By Mouth, Daily, with food, # 30 tablet, 5 Refills, Maintenance, 09/13/20 10:33:00 EST, Tablet, [facility], 1 tablet By Mouth Daily,x30 [...] 01/04/21 15:13:00 EDT, Route to Pharmacy Electronically, [facility], 180, cm, 03/30/20 15:08:00 [...] capsule, 0 Refills, Maintenance, 06/24/20 17:18:00 EDT, [facility], 180, cm, 03/30/20 15:08:00 EDT, Height, 81.8, kg, 10/28/18 10:39:00 EST, Dry Weight Start Date: 06/24/20 Status: Ordered zolpidem 10 mg oral tablet See Instructions, TAKE ONE TABLET BY MOUTH EVERY NIGHT AT BEDTIME NEEDED FOR SLEEP, # 30 tablet,1 Refills, Maintenance, 01/04/21 15:13:00 EDT, [facility], 180, cm, 03/30/20 15:08:00 EDT, Height Start Date: 01/04/21 Status: Ordered zolpidem 10 mg oral tablet 1 tablet, By Mouth, Daily at bedtime, PRN NEEDED FOR SLEEP, # 30 tablet, 1 Refills, Maintenance,11/11/20 15:50:00 EDT, [facility], 180, cm, 03/30/20 15:08:00 [...]
--- OUTSIDE RECORDS SUMMARY | 2023-01-16 23:42 | XMS_ITS | Continuity of Care Document ---
Author Name Unknown Organization [facility] Address [address] [place] [address]- Care Team Providers Care Room Designer Name Role Phone Salomon OLMEDO, Jet Primary Care Physician [facility]s): 03/26/22 - 04/25/22 [facility] [address] [place] [address]- Allergies, Adverse Reactions, Alerts Substance Reaction Severity [...] 3Admin Note: recv'd at PCP office in [place] 4Admin Note: afluria 5Admin Note: Flucelvax 6Admin Note: VIS Given 7Result Comment: [08/06/2017] verbal consent obtained, allergies reviewed. Has had flu shot in past with no issues. [facility] flu vaccine sheet given. 8Admin Note: #2 9Admin Note: [facility] Records 10Admin Note: VIS given 11Admin Note: VIS given 12Result Comment: wrong patient 13Admin Note: Dr. Suarez Records 14Admin Note: [facility] Records 15Admin Note: [facility] Records #2 16Admin Note: [facility] Records #1 17Admin Note: [facility] Records Medications buPROPion 150 mg/24 hours (XL) oral tablet, extended release See Instructions, TAKE 1 TABLET BY MOUTH EVERY MORNING, # 30 tablet, 2 Refills, 03/08/22 9:52:00 EDT, [facility], 30, TAKE 1 TABLET BY MOUTH EVERY MORNING, 180, cm, 01/23/22 14:19:00EDT, Height Start Date: 03/08/22 Status: Ordered buPROPion 300 mg/24 hours (XL) oral tablet, extended release See Instructions, TAKE 1 TABLET BY MOUTH EVERY DAY, # 30 tablet, 2 Refills, 03/08/22 9:52:00 EDT, [facility], 180, cm, 01/23/22 14:19:00 EDT, Height Start Date: 03/08/22 Status: Ordered busPIRone 5 mg oral tablet See Instructions, Take 1 tab qam po and 2 tabs qhs, # 180 tablet, Refills 2, Tot. Refills 2, 03/08/22 9:51:00 EDT, Instructions Replace Required Details, Route to Pharmacy Electronically, [facility], 180, cm, 01/23/22 14:19:00 EDT, He... Start Date: 03/08/22 Status: Ordered clindamycin 1% topical gel 1 application, Topically, 2 times a day, # 60 Gm, 0 Refills, Maintenance, 03/21/21 14:11:00 EDT, Gel, [facility]/pharmacy #[id number], Partial fill upon patient request if the prescription is for a schedule II opioid drug., 1 application Topically 2 times a day, 1... Start Date: 03/21/21 Status: Ordered clotrimazole 1% topical cream 1 application, Topically, 2 times a day, # 113 Gm, 1 Refills, Maintenance, 03/15/21 13:54:00 EDT, Cream, [facility]/pharmacy #[id number], Partial fill upon patient request if [...] 5 Refills, Maintenance, 11/20/21 10:48:00 EDT, Tablet, [facility], 1 tablet By Mouth Daily,x30 days,Instr:with food, 180, cm, 07/11/21 14:47:00 EST, Height Start Date: 11/20/21 Stop Date: 05/19/22 Status: Ordered Nasacort Allergy 24HR 55 mcg/inh nasal spray See Instructions, 2 sprays Daily, # 1 each, 1 Refills, Maintenance, 09/25/16 12:12:25 Start Date: 09/25/16 Status: Ordered nystatin topical [id number] u/gm powder 1 application, Topically, 3 times a day, # 60 Gm, 1 Refills, Maintenance, 06/06/21 14:33:00 EDT, Powder, [facility]/pharmacy #[id number], Partial fill upon patient request if the prescription is for a schedule IIopioid drug., 1 application Topically 3 times a day... Start Date: 06/06/21 Status: Ordered prazosin 1 mg oral capsule See Instructions, TAKE 4 CAPSULES BY MOUTH ONCE DAILY AT BEDTIME, # 120 capsule, Refills 2, Tot. Refills 2, Instructions Replace Required Details, [facility], [facility], cm, 01/23/22 14:19:00 EDT, Height Start Date: 03/08/22 Status: Ordered Vistaril pamoate 25 mg oral capsule See Instructions, PRN as needed for anxiety, take 1-2 caps po bid prn for anxiety or insomnia. Max 4 caps/day, # 120 capsule, 1 Refills, Maintenance, 12/08/21 6:01:00 EDT, [facility], 180, cm, 07/11/21 14:47:00 EST, Height Start Date: 12/08/21 Status: Ordered zolpidem 10 mg oral tablet See Instructions, TAKE ONE TABLET BY MOUTH EVERY NIGHT AT BEDTIME NEEDED FOR SLEEP, # 30 tablet,2 Refills, Maintenance, 03/08/22 9:53:00 EDT, [facility], 180, cm, 01/23/22 14:19:00 EDT, Height Start Date: 03/08/22 Status: Ordered zolpidem 10 mg oral tablet See Instructions, TAKE ONE TABLET BY MOUTH EVERY NIGHT AT BEDTIME NEEDED FOR SLEEP, # 30 tablet,1 Refills, Maintenance, 10/26/21 17:15:00 EST, [facility], 180, cm, 07/11/21 14:47:00 EST, Height Start Date: 10/26/21 Status: Ordered zolpidem 10 mg oral tablet See Instructions, TAKE ONE TABLET BY MOUTH EVERY NIGHT AT BEDTIME NEEDED FOR SLEEP, # 30 tablet,1 Refills, Maintenance, 12/08/21 6:04:00 EDT, [facility], 180, cm, 07/11/21 14:47:00 EST, Height Start Date: 12/08/21 Status: Ordered ZyrTEC 10 mg oral tablet 1 tablet = 10 mg, By Mouth, Daily, # 30 tablet, 11 Refills, Maintenance, 01/23/22 14:27:00 EDT, Tablet, [facility]/pharmacy #[id number], 180, cm, 01/23/22 14:19:00 EDT, Height [...] on: 09/29/13 Sex Care Team Personnel Name: Jet Latif MD [facility] [address]
--- OUTSIDE RECORDS SUMMARY | 2023-01-16 23:42 | XMS_ITS | Continuity of Care Document ---
Author Name Unknown Organization [facility] Address [address] [place] [address]- Care Team Providers Care Pipe And Tank Fabricator Name Role Phone Not on Staff, PCP Primary Care Physician Unavail able [facility]s): 01/11/21 - 02/10/21 [facility] [address] [place], [place] [address] Allergies, Adverse Reactions, Alerts Substance Reaction Severity Status penicillin rash, SOB Active Atripla hives Active Immunizations Given and Recorded Vaccine Date Status Refusal Reason SARS-CoV-2 (COVID-19) mRNA-1273 vaccine 12/05/20 R ecorded SARS-CoV-2 (COVID-19) mRNA-1273 vaccine 11/07/20 R ecorded Meningococcal Conjugate Vaccine 1 07/01/18 Given Meningococcal Conjugate Vaccine 2 01/01/17 Given influenza virus vaccine, inactivated 3 05/30/18 Gi laamr influenza virus vaccine, inactivated 4 07/10/16 Gi [...] 3Admin Note: recv'd at PCP office in [place] 4Admin Note: afluria 5Admin Note: Flucelvax 6Admin Note: VIS Given 7Result Comment: [08/06/2017] verbal consent obtained, allergies reviewed. Has had flu shot in past with no issues. [facility] flu vaccine sheet given. 8Admin [...] [facility] Records #1 17Admin Note: [facility] Records Medications [facility] intramuscular suspension 0.5 mL, Intramuscular, Once, # 0.5 mL, 0 Refills, Soft Stop, 07/10/16 12:13:00 Start Date: 07/10/16 Status: Ordered [facility] intramuscular suspension 0.5 mL, Intramuscular, Once, # [...] 30 tablet, 1Refills, Maintenance, 01/04/21 15:13:00 EDT, [facility], 30, TAKE 1 TABLET BY MOUTH DAILY IN THE MORNING. TAKE WITH 300 MG TAB FOR TOT... Start Date: 01/04/21 Status: Ordered busPIRone 5 mg oral tablet See Instructions, Take 1 tab qhs po x 5 days then take 1 tab bid, # 60 tablet, Refills 2, Tot. Refills 2, Maintenance, 02/02/21 11:48:00 EDT, Instructions Replace Required Details, Route to Pharmacy Electronically, [facility], Partial... Start Date: [...] 03/03/14 Stop Date: 07/01/14 Status: Ordered Flucelvax [id number] intramuscular suspension 0.5 mL, Intramuscular, Once, # 0.5 mL, 0 Refills, Soft Stop, 09/13/15 14:14:54 Start Date: 09/13/15 Status: Ordered Genvoya oral tablet 1 tablet, By Mouth, Daily, with food, # 30 tablet, 5 Refills, Maintenance, 09/13/20 10:33:00 EST, Tablet, [facility], 1 tablet By Mouth Daily,x30 [...] 01/04/21 15:13:00 EDT, Route to Pharmacy Electronically, [facility], 180, cm, 03/30/20 15:08:00 EDT, Height [...] capsule, 0 Refills, Maintenance, 06/24/20 17:18:00 EDT, [facility], 180, cm, 03/30/20 15:08:00 EDT, Height, 81.8, kg, 10/28/18 10:39:00 EST, Dry Weight Start Date: 06/24/20 Status: Ordered zolpidem 10 mg oral tablet See Instructions, TAKE ONE TABLET BY MOUTH EVERY NIGHT AT BEDTIME NEEDED FOR SLEEP, # 30 tablet,1 Refills, Maintenance, 01/04/21 15:13:00 EDT, [facility], 180, cm, 03/30/20 15:08:00 EDT, Height Start Date: 01/04/21 Status: Ordered zolpidem 10 mg oral tablet 1 tablet, By Mouth, Daily at bedtime, PRN NEEDED FOR SLEEP, # 30 tablet, 1 Refills, Maintenance,11/11/20 15:50:00 EDT, [facility], 180, cm, 03/30/20 15:08:00 [...]
--- OUTSIDE RECORDS SUMMARY | 2023-01-16 23:42 | XMS_ITS | Continuity of Care Document ---
Author Name Unknown Organization [facility] Address [address] [place], [place] [address] ve [address] [place] [address]- Care Team Providers Care Belt Builder Name Role Phone Not on Staff, PCP Primary Care Physician Unavail able [facility]s): 01/11/21 - 03/09/[address] [place] [address]- Attending Physician: Tere AYOUB, Shreya Pearson Referring [...] 3Admin Note: recv'd at PCP office in [place] 4Admin Note: afluria 5Admin Note: Flucelvax 6Admin Note: VIS Given 7Result Comment: [08/06/2017] verbal consent obtained, allergies reviewed. Has had flu shot in past with no issues. [facility] flu vaccine sheet given. 8Admin Note: #2 9Admin Note: [facility] Records 10Admin Note: VIS given 11Admin Note: VIS given 12Result Comment: wrong patient 13Admin Note: Dr. Suarez Records 14Admin Note: [facility] Records 15Admin Note: [facility] Records #2 16Admin Note: [facility] Records #1 17Admin Note: [facility] Records Medications [facility] intramuscular suspension 0.5 mL, Intramuscular, Once, # 0.5 mL, 0 Refills, Soft Stop, 07/10/16 12:13:00 Start Date: 07/10/16 Status: Ordered [facility] intramuscular suspension 0.5 mL, Intramuscular, Once, [...] 30 tablet, 1Refills, Maintenance, 03/03/21 11:22:00 EDT, [facility], 30, 1 tablet By [...] Required Details, Route to Pharmacy Electronically, [facility], Partial... Start Date: 02/02/21 Status: Ordered [...] 03/03/14 Stop Date: 07/01/14 Status: Ordered Flucelvax [id number] intramuscular suspension 0.5 mL, Intramuscular, Once, # 0.5 mL, 0 Refills, Soft Stop, 09/13/15 14:14:54 Start Date: 09/13/15 Status: Ordered Genvoya oral tablet 1 tablet, By Mouth, Daily, with food, # 30 tablet, 5 Refills, Maintenance, 09/13/20 10:33:00 EST, Tablet, [facility], 1 tablet By Mouth Daily,x30 days,Instr:with [...] Replace Required Details, Route to Pharmacy Electronically, [facility], 180, cm, 01/10/21 14:13:00 EDT, Height Start Date: 03/03/21 Status: Ordered prazosin 1 mg oral capsule 3, capsule, By Mouth, Daily at bedtime, # 90 capsule, Refills 1, Tot. Refills 0, Maintenance, 01/04/21 15:13:00 EDT, Route to Pharmacy Electronically, [facility], 180, cm, 03/30/20 15:08:00 EDT, [...] capsule, 0 Refills, Maintenance, 06/24/20 17:18:00 EDT, [facility], 180, cm, 03/30/20 15:08:00 EDT, Height, 81.8, kg, 10/28/18 10:39:00 EST, Dry Weight Start Date: 06/24/20 Status: Ordered zolpidem 10 mg oral tablet 1 tablet, By Mouth, Daily at bedtime, PRN NEEDED FOR SLEEP, # 30 tablet, 1 Refills, Maintenance,03/03/21 11:22:00 EDT, [facility], 180, cm, 01/10/21 14:13:00 [...]
--- OUTSIDE RECORDS SUMMARY | 2023-01-16 23:42 | XMS_ITS | Continuity of Care Document ---
Author Name Unknown Organization [facility] Address [address] [place] [address]- Care Team Providers Care Travel Manager Name Role Phone Not on Staff, PCP Primary Care Physician Unavail able Encounter [facility] Date(s): 12/09/20 - 01/26/21 [facility] [address] [place] [address]- Attending Physician: Kashif Chamberlain MD Admitting Physician: Kashif Chamberlain MD Allergies, Adverse Reactions, [...] 3Admin Note: recv'd at PCP office in [place] 4Admin Note: afluria 5Admin Note: Flucelvax 6Admin Note: VIS Given 7Result Comment: [08/06/2017] verbal consent obtained, allergies reviewed. Has had flu shot in past with no issues. [facility] flu vaccine sheet given. 8Admin Note: #2 9Admin Note: [facility] Records 10Admin Note: VIS given 11Admin Note: VIS given 12Result Comment: wrong patient 13Admin Note: Dr. Suarez Records 14Admin Note: [facility] Records 15Admin Note: [facility] Records #2 16Admin Note: [facility] Records #1 17Admin Note: [facility] Records Medications [facility] intramuscular suspension 0.5 mL, Intramuscular, Once, # 0.5 mL, 0 Refills, Soft Stop, 07/10/16 12:13:00 Start Date: 07/10/16 Status: Ordered [facility] intramuscular suspension 0.5 mL, Intramuscular, Once, [...] 30 tablet, 1Refills, Maintenance, 01/04/21 15:13:00 EDT, [facility], 30, TAKE 1 TABLET BY MOUTH DAILY IN THE MORNING. TAKE WITH 300 MG TAB FOR TOT... Start Date: 01/04/21 Status: Ordered docusate sodium 100 mg oral capsule 1 capsule = 100 mg, By Mouth, 2 times a day, Hold for loose stools Drink Plenty of Water, # 60 capsule, 3 Refills, Maintenance, 03/03/14 18:39:45, Capsule, 1 capsule By Mouth 2 times a day,x30 days,Instr:Hold for loose stools ; Drink Plenty of Water Start Date: 03/03/14 Stop Date: 07/01/14 Status: Ordered Flucelvax [id number] intramuscular suspension 0.5 mL, Intramuscular, Once, # 0.5 mL, 0 Refills, Soft Stop, 09/13/15 14:14:54 Start Date: 09/13/15 Status: Ordered Genvoya oral tablet 1 tablet, By Mouth, Daily, with food, # 30 tablet, 5 Refills, Maintenance, 09/13/20 10:33:00 EST, Tablet, [facility], 1 tablet By Mouth Daily,x30 [...] 01/04/21 15:13:00 EDT, Route to Pharmacy Electronically, [facility], 180, cm, 03/30/20 15:08:00 EDT, [...] capsule, 0 Refills, Maintenance, 06/24/20 17:18:00 EDT, [facility], 180, cm, 03/30/20 15:08:00 EDT, Height, 81.8, kg, 10/28/18 10:39:00 EST, Dry Weight Start Date: 06/24/20 Status: Ordered zolpidem 10 mg oral tablet See Instructions, TAKE ONE TABLET BY MOUTH EVERY NIGHT AT BEDTIME NEEDED FOR SLEEP, # 30 tablet,1 Refills, Maintenance, 01/04/21 15:13:00 EDT, [facility], 180, cm, 03/30/20 15:08:00 EDT, Height Start Date: 01/04/21 Status: Ordered zolpidem 10 mg oral tablet 1 tablet, By Mouth, Daily at bedtime, PRN NEEDED FOR SLEEP, # 30 tablet, 1 Refills, Maintenance,11/11/20 15:50:00 EDT, [facility], 180, cm, 03/30/20 15:08:00 EDT, Height [...]
--- OUTSIDE RECORDS SUMMARY | 2023-01-16 23:42 | XMS_ITS | Continuity of Care Document ---
Author Name Unknown Organization [facility] Infectious Disease Address [address] [place] [address]- Care Team Providers Care Customer Service Leader Name Role Phone Jorge A OLMEDO, Susu Primary Care Physician [phone] Encounter [facility] Date(s): 10/19/19 - 12/25/19 [facility] Infectious Disease [address] [place] [address]- [facility] Attending Physician: Kashif Chamberlain MD Admitting Physician: [...] 3Admin Note: recv'd at PCP office in [place] 4Admin Note: afluria 5Admin Note: Flucelvax 6Admin Note: VIS Given 7Result Comment: [08/06/2017] verbal consent obtained, allergies reviewed. Has had flu shot in past with no issues. [facility] flu vaccine sheet given. 8Admin Note: #2 9Admin Note: [facility] Records 10Admin Note: VIS given 11Admin Note: VIS given 12Result Comment: wrong patient 13Admin Note: Dr. Suarez Records 14Admin Note: [facility] Records 15Admin Note: [facility] Records #2 16Admin Note: [facility] Records #1 17Admin Note: [facility] Records Medications [facility] intramuscular suspension 0.5 mL, Intramuscular, Once, # 0.5 mL, 0 Refills, Soft Stop, 07/10/16 12:13:00 Start Date: 07/10/16 Status: Ordered [facility] intramuscular suspension 0.5 mL, Intramuscular, Once, # 0.5 mL, 0 Refills, Soft Stop, 08/06/17 13:28:00 Start Date: 08/06/17 Status: Ordered Ambien 10 mg oral tablet 1 tablet = 10 mg, By Mouth, Daily at bedtime, PRN as needed for sleep, # 30 tablet, 1 Refills, Maintenance, 11/11/19 15:46:00 EDT, Tablet, [facility], 180, cm, 06/24/19 9:51:00 EDT, Height, 81.8, kg, 10/28/18 10:39:00 EST, Dry Weight Start Date: 11/11/19 Status: Ordered Boostrix (Tdap) intramuscular suspension 0.5 mL, Intramuscular, Once, # 5 mL, 0 Refills, Soft Stop, 05/09/17 14:35:00, Suspension Start Date: 01/01/17 Status: Ordered buPROPion 300 mg/24 hours (XL) oral tablet, extended release 1 tablet = 300 mg, By Mouth, Every 24 hours, # 90 tablet, 1 Refills, Maintenance, 11/11/19 15:45:00EDT, [facility], 180, cm, 06/24/19 9:51:00 EDT, [...] 03/03/14 Stop Date: 07/01/14 Status: Ordered Flucelvax [id number] intramuscular suspension 0.5 mL, Intramuscular, Once, # 0.5 mL, 0 Refills, Soft Stop, 09/13/15 14:14:54 Start Date: 09/13/15 Status: Ordered Genvoya oral tablet 1 tablet, By Mouth, Daily, with food, # 30 tablet, 5 Refills, Maintenance, 05/29/18 15:05:00 EDT, Tablet, 1 tablet By Mouth Daily,x30 days,Instr:with food Start Date: 05/29/18 Stop Date: 11/25/18 Status: Ordered Genvoya oral tablet 1 tablet, By Mouth, Daily, for 30 days, with food, # 30 tablet, 11 Refills, Hard Stop 12/30/19 13:33:00 EDT, 01/04/19 13:33:00 EDT, Tablet, 1 tablet By Mouth Daily,x30 days,Instr:with food Start Date: 01/04/19 Stop Date: 12/30/19 Status: Ordered Menveo intramuscular injection 0.5 mL, [...]
--- OUTSIDE RECORDS SUMMARY | 2023-01-16 23:42 | XMS_ITS | Continuity of Care Document ---
Author Name Unknown Organization [facility] Infectious Disease Address [address] [place] [address]- Care Team Providers Care Urologic Nurse Name Role Phone Salomon OLMEDO, Richa Primary Care Physician Encounter [facility] Date(s): 07/04/21 - 08/03/21 [facility] Disease [address] [place] [id number]- Allergies, Adverse Reactions, Alerts Substance Reaction Severity [...] 3Admin Note: recv'd at PCP office in [place] 4Admin Note: afluria 5Admin Note: Flucelvax 6Admin Note: VIS Given 7Result Comment: [08/06/2017] verbal consent obtained, allergies reviewed. Has had flu shot in past with no issues. [facility] flu vaccine sheet given. 8Admin Note: #2 9Admin Note: [facility] Records 10Admin Note: VIS given 11Admin Note: VIS given 12Result Comment: wrong patient 13Admin Note: Dr. Suarez Records 14Admin Note: [facility] Records 15Admin Note: [facility] Records #2 16Admin Note: [facility] Records #1 17Admin Note: [facility] Records Medications buPROPion 150 mg/24 hours (XL) oral tablet, extended release 1 tablet, By Mouth, Daily in AM, # 30 tablet, 1 Refills, 06/28/21 8:50:00 EDT, [facility]/pharmacy #[id number], 30, 1 tablet By Mouth Daily in AM, 180, cm, 03/15/21 13:32:00 EDT, Height Start Date: 06/28/21 Status: Ordered buPROPion 300 mg/24 hours (XL) oral tablet, extended release 1 tablet, By Mouth, Daily, # 30 tablet, 1 Refills, 06/28/21 8:50:00 EDT, [facility]/pharmacy #[id number], 180, cm, 03/15/21 13:32:00 EDT, Height [...] 0 Refills, Maintenance, 03/21/21 14:11:00 EDT, Gel, [facility]/pharmacy #[id number], Partial fill upon patient request if the prescription is for a schedule II opioid drug., 1 application Topically 2 times a day, 1... Start Date: 03/21/21 Status: Ordered clotrimazole 1% topical cream 1 application, Topically, 2 times a day, # 113 Gm, 1 Refills, Maintenance, 03/15/21 13:54:00 EDT, Cream, [facility]/pharmacy #[id number], Partial fill upon patient request [...] 5 Refills, Maintenance, 03/27/21 10:44:00 EDT, Tablet, [facility], 1 tablet By Mouth Daily,x30 days,Instr:with food, 180, cm, 03/15/21 13:32:00 EDT, Height Start Date: 03/27/21 Stop Date: 09/23/21 Status: Ordered Nasacort Allergy 24HR 55 mcg/inh nasal spray See Instructions, 2 sprays Daily, # 1 each, 1 Refills, Maintenance, 09/25/16 12:12:25 Start Date: 09/25/16 Status: Ordered nystatin topical [id number] u/gm powder 1 application, Topically, 3 times a day, # 60 Gm, 1 Refills, Maintenance, 06/06/21 14:33:00 EDT, Powder, [facility]/pharmacy #[id number], Partial fill upon patient request if the prescription is for a schedule IIopioid drug., 1 application Topically 3 times a day... Start Date: 06/06/21 Status: Ordered prazosin 1 mg oral capsule 3, capsule, By Mouth, Daily at bedtime, # 90 capsule, Refills 1, Route to Pharmacy Electronically, [facility], 180, cm, 03/15/21 13:32:00 EDT, Height Start Date: 05/02/21 Status: Ordered Vistaril pamoate 25 mg oral capsule 1 capsule = 25 mg, By Mouth, Daily at bedtime, PRN Insomnia, # 30 capsule, 0 Refills, Maintenance, 06/24/20 17:18:00 EDT, [facility], 180, cm, 03/30/20 15:08:00 EDT, Height, 81.8, kg, 10/28/18 10:39:00 EST, Dry Weight Start Date: 06/24/20 Status: Ordered zolpidem 10 mg oral tablet 1 tablet, By Mouth, Daily at bedtime, PRN NEEDED FOR SLEEP, # 30 tablet, 1 Refills, Maintenance,06/28/21 8:55:00 EDT, [facility]/pharmacy #[id number], 180, cm, 03/15/21 13:32:00 EDT, Height [...]
--- OUTSIDE RECORDS SUMMARY | 2023-01-16 23:42 | XMS_ITS | Continuity of Care Document ---
Author Name Unknown Organization [facility] Address [address] [place] [address]- Care Team Providers Care Insurance Service Representative Name Role Phone Salomon OLMEDO, Jet Primary Care Physician Encounter [facility] [place] [facility] [id number] Date(s): 06/12/22 - 07/12/22 [facility] [address]- Attending Physician: Karen Bowser Admitting Physician: Karen [...] 3Admin Note: recv'd at PCP office in [place] 4Admin Note: afluria 5Admin Note: Flucelvax 6Admin Note: VIS Given 7Result Comment: [08/06/2017] verbal consent obtained, allergies reviewed. Has had flu shot in past with no issues. [facility] flu vaccine sheet given. 8Admin Note: #2 9Admin Note: [facility] Records 10Admin Note: VIS given 11Admin Note: VIS given 12Result Comment: wrong patient 13Admin Note: Dr. Suarez Records 14Admin Note: [facility] Records 15Admin Note: [facility] Records #2 16Admin Note: [facility] Records #1 17Admin Note: [facility] Records Medications buPROPion 150 mg/24 hours (XL) oral tablet, extended release See Instructions, TAKE 1 TABLET BY MOUTH EVERY MORNING, # 30 tablet, 2 Refills, 07/04/22 12:32:00 EST, [facility], 30, TAKE 1 TABLET BY MOUTH EVERY MORNING, 180, cm, 06/29/22 9:00:00EDT, Height Start Date: 07/04/22 Status: Ordered buPROPion 300 mg/24 hours (XL) oral tablet, extended release See Instructions, TAKE 1 TABLET BY MOUTH EVERY DAY, # 30 tablet, 2 Refills, 07/04/22 12:31:00 EST, [facility], 180, cm, 06/29/22 9:00:00 EDT, Height Start Date: 07/04/22 Status: Ordered busPIRone 5 mg oral tablet See Instructions, Take 1 tab qam po and 2 tabs qhs, # 180 tablet, Refills 2, Tot. Refills 2, 07/04/22 12:31:00 EST, Instructions Replace Required Details, Route to Pharmacy Electronically, [facility], 180, cm, 06/29/22 9:00:00 [...] 07/27/22 9:34:00 EST, 06/29/22 9:34:00 EDT, Tablet, [facility]/pharmacy #[id number], Partial fill upon patient request if the prescription is for a schedule II opioid drug., 180,... Start Date: 06/29/22 Stop Date: 07/27/22 Status: Ordered Genvoya oral tablet 1 tablet, By Mouth, Daily, with food, # 30 tablet, 5 Refills, Maintenance, 05/09/22 11:02:00 EDT, Tablet, [facility], 1 tablet By Mouth Daily,x30 [...] Replace Required Details, Route to Pharmacy Electronically, [facility], 180, cm, 06/29/22... Start Date: 07/04/22 Status: Ordered Vistaril pamoate 25 mg oral capsule See Instructions, PRN as needed for anxiety, take 1-2 caps po bid prn for anxiety or insomnia. Max 4 caps/day, # 120 capsule, 2 Refills, Maintenance, 07/04/22 12:32:00 EST, [facility], 180, cm, 06/29/22 9:00:00 EDT, Height Start Date: 07/04/22 Status: Ordered zolpidem 10 mg oral tablet See Instructions, TAKE ONE TABLET BY MOUTH EVERY NIGHT AT BEDTIME NEEDED FOR SLEEP, # 30 tablet,2 Refills, Maintenance, 07/04/22 12:32:00 EST, [facility], 180, cm, 06/29/22 9:00:00 EDT, Height Start Date: 07/04/22 Status: Ordered zolpidem 10 mg oral tablet See Instructions, TAKE ONE TABLET BY MOUTH EVERY NIGHT AT BEDTIME NEEDED FOR SLEEP, # 30 tablet,2 Refills, Maintenance, 03/08/22 9:53:00 EDT, [facility], 180, cm, 01/23/22 14:19:00 EDT, Height Start Date: 03/08/22 Status: Ordered zolpidem 10 mg oral tablet See Instructions, TAKE ONE TABLET BY MOUTH EVERY NIGHT AT BEDTIME NEEDED FOR SLEEP, # 30 tablet,1 Refills, Maintenance, 12/08/21 6:04:00 EDT, [facility], 180, cm, 07/11/21 14:47:00 EST, Height Start Date: 12/08/21 Status: Ordered ZyrTEC 10 mg oral tablet 1 tablet = 10 mg, By Mouth, Daily, # 30 tablet, 11 Refills, Maintenance, 01/23/22 14:27:00 EDT, Tablet, [facility]/pharmacy #[id number], 180, cm, 01/23/22 14:19:00 EDT, [...] Team Personnel Name: Jet Latif MD Position: [facility] Primary Care Physician Member Role: PCP Address: Address: [address] [place] [address] Adult & [place] [address]- Name: Kashif Chamberlain MD Position: [facility] Infectious Disease MD Member Role: Lifetime Consulting Physician Address: Address: [address] [place] [address] [place] [address]- Care Team Related Persons Name: ANNA IBARRA Address: home [address] [place] [address]
--- OUTSIDE RECORDS SUMMARY | 2023-01-16 23:42 | XMS_ITS | Continuity of Care Document ---
Author Name Unknown Organization [facility] Address [address] [place] [address]- Care Team Providers Care Warehouse Freight Handler Name Role Phone Salomon OLMEDO, [facility] Primary Care Physician Encounter [facility] Date(s): 08/07/21 - 09/06/21 [facility] [address] [place] [address]- Allergies, Adverse Reactions, Alerts Substance Reaction Severity [...] 3Admin Note: recv'd at PCP office in [place] 4Admin Note: afluria 5Admin Note: Flucelvax 6Admin Note: VIS Given 7Result Comment: [08/06/2017] verbal consent obtained, allergies reviewed. Has had flu shot in past with no issues. [facility] flu vaccine sheet given. 8Admin Note: #2 9Admin Note: [facility] Records 10Admin Note: VIS given 11Admin Note: VIS given 12Result Comment: wrong patient 13Admin Note: Dr. Suarez Records 14Admin Note: [facility] Records 15Admin Note: [facility] Records #2 16Admin Note: [facility] Records #1 17Admin Note: [facility] Records Medications buPROPion 150 mg/24 hours (XL) oral tablet, extended release 1 tablet, By Mouth, Daily in AM, # 30 tablet, 1 Refills, 06/28/21 8:50:00 EDT, [facility]/pharmacy #[id number], 30, 1 tablet By Mouth Daily in AM, 180, cm, 03/15/21 13:32:00 EDT, Height Start Date: 06/28/21 Status: Ordered buPROPion 150 mg/24 hours (XL) oral tablet, extended release See Instructions, TAKE ONE TABLET BY MOUTH EVERY MORNING WITH 300 MG TABLET FOR A TOTAL OF 450 MG PER DAY IN THE MORNING, # 30 tablet, 5 Refills, [facility], 30, TAKE ONE TABLET BY MOUTH EVERY MORNING WITH 300 MG TABLET FOR A TOTAL OF... Start Date: 08/22/21 Status: Ordered buPROPion 300 mg/24 hours (XL) oral tablet, extended release 1 tablet, By Mouth, Daily, # 30 tablet, 1 Refills, 06/28/21 8:50:00 EDT, [facility], cm, 03/15/21 13:32:00 EDT, Height Start Date: 06/28/21 Status: Ordered buPROPion 300 mg/24 hours (XL) oral tablet, extended release See Instructions, TAKE ONE TABLET BY MOUTH ONCE DAILY, # 30 tablet, 5 Refills, [facility], 180, cm, 07/11/21 14:47:00 EST, Height Start Date: 08/22/21 Status: Ordered busPIRone 5 mg oral tablet 5 mg, 1, tablet, By Mouth, 2 times a day, # 60 tablet, Refills 2, Tot. Refills 2, Maintenance, 08/22/21 12:35:00 EST, [facility] 180, cm, 07/11/21 14:47:00 EST, Height Start Date: 08/22/21 Status: Ordered clindamycin 1% topical gel 1 application, Topically, 2 times a day, # 60 Gm, 0 Refills, Maintenance, 03/21/21 14:11:00 EDT, Gel, [facility]/pharmacy #[id number], Partial fill upon patient request if the prescription is for a schedule II opioid drug., 1 application Topically 2 times a day, 1... Start Date: 03/21/21 Status: Ordered clotrimazole 1% topical cream 1 application, Topically, 2 times a day, # 113 Gm, 1 Refills, Maintenance, 03/15/21 13:54:00 EDT, Cream, [facility]/pharmacy #[id number], Partial fill upon patient request if [...] 5 Refills, Maintenance, 03/27/21 10:44:00 EDT, Tablet, [facility], 1 tablet By Mouth Daily,x30 days,Instr:with food, 180, cm, 03/15/21 13:32:00 EDT, Height Start Date: 03/27/21 Stop Date: 09/23/21 Status: Ordered Nasacort Allergy 24HR 55 mcg/inh nasal spray See Instructions, 2 sprays Daily, # 1 each, 1 Refills, Maintenance, 09/25/16 12:12:25 Start Date: 09/25/16 Status: Ordered nystatin topical [id number] u/gm powder 1 application, Topically, 3 times a day, # 60 Gm, 1 Refills, Maintenance, 06/06/21 14:33:00 EDT, Powder, [facility]/pharmacy #[id number], Partial fill upon patient request if the prescription is for a schedule IIopioid drug., 1 application Topically 3 times a day... Start Date: 06/06/21 Status: Ordered prazosin 1 mg oral capsule 3, capsule, By Mouth, Daily at bedtime, # 90 capsule, Refills 11, Tot. Refills 11, 08/09/21 11:17:00 EST, Route to Pharmacy Electronically, [facility]/pharmacy #[id number], 180, cm, 07/11/21 14:47:00 EST, Height [...] 30 tablet, 1 Refills, Maintenance,06/28/21 8:55:00 EDT, [facility]/pharmacy #[id number], 180, cm, 03/15/21 13:32:00 EDT, Height Start Date: 06/28/21 Status: Ordered zolpidem 10 mg oral tablet See Instructions, TAKE ONE TABLET BY MOUTH EVERY NIGHT AT BEDTIME NEEDED FOR SLEEP, # 30 tablet,2 Refills, Maintenance, 08/22/21 12:10:00 EST, [facility], 180, cm, 07/11/21 14:47:00 [...]
--- OUTSIDE RECORDS SUMMARY | 2023-01-16 23:42 | XMS_ITS | Continuity of Care Document ---
Author Name Unknown Organization [facility] Address [address] [place] [address]- Care Team Providers Care Fiscal Specialist Name Role Phone Salomon OLMEDO, Jet Primary Care Physician Encounter [facility] Date(s): 06/05/21 - 07/05/21 [facility] [address] [place], [place] [address] Allergies, Adverse Reactions, Alerts Substance [...] 3Admin Note: recv'd at PCP office in [place] 4Admin Note: afluria 5Admin Note: Flucelvax 6Admin Note: VIS Given 7Result Comment: [08/06/2017] verbal consent obtained, allergies reviewed. Has had flu shot in past with no issues. [facility] flu vaccine sheet given. 8Admin Note: #2 9Admin Note: [facility] Records 10Admin Note: VIS given 11Admin Note: VIS given 12Result Comment: wrong patient 13Admin Note: Dr. Suarez Records 14Admin Note: [facility] Records 15Admin Note: [facility] Records #2 16Admin Note: [facility] Records #1 17Admin Note: [facility] Records Medications buPROPion 150 mg/24 hours (XL) oral tablet, extended release 1 tablet, By Mouth, Daily in AM, # 30 tablet, 1 Refills, 06/28/21 8:50:00 EDT, [facility]/pharmacy #[id number], 30, 1 tablet By Mouth Daily in AM, 180, cm, 03/15/21 13:32:00 EDT, Height Start Date: 06/28/21 Status: Ordered buPROPion 300 mg/24 hours (XL) oral tablet, extended release 1 tablet, By Mouth, Daily, # 30 tablet, 1 Refills, 06/28/21 8:50:00 EDT, [facility]/pharmacy #[id number], 180, cm, 03/15/21 [...] 0 Refills, Maintenance, 03/21/21 14:11:00 EDT, Gel, [facility]/pharmacy #[id number], Partial fill upon patient request if the prescription is for a schedule II opioid drug., 1 application Topically 2 times a day, 1... Start Date: 03/21/21 Status: Ordered clotrimazole 1% topical cream 1 application, Topically, 2 times a day, # 113 Gm, 1 Refills, Maintenance, 03/15/21 13:54:00 EDT, Cream, [facility]/pharmacy #[id number], Partial fill upon [...] = 150 mg, By Mouth, Every week, # 4 tablet, 0 Refills, Acute 05/31/22 12:55:00 EDT, 05/31/21 12:55:00 EDT, Tablet, [facility]/pharmacy #[id number], Partial fill upon patient request if the prescription is for a schedule II opioid drug., 180, cm, 03/15/21... Start Date: 05/31/21 Stop Date: 05/31/22 Status: Ordered Genvoya oral tablet 1 tablet, By Mouth, Daily, with food, # 30 tablet, 5 Refills, Maintenance, 03/27/21 10:44:00 EDT, Tablet, [facility], 1 tablet By Mouth Daily,x30 days,Instr:with food, 180, cm, 03/15/21 13:32:00 EDT, Height Start Date: 03/27/21 Stop Date: 09/23/21 Status: Ordered Nasacort Allergy 24HR 55 mcg/inh nasal spray See Instructions, 2 sprays Daily, # 1 each, 1 Refills, Maintenance, 09/25/16 12:12:25 Start Date: 09/25/16 Status: Ordered nystatin topical [id number] u/gm powder 1 application, Topically, 3 times a day, # 60 Gm, 1 Refills, Maintenance, 06/06/21 14:33:00 EDT, Powder, [facility]/pharmacy #[id number], Partial fill upon patient request if the prescription is for a schedule IIopioid drug., 1 application Topically 3 times a day... Start Date: 06/06/21 Status: Ordered oxyCODONE 5 mg oral tablet 5 mg, 1, tablet, By Mouth, Every 6 hours, PRN, # 28 tablet, Refills 0, Tot. Refills 0, Maintenance,for pain, 11/05/18 10:46:17 EDT, Print Requisition Start Date: 11/05/18 Status: Ordered prazosin 1 mg oral capsule 3, capsule, By Mouth, Daily at bedtime, # 90 capsule, Refills 1, Route to Pharmacy Electronically, [facility], 180, cm, 03/15/21 13:32:00 EDT, [...] capsule, 0 Refills, Maintenance, 06/24/20 17:18:00 EDT, [facility], 180, cm, 03/30/20 15:08:00 EDT, Height, 81.8, kg, 10/28/18 10:39:00 EST, Dry Weight Start Date: 06/24/20 Status: Ordered zolpidem 10 mg oral tablet 1 tablet, By Mouth, Daily at bedtime, PRN NEEDED FOR SLEEP, # 30 tablet, 1 Refills, Maintenance,06/28/21 8:55:00 EDT, [facility]/pharmacy #[id number], 180, cm, 03/15/21 [...]
--- OUTSIDE RECORDS SUMMARY | 2023-01-16 23:42 | XMS_ITS | Continuity of Care Document ---
Author Name Unknown Organization [facility] Address [address] [place] [address]- Care Team Providers Care Professional Employer Consultant Name Role Phone Salomon OLMEDO, [facility] Primary Care Physician [phone] Encounter [facility] Date(s): 05/30/21 - 06/29/21 [facility] [address] [place], [place] [address] Allergies, Adverse Reactions, Alerts Substance Reaction [...] 3Admin Note: recv'd at PCP office in [place] 4Admin Note: afluria 5Admin Note: Flucelvax 6Admin Note: VIS Given 7Result Comment: [08/06/2017] verbal consent obtained, allergies reviewed. Has had flu shot in past with no issues. [facility] flu vaccine sheet given. 8Admin Note: #2 9Admin Note: [facility] Records 10Admin Note: VIS given 11Admin Note: VIS given 12Result Comment: wrong patient 13Admin Note: Dr. Suarez Records 14Admin Note: [facility] Records 15Admin Note: [facility] Records #2 16Admin Note: [facility] Records #1 17Admin Note: [facility] Records Medications buPROPion 150 mg/24 hours (XL) oral tablet, extended release 1 tablet, By Mouth, Daily in AM, # 30 tablet, 1 Refills, 06/28/21 8:50:00 EDT, [facility]/pharmacy #1, 30, 1 tablet By Mouth Daily in AM, 180, cm, 03/15/21 13:32:00 EDT, Height Start Date: 06/28/21 Status: Ordered buPROPion 300 mg/24 hours (XL) oral tablet, extended release 1 tablet, By Mouth, Daily, # 30 tablet, 1 Refills, 06/28/21 8:50:00 EDT, [facility]/pharmacy #[id number], 180, cm, 03/15/21 13:32:00 EDT, [...] Refills, Maintenance, 03/21/21 14:11:00 EDT, Gel, [facility]/pharmacy #[id number], Partial fill upon patient request if the prescription is for a schedule II opioid drug., 1 application Topically 2 times a day, 1... Start Date: 03/21/21 Status: Ordered clotrimazole 1% topical cream 1 application, Topically, 2 times a day, # 113 Gm, 1 Refills, Maintenance, 03/15/21 13:54:00 EDT, Cream, [facility]/pharmacy #[id number], Partial fill upon patient request [...] 05/31/22 12:55:00 EDT, 05/31/21 12:55:00 EDT, Tablet, [facility]/pharmacy #[id number], Partial fill upon patient request if the prescription is for a schedule II opioid drug., 180, cm, 03/15/21... Start Date: 05/31/21 Stop Date: 05/31/22 Status: Ordered Genvoya oral tablet 1 tablet, By Mouth, Daily, with food, # 30 tablet, 5 Refills, Maintenance, 03/27/21 10:44:00 EDT, Tablet, [facility], 1 tablet By Mouth Daily,x30 days,Instr:with food, 180, cm, 03/15/21 13:32:00 EDT, Height Start Date: 03/27/21 Stop Date: 09/23/21 Status: Ordered Nasacort Allergy 24HR 55 mcg/inh nasal spray See Instructions, 2 sprays Daily, # 1 each, 1 Refills, Maintenance, 09/25/16 12:12:25 Start Date: 09/25/16 Status: Ordered nystatin topical 935193 u/gm powder 1 application, Topically, 3 times a day, # 60 Gm, 1 Refills, Maintenance, 06/06/21 14:33:00 EDT, Powder, [facility]/pharmacy #[id number], Partial fill upon patient request [...] capsule, Refills 1, Route to Pharmacy Electronically, [facility], 180, cm, 03/15/21 13:32:00 EDT, [...] capsule, 0 Refills, Maintenance, 06/24/20 17:18:00 EDT, [facility], 180, cm, 03/30/20 15:08:00 EDT, [...]
--- OUTSIDE RECORDS SUMMARY | 2023-01-16 23:42 | XMS_ITS | Continuity of Care Document ---
Author Name Unknown Organization [facility] Address [address] [place] [address]- Care Team Providers Care Hardwood Floor Finisher Name Role Phone Salomon OLMEDO, Richa Primary Care Physician Encounter [facility] Date(s): 12/26/21 - 01/25/22 [facility] [address] [place] [id number] Allergies, Adverse Reactions, Alerts Substance [...] 3Admin Note: recv'd at PCP office in [place] 4Admin Note: afluria 5Admin Note: Flucelvax 6Admin Note: VIS Given 7Result Comment: [08/06/2017] verbal consent obtained, allergies reviewed. Has had flu shot in past with no issues. [facility] flu vaccine sheet given. 8Admin Note: #2 9Admin Note: [facility] Records 10Admin Note: VIS given 11Admin Note: VIS given 12Result Comment: wrong patient 13Admin Note: Dr. Suarez Records 14Admin Note: [facility] Records 15Admin Note: [facility] Records #2 16Admin Note: [facility] Records #1 17Admin Note: [facility] Records Medications buPROPion 150 mg/24 hours (XL) oral tablet, extended release See Instructions, TAKE 1 TABLET BY MOUTH EVERY MORNING, # 30 tablet, 1 Refills, 12/08/21 6:01:00 EDT, [facility], 30, TAKE 1 TABLET BY MOUTH EVERY MORNING, 180, cm, 07/11/21 14:47:00EST, Height Start Date: 12/08/21 Status: Ordered buPROPion 300 mg/24 hours (XL) oral tablet, extended release See Instructions, TAKE 1 TABLET BY MOUTH EVERY DAY, # 30 tablet, 1 Refills, 12/08/21 6:01:00 EDT, [facility], 180, cm, 07/11/21 14:47:00 EST, Height Start Date: 12/08/21 Status: Ordered busPIRone 5 mg oral tablet 5 mg, 1, tablet, By Mouth, 2 times a day, for 30 days, # 60 tablet, Refills 1, Tot. Refills 1, Physician Stop 02/06/22 6:00:00 EDT, 12/08/21 6:00:00 EDT, Route to Pharmacy Electronically, [facility], 180, cm, 07/11/21 14:47:00 EST, He... Start Date: 12/08/21 Stop Date: 02/06/22 Status: Ordered clindamycin 1% topical gel 1 application, Topically, 2 times a day, # 60 Gm, 0 Refills, Maintenance, 03/21/21 14:11:00 EDT, Gel, [facility]/pharmacy #[id number], Partial fill upon patient request if the prescription is for a schedule II opioid drug., 1 application Topically 2 times a day, 1... Start Date: 03/21/21 Status: Ordered clotrimazole 1% topical cream 1 application, Topically, 2 times a day, # 113 Gm, 1 Refills, Maintenance, 03/15/21 13:54:00 EDT, Cream, [facility]/pharmacy #[id number], Partial fill upon patient request if [...] 5 Refills, Maintenance, 11/20/21 10:48:00 EDT, Tablet, [facility], 1 tablet By Mouth Daily,x30 days,Instr:with food, 180, cm, 07/11/21 14:47:00 EST, Height Start Date: 11/20/21 Stop Date: 05/19/22 Status: Ordered Nasacort Allergy 24HR 55 mcg/inh nasal spray See Instructions, 2 sprays Daily, # 1 each, 1 Refills, Maintenance, 09/25/16 12:12:25 Start Date: 09/25/16 Status: Ordered nystatin topical 654904 u/gm powder 1 application, Topically, 3 times a day, # 60 Gm, 1 Refills, Maintenance, 06/06/21 14:33:00 EDT, Powder, [facility]/pharmacy #[id number], Partial fill upon patient request if the prescription is for a schedule IIopioid drug., 1 application Topically 3 times a day... Start Date: 06/06/21 Status: Ordered selenium sulfide 2.5% topical lotion See Instructions, Topically Daily to affected area on face, # 120 mL, 2 Refills, Maintenance, 01/23/22 14:28:00 EDT, [facility]/pharmacy #[id number], Partial fill upon patient request if the prescription is for aschedule II opioid drug., Topically Daily; to affe... Start Date: 01/23/22 Status: Ordered Vistaril pamoate 25 mg oral capsule See Instructions, PRN as needed for anxiety, take 1-2 caps po bid prn for anxiety or insomnia. Max 4 caps/day, # 120 capsule, 1 Refills, Maintenance, 12/08/21 6:01:00 EDT, [facility], 180, cm, 07/11/21 14:47:00 EST, Height Start Date: 12/08/21 Status: Ordered zolpidem 10 mg oral tablet See Instructions, TAKE ONE TABLET BY MOUTH EVERY NIGHT AT BEDTIME NEEDED FOR SLEEP, # 30 tablet,1 Refills, Maintenance, 10/26/21 17:15:00 EST, [facility], 180, cm, 07/11/21 14:47:00 EST, Height Start Date: 10/26/21 Status: Ordered zolpidem 10 mg oral tablet See Instructions, TAKE ONE TABLET BY MOUTH EVERY NIGHT AT BEDTIME NEEDED FOR SLEEP, # 30 tablet,1 Refills, Maintenance, 12/08/21 6:04:00 EDT, [facility], 180, cm, 07/11/21 14:47:00 EST, Height Start Date: 12/08/21 Status: Ordered ZyrTEC 10 mg oral tablet 1 tablet = 10 mg, By Mouth, Daily, # 30 tablet, 11 Refills, Maintenance, 01/23/22 14:27:00 EDT, Tablet, [facility]pharmacy #[id number], 180, cm, 01/23/22 14:19:00 EDT, Height [...]
--- OUTSIDE RECORDS SUMMARY | 2023-01-16 23:42 | XMS_ITS | Continuity of Care Document ---
Author Name Unknown Organization [facility] Address [address] [place] [address]- Care Team Providers Care Machine Stemmer Name Role Phone Salomon OLMEDO, Jet Primary Care Physician [facility]counter [facility] Date(s): 07/04/22 - 08/03/22 [facility] [address] [place], [place] [address] Allergies, Adverse Reactions, Alerts Substance Reaction [...] 3Admin Note: recv'd at PCP office in [place] 4Admin Note: afluria 5Admin Note: Flucelvax 6Admin Note: VIS Given 7Result Comment: [08/06/2017] verbal consent obtained, allergies reviewed. Has had flu shot in past with no issues. [facility] flu vaccine sheet given. 8Admin Note: #2 9Admin Note: [facility] Records 10Admin Note: VIS given 11Admin Note: VIS given 12Result Comment: wrong patient 13Admin Note: Dr. Suarez Records 14Admin Note: [facility] Records 15Admin Note: [facility] Records #2 16Admin Note: [facility] Records #1 17Admin Note: [facility] Records Medications buPROPion 150 mg/24 hours (XL) oral tablet, extended release See Instructions, TAKE 1 TABLET BY MOUTH EVERY MORNING, # 30 tablet, 2 Refills, 07/04/22 12:32:00 EST, [facility], 30, TAKE 1 TABLET BY MOUTH EVERY MORNING, 180, cm, 06/29/22 9:00:00EDT, Height Start Date: 07/04/22 Status: Ordered buPROPion 300 mg/24 hours (XL) oral tablet, extended release See Instructions, TAKE 1 TABLET BY MOUTH EVERY DAY, # 30 tablet, 2 Refills, 07/04/22 12:31:00 EST, [facility], 180, cm, 06/29/22 9:00:00 EDT, Height Start Date: 07/04/22 Status: Ordered busPIRone 5 mg oral tablet See Instructions, Take 1 tab qam po and 2 tabs qhs, # 180 tablet, Refills 2, Tot. Refills 2, 07/04/22 12:31:00 EST, Instructions Replace Required Details, Route to Pharmacy Electronically, [facility], 180, cm, 06/29/22 9:00:00 [...] 5 Refills, Maintenance, 05/09/22 11:02:00 EDT, Tablet, [facility], 1 tablet By Mouth Daily,x30 days,Instr:with [...] Replace Required Details, Route to Pharmacy Electronically, [facility], 180, cm, 06/29/22... Start Date: 07/04/22 [...] 30 tablet,2 Refills, Maintenance, 07/04/22 12:32:00 EST, [facility], 180, cm, 06/29/22 9:00:00 EDT, Height Start Date: 07/04/22 Status: Ordered zolpidem 10 mg oral tablet See Instructions, TAKE ONE TABLET BY MOUTH EVERY NIGHT AT BEDTIME NEEDED FOR SLEEP, # 30 tablet,2 Refills, Maintenance, 03/08/22 9:53:00 EDT, [facility], 180, cm, 01/23/22 14:19:00 EDT, Height Start Date: 03/08/22 Status: Ordered zolpidem 10 mg oral tablet See Instructions, TAKE ONE TABLET BY MOUTH EVERY NIGHT AT BEDTIME NEEDED FOR SLEEP, # 30 tablet,1 Refills, Maintenance, 12/08/21 6:04:00 EDT, [facility], 180, cm, 07/11/21 14:47:00 EST, Height Start Date: 12/08/21 Status: Ordered ZyrTEC 10 mg oral tablet 1 tablet = 10 mg, By Mouth, Daily, # 30 tablet, 11 Refills, Maintenance, 01/23/22 14:27:00 EDT, Tablet, [facility]/pharmacy #[id number], 180, cm, 01/23/22 [...] Team Personnel Name: Jet Latif MD Position: [facility] Primary Care Physician Member Role: PCP Address: Address: [address] [place] [address]- Name: Kashif Chamberlain MD Position: [facility] Infectious Disease MD Member Role: Lifetime Consulting Physician Address: Address: [address] [facility] [place] [address]- Care Team Related Persons Name: ANNA IBARRA Address: home [address] [place] [address]
--- OUTSIDE RECORDS SUMMARY | 2023-01-16 23:42 | XMS_ITS | Continuity of Care Document ---
Author Name Unknown Organization [facility] Address [address] [place] [address]- Care Team Providers Care Superior Court Judge Name Role Phone Susu Jules MD Primary Care Physician [phone] Encounter [facility] Date(s): 09/30/20 - 10/30/20 [facility] [address] [place], [place] [address] Attending Physician: Karen Bowser Admitting Physician: AdmtrKaren Referring Physician: Admtr, Ar8 Allergies, Adverse Reactions, Alerts [...] 3Admin Note: recv'd at PCP office in [place] 4Admin Note: afluria 5Admin Note: Flucelvax 6Admin Note: VIS Given 7Result Comment: [08/06/2017] verbal consent obtained, allergies reviewed. Has had flu shot in past with no issues. [facility] flu vaccine sheet given. 8Admin Note: #2 9Admin Note: [facility] Records 10Admin Note: VIS given 11Admin Note: VIS given 12Result Comment: wrong patient 13Admin Note: Dr. Suarez Records 14Admin Note: [facility] Records 15Admin Note: [facility] Records #2 16Admin Note: [facility] Records #1 17Admin Note: [facility] Records Medications [facility] intramuscular suspension 0.5 mL, Intramuscular, Once, # 0.5 mL, 0 Refills, Soft Stop, 07/10/16 12:13:00 Start Date: 07/10/16 Status: Ordered [facility] intramuscular suspension 0.5 mL, Intramuscular, Once, [...] tablet, 1 Refills, Maintenance, 07/07/20 16:56:00 EST, [facility], 1 tablet By Mouth Daily in AM,Instr:take with 300 mg tab for total o... Start Date: 07/07/20 Status: Ordered buPROPion 300 mg/24 hours (XL) oral tablet, extended release See Instructions, TAKE ONE TABLET BY MOUTH ONCE DAILY, # 90 tablet, 1 Refills, Maintenance, [facility], 180, cm, 03/30/20 15:08:00 EDT, Height, [...] 03/03/14 Stop Date: 07/01/14 Status: Ordered Flucelvax 5800-0416 intramuscular suspension 0.5 mL, Intramuscular, Once, # 0.5 mL, 0 Refills, Soft Stop, 09/13/15 14:14:54 Start Date: 09/13/15 Status: Ordered Genvoya oral tablet 1 tablet, By Mouth, Daily, with food, # 30 tablet, 5 Refills, Maintenance, 09/13/20 10:33:00 EST, Tablet, [facility], 1 tablet By Mouth Daily,x30 [...] 07/07/20 16:41:00 EST, Route to Pharmacy Electronically, [facility], please cancel any other prazosin... [...] capsule, 0 Refills, Maintenance, 06/24/20 17:18:00 EDT, [facility], 180, cm, 03/30/20 15:08:00 EDT, Height, 81.8, kg, 10/28/18 10:39:00 EST, Dry Weight Start Date: 06/24/20 Status: Ordered zolpidem 10 mg oral tablet See Instructions, TAKE ONE TABLET BY MOUTH AT BEDTIME NEEDED FOR SLEEP, # 30 tablet, 0 Refills, Maintenance, 10/17/20 17:41:00 EST, [facility], 180, cm, 03/30/20 15:08:00 EDT, Height, 81.8, kg, 10/28/18 10:39:00 EST, Dry Weight Start Date: 10/17/20 Status: Ordered ZyrTEC 10 mg oral tablet [...]
--- OUTSIDE RECORDS SUMMARY | 2023-01-16 23:42 | XMS_ITS | Continuity of Care Document ---
Author Name Unknown Organization [facility] Address [address] [place] [address]- Care Team Providers Care Manager Of Change Name Role Phone Salomon OLMEDO, [facility] Primary Care Physician [phone] Encounter [facility] Date(s): 08/21/22 - 09/20/22 [facility] [address] [place] [address] Attending Physician: Admtr, Ar8 Allergies, Adverse Reactions, [...] virus vaccine, inactivated 4 06/06/10 Gi lamar [id number] 12y+ bivalent booster vax 06/29/22 Recorded SARS-CoV-2 [...] 1Admin Note: recv'd at PCP office in [place] 2Admin Note: afluria 3Admin Note: Flucelvax 4Admin Note: VIS Given 5Admin Note: MENVEO #2 dose VIS GIVEN 6Admin Note: MENVEO 7Result Comment: [08/06/2017] verbal consent obtained, allergies reviewed. Has had flu shot in past with no issues. [facility] flu vaccine sheet given. 8Admin Note: #2 9Admin Note: [facility] Records 10Admin Note: VIS given 11Admin Note: VIS given 12Result Comment: wrong patient 13Admin Note: Dr. Suarez Records 14Admin Note: [facility] Records 15Admin Note: [facility] Records #2 16Admin Note: [facility] Records #1 17Admin Note: [facility] Records Medications buPROPion 150 mg/24 hours (XL) oral tablet, extended release See Instructions, TAKE 1 TABLET BY MOUTH EVERY MORNING, # 30 tablet, 2 Refills, 07/04/22 12:32:00 EST, [facility], 30, TAKE 1 TABLET BY MOUTH EVERY MORNING, 180, cm, 06/29/22 9:00:00EDT, Height Start Date: 07/04/22 Status: Ordered buPROPion 300 mg/24 hours (XL) oral tablet, extended release See Instructions, TAKE 1 TABLET BY MOUTH EVERY DAY, # 30 tablet, 2 Refills, 07/04/22 12:31:00 EST, [facility], 180, cm, 06/29/22 9:00:00 EDT, Height Start Date: 07/04/22 Status: Ordered busPIRone 5 mg oral tablet See Instructions, Take 1 tab qam po and 2 tabs qhs, # 180 tablet, Refills 2, Tot. Refills 2, 07/04/22 12:31:00 EST, Instructions Replace Required Details, Route to Pharmacy Electronically, [facility], 180, cm, 06/29/22 9:00:00 EDT, He... [...] 5 Refills, Maintenance, 05/09/22 11:02:00 EDT, Tablet, [facility], 1 tablet By Mouth Daily,x30 [...] Replace Required Details, Route to Pharmacy Electronically, [facility], 180, cm, 06/29/22... Start Date: 07/04/22 Status: Ordered Vistaril pamoate 25 mg oral capsule See Instructions, PRN as needed for anxiety, take 1-2 caps po bid prn for anxiety or insomnia. Max 4 caps/day, # 120 capsule, 2 Refills, Maintenance, 07/04/22 12:32:00 EST, [facility], 180, cm, 06/29/22 9:00:00 EDT, Height Start Date: 07/04/22 Status: Ordered zolpidem 10 mg oral tablet See Instructions, TAKE ONE TABLET BY MOUTH EVERY NIGHT AT BEDTIME NEEDED FOR SLEEP, # 30 tablet,2 Refills, Maintenance, 07/04/22 12:32:00 EST, [facility], 180, cm, 06/29/22 9:00:00 EDT, Height Start Date: 07/04/22 Status: Ordered zolpidem 10 mg oral tablet See Instructions, TAKE ONE TABLET BY MOUTH EVERY NIGHT AT BEDTIME NEEDED FOR SLEEP, # 30 tablet,2 Refills, Maintenance, 03/08/22 9:53:00 EDT, [facility], 180, cm, 01/23/22 14:19:00 EDT, Height Start Date: 03/08/22 Status: Ordered zolpidem 10 mg oral tablet See Instructions, TAKE ONE TABLET BY MOUTH EVERY NIGHT AT BEDTIME NEEDED FOR SLEEP, # 30 tablet,1 Refills, Maintenance, 12/08/21 6:04:00 EDT, [facility], 180, cm, 07/11/21 14:47:00 EST, Height Start Date: 12/08/21 Status: Ordered ZyrTEC 10 mg oral tablet 1 tablet = 10 mg, By Mouth, Daily, # 30 tablet, 11 Refills, Maintenance, 01/23/22 14:27:00 EDT, Tablet, [facility]/pharmacy #[id number], 180, cm, 01/23/22 [...] Team Personnel Name: Jet Latif MD Position: [facility] Primary Care Physician Member Role: PCP Address: Address: [address] [place] [address] Adult & [place] [address]- Name: Kashif Chamberlain MD Position: [facility] Infectious Disease MD Member Role: Lifetime Consulting Physician Address: Address: [address] [place] [address] [place] [address]- Care Team Related Persons Name: ANNA IBARRA Address: home [address] [place] [address]
--- OUTSIDE RECORDS SUMMARY | 2023-01-16 23:42 | XMS_ITS | Continuity of Care Document ---
Author Name Unknown Organization [facility] Address [address] [place] [address]- Care Team Providers Care Can Vacuum Tester Name Role Phone Salomon OLMEDO, Jet Primary Care Physician Encounter [facility] Date(s): 04/06/22 - 05/24/22 [facility] [address]- Attending Physician: Maryam Lundberg NP Admitting Physician: Maryam Lundberg NP Allergies, Adverse Reactions, Alerts Substance Reaction Severity [...] 3Admin Note: recv'd at PCP office in [place] 4Admin Note: afluria 5Admin Note: Flucelvax 6Admin Note: VIS Given 7Result Comment: [08/06/2017] verbal consent obtained, allergies reviewed. Has had flu shot in past with no issues. [facility] flu vaccine sheet given. 8Admin Note: #2 9Admin Note: [facility] Records 10Admin Note: VIS given 11Admin Note: VIS given 12Result Comment: wrong patient 13Admin Note: Dr. Suarez Records 14Admin Note: [facility] Records 15Admin Note: [facility] Records #2 16Admin Note: [facility] Records #1 17Admin Note: [facility] Records Medications buPROPion 150 mg/24 hours (XL) oral tablet, extended release See Instructions, TAKE 1 TABLET BY MOUTH EVERY MORNING, # 30 tablet, 2 Refills, 03/08/22 9:52:00 EDT, [facility], 30, TAKE 1 TABLET BY MOUTH EVERY MORNING, 180, cm, 01/23/22 14:19:00EDT, Height Start Date: 03/08/22 Status: Ordered buPROPion 300 mg/24 hours (XL) oral tablet, extended release See Instructions, TAKE 1 TABLET BY MOUTH EVERY DAY, # 30 tablet, 2 Refills, 03/08/22 9:52:00 EDT, [facility], 180, cm, 01/23/22 14:19:00 EDT, Height Start Date: 03/08/22 Status: Ordered busPIRone 5 mg oral tablet See Instructions, Take 1 tab qam po and 2 tabs qhs, # 180 tablet, Refills 2, Tot. Refills 2, 03/08/22 9:51:00 EDT, Instructions Replace Required Details, Route to Pharmacy Electronically, [facility], 180, cm, 01/23/22 14:19:00 EDT, He... Start Date: 03/08/22 Status: Ordered clindamycin 1% topical gel 1 application, Topically, 2 times a day, # 60 Gm, 0 Refills, Maintenance, 03/21/21 14:11:00 EDT, Gel, [facility]/pharmacy #[id number], Partial fill upon patient request if the prescription is for a schedule II opioid drug., 1 application Topically 2 times a day, 1... Start Date: 03/21/21 Status: Ordered clotrimazole 1% topical cream 1 application, Topically, 2 times a day, # 113 Gm, 1 Refills, Maintenance, 03/15/21 13:54:00 EDT, Cream, [facility]/pharmacy #[id number], Partial fill upon patient request [...] 5 Refills, Maintenance, 05/09/22 11:02:00 EDT, Tablet, [facility], 1 tablet By Mouth Daily,x30 days,Instr:with food, 180, cm, 01/23/22 14:19:00 EDT, Height Start Date: 05/09/22 Stop Date: 11/05/22 Status: Ordered Nasacort Allergy 24HR 55 mcg/inh nasal spray See Instructions, 2 sprays Daily, # 1 each, 1 Refills, Maintenance, 09/25/16 12:12:25 Start Date: 09/25/16 Status: Ordered nystatin topical [id number] u/gm powder 1 application, Topically, 3 times a day, # 60 Gm, 1 Refills, Maintenance, 06/06/21 14:33:00 EDT, Powder, [facility]/pharmacy #[id number], Partial fill upon patient request if the prescription is for a schedule IIopioid drug., 1 application Topically 3 times a day... Start Date: 06/06/21 Status: Ordered prazosin 1 mg oral capsule See Instructions, TAKE 4 CAPSULES BY MOUTH ONCE DAILY AT BEDTIME, # 120 capsule, Refills 2, Tot. Refills 2, Instructions Replace Required Details, [facility] to Pharmacy Electronically, [facility], 180, cm, 01/23/22 14:19:00 EDT, Height Start Date: 03/08/22 Status: Ordered Vistaril pamoate 25 mg oral capsule See Instructions, PRN as needed for anxiety, take 1-2 caps po bid prn for anxiety or insomnia. Max 4 caps/day, # 120 capsule, 1 Refills, Maintenance, 12/08/21 6:01:00 EDT, [facility], 180, cm, 07/11/21 14:47:00 EST, Height Start Date: 12/08/21 Status: Ordered zolpidem 10 mg oral tablet See Instructions, TAKE ONE TABLET BY MOUTH EVERY NIGHT AT BEDTIME NEEDED FOR SLEEP, # 30 tablet,2 Refills, Maintenance, 03/08/22 9:53:00 EDT, [facility], 180, cm, 01/23/22 14:19:00 EDT, Height Start Date: 03/08/22 Status: Ordered zolpidem 10 mg oral tablet See Instructions, TAKE ONE TABLET BY MOUTH EVERY NIGHT AT BEDTIME NEEDED FOR SLEEP, # 30 tablet,1 Refills, Maintenance, 10/26/21 17:15:00 EST, [facility], 180, cm, 07/11/21 14:47:00 EST, Height Start Date: 10/26/21 Status: Ordered zolpidem 10 mg oral tablet See Instructions, TAKE ONE TABLET BY MOUTH EVERY NIGHT AT BEDTIME NEEDED FOR SLEEP, # 30 tablet,1 Refills, Maintenance, 12/08/21 6:04:00 EDT, [facility], 180, cm, 07/11/21 14:47:00 EST, Height Start Date: 12/08/21 Status: Ordered ZyrTEC 10 mg oral tablet 1 tablet = 10 mg, By Mouth, Daily, # 30 tablet, 11 Refills, Maintenance, 01/23/22 14:27:00 EDT, Tablet, [facility]/pharmacy #[id number], 180, cm, 01/23/22 14:19:00 EDT, [...] Personnel Name: Jet Latif MD Address: Address: [address] [place] [address] Adult & Pediatric Medicine [address]
--- OUTSIDE RECORDS SUMMARY | 2023-01-16 23:42 | XMS_ITS | Continuity of Care Document ---
Author Name Unknown Organization [facility] Address [address] [place] [address]- Care Team Providers Care Wood Drill Operator Name Role Phone Susu Jules MD Primary Care Physician [phone] Encounter [facility] Date(s): 01/20/20 - 01/27/20 [facility] [address] [place] [id number]- [facility] Attending Physician: Kashif Chamberlain MD Referring Physician: Susu Jules MD Allergies, [...] 3Admin Note: recv'd at PCP office in [place] 4Admin Note: afluria 5Admin Note: Flucelvax 6Admin Note: VIS Given 7Result Comment: [08/06/2017] verbal consent obtained, allergies reviewed. Has had flu shot in past with no issues. [facility] flu vaccine sheet given. 8Admin Note: #2 9Admin Note: [facility] Records 10Admin Note: VIS given 11Admin Note: VIS given 12Result Comment: wrong patient 13Admin Note: Dr. Suarez Records 14Admin Note: [facility] Records 15Admin Note: [facility] Records #2 16Admin Note: [facility] Records #1 17Admin Note: [facility] Records Medications [facility] intramuscular suspension 0.5 mL, Intramuscular, Once, # 0.5 mL, 0 Refills, Soft Stop, 07/10/16 12:13:00 Start Date: 07/10/16 Status: Ordered [facility] intramuscular suspension 0.5 mL, Intramuscular, Once, # 0.5 mL, 0 Refills, Soft Stop, 08/06/17 13:28:00 Start Date: 08/06/17 Status: Ordered Ambien 10 mg oral tablet 1 tablet = 10 mg, By Mouth, Daily at bedtime, PRN as needed for sleep, # 30 tablet, 1 Refills, Maintenance, 11/11/19 15:46:00 EDT, Tablet, [facility], 180, cm, 06/24/19 9:51:00 [...] 90 tablet, 1 Refills, Maintenance, 11/11/19 15:45:00EDT, [facility], 180, cm, 06/24/19 9:51:00 [...] 03/03/14 Stop Date: 07/01/14 Status: Ordered Flucelvax [id number] intramuscular suspension 0.5 mL, Intramuscular, Once, # 0.5 mL, 0 Refills, Soft Stop, 09/13/15 14:14:54 Start Date: 09/13/15 Status: Ordered Genvoya oral tablet 1 tablet, By Mouth, Daily, with food, # 30 tablet, 5 Refills, Maintenance, 01/04/20 16:38:00 EDT, Tablet, [facility], 1 tablet By Mouth Daily,x30 [...]
--- OUTSIDE RECORDS SUMMARY | 2023-01-16 23:42 | XMS_ITS | Continuity of Care Document ---
Author Name Unknown Organization [facility] Address [address] [place] [address]- Care Team Providers Care Music Researcher Name Role Phone Salomon OLMEDO, Jet Primary Care Physician Encounter [facility] Date(s): 06/27/22 - 07/27/22 [facility] [address] [place] [id number]- Allergies, Adverse Reactions, Alerts Substance Reaction Severity [...] 3Admin Note: recv'd at PCP office in [place] 4Admin Note: afluria 5Admin Note: Flucelvax 6Admin Note: VIS Given 7Result Comment: [08/06/2017] verbal consent obtained, allergies reviewed. Has had flu shot in past with no issues. [facility] flu vaccine sheet given. 8Admin Note: #2 9Admin Note: [facility] Records 10Admin Note: VIS given 11Admin Note: VIS given 12Result Comment: wrong patient 13Admin Note: Dr. Suarez Records 14Admin Note: [facility] Records 15Admin Note: [facility] Records #2 16Admin Note: [facility] Records #1 17Admin Note: [facility] Records Medications buPROPion 150 mg/24 hours (XL) oral tablet, extended release See Instructions, TAKE 1 TABLET BY MOUTH EVERY MORNING, # 30 tablet, 2 Refills, 07/04/22 12:32:00 [facility], [facility], 30, TAKE 1 TABLET BY MOUTH EVERY MORNING, 180, cm, 06/29/22 9:00:00EDT, Height Start Date: 07/04/22 Status: Ordered buPROPion 300 mg/24 hours (XL) oral tablet, extended release See Instructions, TAKE 1 TABLET BY MOUTH EVERY DAY, # 30 tablet, 2 Refills, 07/04/22 12:31:00 EST, [facility], 180, cm, 06/29/22 9:00:00 EDT, Height Start Date: 07/04/22 Status: Ordered busPIRone 5 mg oral tablet See Instructions, Take 1 tab qam po and 2 tabs qhs, # 180 tablet, Refills 2, Tot. Refills 2, 07/04/22 12:31:00 EST, Instructions Replace Required Details, Route to Pharmacy Electronically, [facility], 180, cm, 06/29/22 9:00:00 EDT, [...] 5 Refills, Maintenance, 05/09/22 11:02:00 EDT, Tablet, [facility], 1 tablet By Mouth Daily,x30 [...] Replace Required Details, Route to Pharmacy Electronically, [facility], 180, cm, 06/29/22... Start Date: 07/04/22 Status: Ordered Vistaril pamoate 25 mg oral capsule See Instructions, PRN as needed for anxiety, take 1-2 caps po bid prn for anxiety or insomnia. Max 4 caps/day, # 120 capsule, 2 Refills, Maintenance, 07/04/22 12:32:00 EST, [facility], 180, cm, 06/29/22 9:00:00 EDT, Height Start Date: 07/04/22 Status: Ordered zolpidem 10 mg oral tablet See Instructions, TAKE ONE TABLET BY MOUTH EVERY NIGHT AT BEDTIME NEEDED FOR SLEEP, # 30 tablet,2 Refills, Maintenance, 07/04/22 12:32:00 EST, [facility], 180, cm, 06/29/22 9:00:00 EDT, Height Start Date: 07/04/22 Status: Ordered zolpidem 10 mg oral tablet See Instructions, TAKE ONE TABLET BY MOUTH EVERY NIGHT AT BEDTIME NEEDED FOR SLEEP, # 30 tablet,2 Refills, Maintenance, 03/08/22 9:53:00 EDT, [facility], 180, cm, 01/23/22 14:19:00 EDT, Height Start Date: 03/08/22 Status: Ordered zolpidem 10 mg oral tablet See Instructions, TAKE ONE TABLET BY MOUTH EVERY NIGHT AT BEDTIME NEEDED FOR SLEEP, # 30 tablet,1 Refills, Maintenance, 12/08/21 6:04:00 EDT, [facility], 180, cm, 07/11/21 14:47:00 EST, Height Start Date: 12/08/21 Status: Ordered ZyrTEC 10 mg oral tablet 1 tablet = 10 mg, By Mouth, Daily, # 30 tablet, 11 Refills, Maintenance, 01/23/22 14:27:00 EDT, Tablet, [facility]/pharmacy #[id number], 180, cm, 01/23/22 14:19:00 EDT, Height [...] Care Physician Member Role: PCP Address: Address: [address] [place] [address]- Name: Kashif Chamberlain MD Position: [facility] MD Member Role: Lifetime Consulting Physician Address: Address: [address] [facility] [place] [address]- Care Team Related Persons Name: ANNA IBARRA Address: home [address] [place] [id number]
--- OUTSIDE RECORDS SUMMARY | 2023-01-16 23:42 | XMS_ITS | Continuity of Care Document ---
Author Name Unknown Organization [facility] Address [address] [place] [address]- Care Team Providers Care Handcrew Foreman Name Role Phone Not on Staff, PCP Primary Care Physician Unavail able Encounter [facility] Date(s): 01/10/21 - 02/09/21 [facility] [address] [place] [id number] Attending Physician: Admtr, Ar8 Allergies, Adverse [...] 3Admin Note: recv'd at PCP office in [place] 4Admin Note: afluria 5Admin Note: Flucelvax 6Admin [facility] 15Admin Note: [facility] Records #2 16Admin Note: [facility] Records #1 17Admin Note: [facility] Records Medications [facility] [...] 30 tablet, 1Refills, Maintenance, 01/04/21 15:13:00 EDT, [facility], 30, TAKE 1 TABLET BY [...] Replace Required Details, Route to Pharmacy Electronically, [facility], Partial... Start Date: 02/02/21 Status: Ordered [...] 03/03/14 Stop Date: 07/01/14 Status: Ordered Flucelvax [id number] intramuscular suspension 0.5 mL, Intramuscular, Once, # 0.5 mL, 0 Refills, Soft Stop, 09/13/15 14:14:54 Start Date: 09/13/15 Status: Ordered Genvoya oral tablet 1 tablet, By Mouth, Daily, with food, # 30 tablet, 5 Refills, Maintenance, 09/13/20 10:33:00 EST, Tablet, [facility], 1 tablet By Mouth [...] 01/04/21 15:13:00 EDT, Route to Pharmacy Electronically, [facility], 180, cm, 03/30/20 15:08:00 EDT, [...] capsule, 0 Refills, Maintenance, 06/24/20 17:18:00 EDT, [facility], 180, cm, 03/30/20 15:08:00 EDT, Height, 81.8, kg, 10/28/18 10:39:00 EST, Dry Weight Start Date: 06/24/20 Status: Ordered zolpidem 10 mg oral tablet See Instructions, TAKE ONE TABLET BY MOUTH EVERY NIGHT AT BEDTIME NEEDED FOR SLEEP, # 30 tablet,1 Refills, Maintenance, 01/04/21 15:13:00 EDT, [facility], 180, cm, 03/30/20 15:08:00 EDT, Height Start Date: 01/04/21 Status: Ordered zolpidem 10 mg oral tablet 1 tablet, By Mouth, Daily at bedtime, PRN NEEDED FOR SLEEP, # 30 tablet, 1 Refills, Maintenance,11/11/20 15:50:00 EDT, [facility], 180, cm, 03/30/20 15:08:00 [...]
--- OUTSIDE RECORDS SUMMARY | 2023-01-16 23:42 | XMS_ITS | Continuity of Care Document ---
Author Name Unknown Organization [facility] Address [address] [place] [address]- Care Team Providers Care Heavy Mobile Equipment Repairer Name Role Phone Susu Jules MD Primary Care Physician Encounter [facility] [place] Date(s): 03/30/20 - 04/06/20 [facility] [address] [place] [address]- [facility] Attending Physician: Neel Tom MD Referring Physician: [...] 3Admin Note: recv'd at PCP office in [place] 4Admin Note: afluria 5Admin Note: Flucelvax 6Admin Note: VIS Given 7Result Comment: [08/06/2017] verbal consent obtained, allergies reviewed. Has had flu shot in past with no issues. [facility] flu vaccine sheet given. 8Admin Note: #2 9Admin Note: [facility] Records 10Admin Note: VIS given 11Admin Note: VIS given 12Result Comment: wrong patient 13Admin Note: Dr. Suarez Records 14Admin Note: [facility] Records 15Admin Note: [facility] Records #2 16Admin Note: [facility] Records #1 17Admin Note: [facility] Records Medications [facility] intramuscular suspension 0.5 mL, Intramuscular, Once, # 0.5 mL, 0 Refills, Soft Stop, 07/10/16 12:13:00 Start Date: 07/10/16 Status: [id number] 0.5 mL, Intramuscular, Once, # 0.5 mL, 0 Refills, Soft Stop, 08/06/17 13:28:00 Start Date: 08/06/17 Status: Ordered Ambien 10 mg oral tablet 1 tablet = 10 mg, By Mouth, Daily at bedtime, PRN as needed for sleep, lathe turner reviewed, # 30 tablet, 2Refills, Maintenance, 02/18/20 10:49:00 EDT, Tablet, [facility], 180, cm, :51:00 EDT, Height, [...] 90 tablet, 1 Refills, Maintenance, 11/11/19 15:45:00EDT, [facility], 180, cm, 06/24/19 9:51:00 [...] 03/03/14 Stop Date: 07/01/14 Status: Ordered Flucelvax [id number] intramuscular suspension 0.5 mL, Intramuscular, Once, # 0.5 mL, 0 Refills, Soft Stop, 09/13/15 14:14:54 Start Date: 09/13/15 Status: Ordered Genvoya oral tablet 1 tablet, By Mouth, Daily, with food, # 30 tablet, 5 Refills, Maintenance, 01/04/20 16:38:00 EDT, Tablet, [facility], 1 tablet By Mouth [...] oldest [Reference Range]: 1 Height 180 cm (03/30/20 3:08 PM) Oxygen Saturation [94-100 %] 98 % (03/30/20 3:08 PM) Pulse Rate [55-90 bpm] 116 bpm *H* (03/30/20 3:08 PM) Blood Pressure [90-138/55-84 mm Hg] 128/ 95mm Hg (03/30/20 3:08 PM) Respiratory Rate [16-30 br/min] 19 br/mi n (03/30/20 3:08 PM) Mode of Delivery (Oxygen) Room air (03/30/20 3:08 PM) Blood pressure sites Arm, left (03/30/20 3:08 PM) Temperature Route Temporal (03/30/20 3:08 PM) Social History Social History Type Response Smoking Status Former smoker; Tobac co user in household: No entered on: 09/29/13 Sex
--- OUTSIDE RECORDS SUMMARY | 2023-01-16 23:42 | XMS_ITS | Continuity of Care Document ---
Author Name Unknown Organization [facility] Address [address] [place] [address]- Care Team Providers Care Utility Engineer Name Role Phone Not on Staff, PCP Primary Care Physician Unavail able Encounter [facility] Date(s): 01/09/21 - 02/10/21 [facility] [address] [place], [place] [address] Attending Physician: Salomon OLMEDO, [facility] Allergies, Adverse Reactions, Alerts Substance Reaction Severity [...] 3Admin Note: recv'd at PCP office in [place] 4Admin Note: afluria 5Admin Note: Flucelvax 6Admin Note: VIS Given 7Result Comment: [08/06/2017] verbal consent obtained, allergies reviewed. Has had flu shot in past with no issues. [facility] flu vaccine sheet given. 8Admin Note: #2 9Admin Note: [facility] Records 10Admin Note: VIS given 11Admin Note: VIS given 12Result Comment: wrong patient 13Admin Note: Dr. Suarez Records 14Admin Note: [facility] Records 15Admin Note: [facility] Records #2 16Admin Note: [facility] Records #1 17Admin Note: [facility] Records Medications [facility] intramuscular suspension 0.5 mL, Intramuscular, Once, # 0.5 mL, 0 Refills, Soft Stop, 07/10/16 12:13:00 Start Date: 07/10/16 Status: [facility] 0.5 mL, Intramuscular, Once, [...] 30 tablet, 1Refills, Maintenance, 01/04/21 15:13:00 EDT, [facility], 30, TAKE 1 TABLET BY [...] Replace Required Details, Route to Pharmacy Electronically, [facility], Partial... Start Date: 02/02/21 [...] 03/03/14 Stop Date: 07/01/14 Status: Ordered Flucelvax [id number] intramuscular suspension 0.5 mL, Intramuscular, Once, # 0.5 mL, 0 Refills, Soft Stop, 09/13/15 14:14:54 Start Date: 09/13/15 Status: Ordered Genvoya oral tablet 1 tablet, By Mouth, Daily, with food, # 30 tablet, 5 Refills, Maintenance, 09/13/20 10:33:00 EST, Tablet, [facility], 1 tablet By Mouth Daily,x30 [...] 01/04/21 15:13:00 EDT, Route to Pharmacy Electronically, [facility], 180, cm, 03/30/20 15:08:00 EDT, [...] capsule, 0 Refills, Maintenance, 06/24/20 17:18:00 EDT, [facility], 180, cm, 03/30/20 15:08:00 EDT, [...] 30 tablet, 1 Refills, Maintenance,11/11/20 15:50:00 EDT, [facility], 180, cm, 03/30/20 15:08:00 [...]
--- OUTSIDE RECORDS SUMMARY | 2023-01-16 23:42 | XMS_ITS | Continuity of Care Document ---
Author Name Unknown Organization [facility] Address [address] [place] [address]- Care Team Providers Care Senior Asic Engineer Name Role Phone Susu Jules MD Primary Care Physician Encounter [facility] Date(s): 04/26/20 - 05/26/20 [facility] [address] [place] [address]- [facility] Allergies, Adverse Reactions, Alerts Substance Reaction Severity [...] 3Admin Note: recv'd at PCP office in [place] 4Admin Note: afluria 5Admin Note: Flucelvax 6Admin Note: VIS Given 7Result Comment: [08/06/2017] verbal consent obtained, allergies reviewed. Has had flu shot in past with no issues. [facility] flu vaccine sheet given. 8Admin Note: #2 9Admin Note: [facility] Records 10Admin Note: VIS given 11Admin Note: VIS given 12Result Comment: wrong patient 13Admin Note: Dr. Suarez Records 14Admin Note: [facility] Records 15Admin Note: [facility] Records #2 16Admin Note: [facility] Records #1 17Admin Note: [facility] Records Medications [facility] intramuscular suspension 0.5 mL, Intramuscular, Once, # 0.5 mL, 0 Refills, Soft Stop, 07/10/16 12:13:00 Start Date: 07/10/16 Status: Ordered [facility] intramuscular suspension 0.5 mL, Intramuscular, Once, # 0.5 mL, 0 Refills, Soft Stop, 08/06/17 13:28:00 Start Date: 08/06/17 Status: Ordered Ambien 10 mg oral tablet 1 tablet = 10 mg, By Mouth, Daily at bedtime, PRN as needed for sleep, hazardous material specialist reviewed, # 30 tablet, 0Refills, Maintenance, 05/10/20 17:22:00 EDT, Tablet, [facility], 180, cm, 03/30/2015:08:00 EDT, Height, 81.8, kg, 10/28/18 10:39:00 E... Start Date: 05/10/20 Status: Ordered Boostrix (Tdap) intramuscular suspension 0.5 mL, Intramuscular, Once, # 5 mL, 0 Refills, Soft Stop, 01/01/17 14:35:00, Suspension Start Date: 01/01/17 Status: Ordered buPROPion 300 mg/24 hours (XL) oral tablet, extended release See Instructions, TAKE ONE TABLET BY MOUTH ONCE DAILY, # 90 tablet, 1 Refills, Maintenance, [facility], 180, cm, 03/30/20 15:08:00 EDT, Height, 81.8, kg, 10/28/18 10:39:00 EST, Dry Weight Start Date: 05/10/20 Status: Ordered buPROPion 300 mg/24 hours (XL) oral tablet, extended release 1 tablet = 300 mg, By Mouth, Every 24 hours, # 90 tablet, 1 Refills, Maintenance, 11/11/19 15:45:00EDT, [facility], 180, cm, 06/24/19 9:51:00 EDT, Height, [...] 03/03/14 Stop Date: 07/01/14 Status: Ordered Flucelvax [id number] intramuscular suspension 0.5 mL, Intramuscular, Once, # 0.5 mL, 0 Refills, Soft Stop, 09/13/15 14:14:54 Start Date: 09/13/15 Status: Ordered Genvoya oral tablet 1 tablet, By Mouth, Daily, with food, # 30 tablet, 5 Refills, Maintenance, 01/04/20 16:38:00 EDT, Tablet, [facility], 1 tablet By Mouth Daily,x30 days,Instr:with [...] 1 mg oral capsule See Instructions, TAKE ONE CAPSULE BY MOUTH AT BEDTIME FOR 2 NIGHTS, THEN TAKE TWO CAPSULES AT BEDTIME FOR 2 NIGHTS, THEN TAKE THREE CAPSULES AT BEDTIME, # 90 capsule, Refills 2, Maintenance, Instructions Replace Required Details, Route to Pharmacy [place]... Start Date: 05/10/20 Status: Ordered prazosin 1 mg oral capsule [...] Daily, # 30 tablet, 0 Refills, Maintenance, 03/19/19 12:39:40 EDT, Tablet Start Date: 11/11/18 Status: [...]
--- OUTSIDE RECORDS SUMMARY | 2023-01-16 23:42 | XMS_ITS | Continuity of Care Document ---
Author Name Unknown Organization [facility] Address [address] [place] [address]- Care Team Providers Care Compensator Worker Name Role Phone Salomon OLMEDO, Jet Primary Care Physician [phone] [facility] - 04/20/21 [facility] [address] [place] [address]- Allergies, Adverse Reactions, Alerts Substance Reaction Severity [...] 3Admin Note: recv'd at PCP office in [place] 4Admin Note: afluria 5Admin Note: Flucelvax 6Admin Note: VIS Given 7Result Comment: [08/06/2017] verbal consent obtained, allergies reviewed. Has had flu shot in past with no issues. [facility] flu vaccine sheet given. 8Admin Note: #2 9Admin Note: [facility] Records 10Admin Note: VIS given 11Admin Note: VIS given 12Result Comment: wrong patient 13Admin Note: Dr. Suarez Records 14Admin Note: [facility] Records 15Admin Note: [facility] Records #2 16Admin Note: [facility] Records #1 17Admin Note: [facility] Records Medications buPROPion 150 mg/24 hours (XL) oral tablet, extended release 1 tablet, By Mouth, Daily in AM, TAKE WITH 300 MG TAB FOR TOTAL OF 450 MG/DAY IN AM, # 30 tablet, 1Refills, Maintenance, 03/03/21 11:22:00 EDT, [facility], 30, 1 tablet By [...] Replace Required Details, Route to Pharmacy Electronically, [facility], Partial... Start Date: 02/02/21 Status: Ordered clindamycin 1% topical gel 1 application, Topically, 2 times a day, # 60 Gm, 0 Refills, Maintenance, 03/21/21 14:11:00 EDT, Gel, [facility]/pharmacy #[id number], Partial fill upon patient request if the prescription is for a schedule II opioid drug., 1 application Topically 2 times a day, 1... Start Date: 03/21/21 Status: Ordered clotrimazole 1% topical cream 1 application, Topically, 2 times a day, # 113 Gm, 1 Refills, Maintenance, 03/15/21 13:54:00 EDT, Cream, [facility]/pharmacy #[id number], Partial fill upon patient request [...] 5 Refills, Maintenance, 03/27/21 10:44:00 EDT, Tablet, [facility], 1 tablet By Mouth Daily,x30 days,Instr:with food, 180, cm, 03/15/21 13:32:00 EDT, Height Start Date: 03/27/21 Stop Date: 09/23/21 Status: Ordered Nasacort Allergy 24HR 55 mcg/inh nasal spray See Instructions, 2 sprays Daily, # 1 each, 1 Refills, Maintenance, 09/25/16 12:12:25 Start Date: 09/25/16 Status: Ordered nystatin topical 562134 u/gm powder 1 application, Topically, 3 times a day, # 60 Gm, 1 Refills, Maintenance, 04/03/21 18:31:00 EDT, Powder, [facility], Partial fill upon patient request [...] Replace Required Details, Route to Pharmacy Electronically, [facility], 180, cm, 01/10/21 14:13:00 EDT, Height Start Date: 03/03/21 Status: Ordered prazosin 1 mg oral capsule 3, capsule, By Mouth, Daily at bedtime, # 90 capsule, Refills 1, Tot. Refills 0, Maintenance, 01/04/21 15:13:00 EDT, Route to Pharmacy Electronically, [facility], 180, cm, 03/30/20 15:08:00 EDT, [...] capsule, 0 Refills, Maintenance, 06/24/20 17:18:00 EDT, [facility], 180, cm, 03/30/20 15:08:00 EDT, Height, 81.8, kg, 10/28/18 10:39:00 EST, Dry Weight Start Date: 06/24/20 Status: Ordered zolpidem 10 mg oral tablet 1 tablet, By Mouth, Daily at bedtime, PRN NEEDED FOR SLEEP, # 30 tablet, 1 Refills, Maintenance,03/03/21 11:22:00 EDT, [facility], 180, cm, 01/10/21 14:13:00 EDT, [...]
--- OUTSIDE RECORDS SUMMARY | 2023-01-16 23:42 | XMS_ITS | Continuity of Care Document ---
Author Name Unknown Organization [facility] Address [address] [place] [address]- Care Team Providers Care Bed Bug Exterminator Name Role Phone Salomon OLMEDO, Jet Primary Care Physician [facility] 04[facility]21 - 05/03/21 [facility] [address] [place] [address]- Allergies, Adverse Reactions, Alerts Substance Reaction Severity [...] 3Admin Note: recv'd at PCP office in [place] 4Admin Note: afluria 5Admin Note: Flucelvax 6Admin Note: VIS Given 7Result Comment: [08/06/2017] verbal consent obtained, allergies reviewed. Has had flu shot in past with no issues. [facility] flu vaccine sheet given. 8Admin Note: #2 9Admin Note: [facility] Records 10Admin Note: VIS given 11Admin Note: VIS given 12Result Comment: wrong patient 13Admin Note: Dr. Suarez Records 14Admin Note: [facility] Records 15Admin Note: [facility] Records #2 16Admin Note: [facility] Records #1 17Admin Note: [facility] Records Medications buPROPion 150 mg/24 hours (XL) oral tablet, extended release 1 tablet, By Mouth, Daily in AM, # 30 tablet, 1 Refills, [facility], 30, TAKE ONE TABLET BY MOUTH EVERY MORNING WITH 300 MG TABLET FOR A TOTAL OF 450 MG PER DAY IN THE MORNING, 180, cm, 03/15/21 13:32:00 EDT, Height Start Date: 05/02/21 Status: Ordered buPROPion 300 mg/24 hours (XL) oral tablet, extended release 1 tablet, By Mouth, Daily, # 30 tablet, 1 Refills, [facility], 180, cm, 03/15/21 13:32:00 EDT, Height Start Date: 05/02/21 Status: Ordered busPIRone 5 mg oral tablet See Instructions, Take 1 tab qhs po x 5 days then take 1 tab bid, # 60 tablet, Refills 2, Tot. Refills 2, Maintenance, 02/02/21 11:48:00 EDT, Instructions Replace Required Details, Route to Pharmacy Electronically, [facility], Partial... Start Date: 02/02/21 Status: Ordered clindamycin 1% topical gel 1 application, Topically, 2 times a day, # 60 Gm, 0 Refills, Maintenance, 03/21/21 14:11:00 EDT, Gel, [facility]/pharmacy #[id number], Partial fill upon patient request if the prescription is for a schedule II opioid drug., 1 application Topically 2 times a day, 1... Start Date: 03/21/21 Status: Ordered clotrimazole 1% topical cream 1 application, Topically, 2 times a day, # 113 Gm, 1 Refills, Maintenance, 03/15/21 13:54:00 EDT, Cream, [facility]/pharmacy #[id number], Partial fill upon patient request if [...] 5 Refills, Maintenance, 03/27/21 10:44:00 EDT, Tablet, [facility], 1 tablet By Mouth Daily,x30 days,Instr:with food, 180, cm, 03/15/21 13:32:00 EDT, Height Start Date: 03/27/21 Stop Date: 09/23/21 Status: Ordered Nasacort Allergy 24HR 55 mcg/inh nasal spray See Instructions, 2 sprays Daily, # 1 each, 1 Refills, Maintenance, 09/25/16 12:12:25 Start Date: 09/25/16 Status: Ordered nystatin topical 621660 u/gm powder 1 application, Topically, 3 times a day, # 60 Gm, 1 Refills, Maintenance, 04/03/21 18:31:00 EDT, Powder, [facility], Partial fill upon patient request [...] capsule, Refills 1, Route to Pharmacy Electronically, [facility], 180, cm, 03/15/21 13:32:00 EDT, [...] capsule, 0 Refills, Maintenance, 06/24/20 17:18:00 EDT, [facility], 180, cm, 03/30/20 15:08:00 EDT, Height, 81.8, kg, 10/28/18 10:39:00 EST, Dry Weight Start Date: 06/24/20 Status: Ordered zolpidem 10 mg oral tablet 1 tablet, By Mouth, Daily at bedtime, PRN NEEDED FOR SLEEP, # 30 tablet, 1 Refills, Maintenance,05/02/21 11:41:00 EDT, [facility], 180, cm, 03/15/21 13:32:00 EDT, [...]
--- OUTSIDE RECORDS SUMMARY | 2023-01-16 23:42 | XMS_ITS | Continuity of Care Document ---
Author Name Unknown Organization [facility] Address [address] [place] [address]- Care Team Providers Care Center Machine Set Up Operator Name Role Phone Salomon OLMEDO, Jet Primary Care Physician [facility] 03/[facility] - 04/30/21 [facility] [address] [place], [place] [address] Allergies, Adverse Reactions, Alerts Substance Reaction [...] 3Admin Note: recv'd at PCP office in [place] 4Admin Note: afluria 5Admin Note: Flucelvax 6Admin Note: VIS Given 7Result Comment: [08/06/2017] verbal consent obtained, allergies reviewed. Has had flu shot in past with no issues. [facility] flu vaccine sheet given. 8Admin Note: #2 9Admin Note: [facility] Records 10Admin Note: VIS given 11Admin Note: VIS given 12Result Comment: wrong patient 13Admin Note: Dr. Suarez Records 14Admin Note: [facility] Records 15Admin Note: [facility] Records #2 16Admin Note: [facility] Records #1 17Admin Note: [facility] Records Medications buPROPion 150 [...] Refills, Maintenance, 03/21/21 14:11:00 EDT, Gel[id number] Partial fill upon patient request if the prescription is for a schedule II opioid drug., 1 application Topically 2 times a day, 1... Start Date: 03/21/21 Status: Ordered clotrimazole 1% topical cream 1 application, Topically, 2 times a day, # 113 Gm, 1 Refills, Maintenance, 03/15/21 13:54:00 EDT, Cream, [facility]/pharmacy #[id number], Partial fill upon patient request if [...] 5 Refills, Maintenance, 03/27/21 10:44:00 EDT, Tablet, [facility], 1 tablet By Mouth Daily,x30 days,Instr:with food, 180, cm, 03/15/21 13:32:00 EDT, Height Start Date: 03/27/21 Stop Date: 09/23/21 Status: Ordered Nasacort Allergy 24HR 55 mcg/inh nasal spray See Instructions, 2 sprays Daily, # 1 each, 1 Refills, Maintenance, 09/25/16 12:12:25 Start Date: 09/25/16 Status: Ordered nystatin topical 210787 u/gm powder 1 application, Topically, 3 times [...] Replace Required Details, Route to Pharmacy Electronically, [facility], 180, cm, 01/10/21 14:13:00 EDT, Height Start Date: 03/03/21 Status: Ordered prazosin 1 mg oral capsule 3, capsule, By Mouth, Daily at bedtime, # 90 capsule, Refills 1, Tot. Refills 0, Maintenance, 01/04/21 15:13:00 EDT, Route to Pharmacy Electronically, [facility], 180, cm, 03/30/20 15:08:00 EDT, [...] capsule, 0 Refills, Maintenance, 06/24/20 17:18:00 EDT, [facility], 180, cm, 03/30/20 15:08:00 EDT, Height, 81.8, kg, 10/28/18 10:39:00 EST, Dry Weight Start Date: 06/24/20 Status: Ordered zolpidem 10 mg oral tablet 1 tablet, By Mouth, Daily at bedtime, PRN NEEDED FOR SLEEP, # 30 tablet, 1 Refills, Maintenance,03/03/21 11:22:00 EDT, [facility], 180, cm, 01/10/21 14:13:00 EDT, [...]
--- OUTSIDE RECORDS SUMMARY | 2023-01-16 23:42 | XMS_ITS | Continuity of Care Document ---
Author Name Unknown Organization [facility] Address [address] [place] [address]- Care Team Providers Care Cisco Network Engineer Name Role Phone Salomon OLMEDO, Jet Primary Care Physician [phone] [facility]): 03/22/21 - 04/21/21 [facility] [address] [place] [address]- Allergies, Adverse Reactions, Alerts Substance Reaction Severity [...] 3Admin Note: recv'd at PCP office in [place] 4Admin Note: afluria 5Admin Note: Flucelvax 6Admin Note: VIS Given 7Result Comment: [08/06/2017] verbal consent obtained, allergies reviewed. Has had flu shot in past with no issues. [facility] flu vaccine sheet given. 8Admin Note: #2 9Admin Note: [facility] Records 10Admin Note: VIS given 11Admin Note: VIS given 12Result Comment: wrong patient 13Admin Note: Dr. Suarez Records 14Admin Note: [facility] Records 15Admin Note: [facility] Records #2 16Admin Note: [facility] Records #1 17Admin Note: [facility] Records Medications buPROPion 150 mg/24 hours (XL) oral tablet, extended release 1 tablet, By Mouth, Daily in AM, TAKE WITH 300 MG TAB FOR TOTAL OF 450 MG/DAY IN AM, # 30 tablet, 1Refills, Maintenance, 03/03/21 11:22:00 EDT, [facility], 30, 1 tablet By [...] Pharmacy Electronically, [facility], Partial... Start Date: 02/02/21 Status: Ordered clindamycin 1% topical gel 1 application, Topically, 2 times a day, # 60 Gm, 0 Refills, Maintenance, 03/21/21 14:11:00 EDT, Gel[id number] Partial fill upon patient request if the prescription is for a schedule II opioid drug., 1 application Topically 2 times a day, 1... Start Date: 03/21/21 Status: Ordered clotrimazole 1% topical cream 1 application, Topically, 2 times a day, # 113 Gm, 1 Refills, Maintenance, 03/15/21 13:54:00 EDT, Cream, [facility]/pharmacy #[id number], Partial fill upon patient request if [...] 5 Refills, Maintenance, 03/27/21 10:44:00 EDT, Tablet, [facility], 1 tablet By Mouth Daily,x30 days,Instr:with food, 180, cm, 03/15/21 13:32:00 EDT, Height Start Date: 03/27/21 Stop Date: 09/23/21 Status: Ordered Nasacort Allergy 24HR 55 mcg/inh nasal spray See Instructions, 2 sprays Daily, # 1 each, 1 Refills, Maintenance, 09/25/16 12:12:25 Start Date: 09/25/16 Status: Ordered nystatin topical 926796 u/gm powder 1 application, Topically, 3 times a day, # 60 Gm, 1 Refills, Maintenance, 04/03/21 18:31:00 EDT, Powder, [facility], Partial fill upon patient [...] Replace Required Details, Route to Pharmacy Electronically, [facility], 180, cm, 01/10/21 14:13:00 EDT, Height Start Date: 03/03/21 Status: Ordered prazosin 1 mg oral capsule 3, capsule, By Mouth, Daily at bedtime, # 90 capsule, Refills 1, Tot. Refills 0, Maintenance, 01/04/21 15:13:00 EDT, Route to Pharmacy Electronically, [facility], 180, cm, 03/30/20 15:08:00 EDT, Height [...] capsule, 0 Refills, Maintenance, 06/24/20 17:18:00 EDT, [facility], 180, cm, 03/30/20 15:08:00 EDT, Height, 81.8, kg, 10/28/18 10:39:00 EST, Dry Weight Start Date: 06/24/20 Status: Ordered zolpidem 10 mg oral tablet 1 tablet, By Mouth, Daily at bedtime, PRN NEEDED FOR SLEEP, # 30 tablet, 1 Refills, Maintenance,03/03/21 11:22:00 EDT, [facility], 180, cm, 01/10/21 14:13:00 EDT, [...]
--- OUTSIDE RECORDS SUMMARY | 2023-01-16 23:42 | XMS_ITS | Continuity of Care Document ---
Author Name Unknown Organization [facility] Address [address] [place] [address]- Care Team Providers Care Tectonophysicist Name Role Phone Salomon OLMEDO, Jet Primary Care Physician [facility] 03[facility]21 - 04/30/21 [facility] [address] [place] [address]- Allergies, Adverse Reactions, Alerts Substance Reaction Severity [...] 3Admin Note: recv'd at PCP office in [place] 4Admin Note: afluria 5Admin Note: Flucelvax 6Admin [...] [facility] Records 15Admin Note: [facility] Records #2 16Admin Note: [facility] Records #1 17Admin Note: [facility] Records Medications buPROPion 150 mg/24 hours [...] 5 Refills, Maintenance, 03/27/21 10:44:00 EDT, Tablet, [facility], 1 tablet By Mouth Daily,x30 days,Instr:with food, 180, cm, 03/15/21 13:32:00 EDT, Height Start Date: 03/27/21 Stop Date: 09/23/21 Status: Ordered Nasacort Allergy 24HR 55 mcg/inh nasal spray See Instructions, 2 sprays Daily, # 1 each, 1 Refills, Maintenance, 09/25/16 12:12:25 Start Date: 09/25/16 Status: Ordered nystatin topical 286874 u/gm powder 1 application, Topically, 3 times a day, # 60 Gm, 1 Refills, Maintenance, 04/03/21 18:31:00 EDT, Powder, [facility], Partial fill upon patient request [...] Replace Required Details, Route to Pharmacy Electronically, [facility], 180, cm, 01/10/21 14:13:00 EDT, Height Start Date: 03/03/21 Status: Ordered prazosin 1 mg oral capsule 3, capsule, By Mouth, Daily at bedtime, # 90 capsule, Refills 1, Tot. Refills 0, Maintenance, 01/04/21 15:13:00 EDT, Route to Pharmacy Electronically, [facility], 180, cm, 03/30/20 15:08:00 EDT, [...] capsule, 0 Refills, Maintenance, 06/24/20 17:18:00 EDT, [facility], 180, cm, 03/30/20 15:08:00 EDT, Height, 81.8, kg, 10/28/18 10:39:00 EST, Dry Weight Start Date: 06/24/20 Status: Ordered zolpidem 10 mg oral tablet 1 tablet, By Mouth, Daily at bedtime, PRN NEEDED FOR SLEEP, # 30 tablet, 1 Refills, Maintenance,03/03/21 11:22:00 EDT, [facility], 180, cm, 01/10/21 14:13:00 EDT, [...]
--- OUTSIDE RECORDS SUMMARY | 2023-01-16 23:43 | XMS_ITS | Continuity of Care Document ---
Author Name Unknown Organization [facility] Address [address] [place] [address]- Care Team Providers Care Load Test Mechanic Name Role Phone Jorge A OLMEDO, Susu Primary Care Physician [phone] [facility]20 - 02/19/20 [facility] [address] [place] [id number] [facility] Attending Physician: Admtr, Ar8 Allergies, Adverse Reactions, [...] 3Admin Note: recv'd at PCP office in [place] 4Admin Note: afluria 5Admin Note: Flucelvax 6Admin Note: VIS Given 7Result Comment: [08/06/2017] verbal consent obtained, allergies reviewed. Has had flu shot in past with no issues. [facility] flu vaccine sheet given. 8Admin Note: #2 9Admin Note: [facility] Records 10Admin Note: VIS given 11Admin Note: VIS given 12Result Comment: wrong patient 13Admin Note: Dr. Suarez Records 14Admin Note: [facility] Records 15Admin Note: [facility] Records #2 16Admin Note: [facility] Records #1 17Admin Note: [facility] Records Medications [facility] intramuscular suspension 0.5 mL, Intramuscular, Once, # 0.5 mL, 0 Refills, Soft Stop, 07/10/16 12:13:00 Start Date: 07/10/16 Status: Ordered [facility] intramuscular suspension 0.5 mL, Intramuscular, Once, # 0.5 mL, 0 Refills, Soft Stop, 08/06/17 13:28:00 Start Date: 08/06/17 Status: Ordered Ambien 10 mg oral tablet 1 tablet = 10 mg, By Mouth, Daily at bedtime, PRN as needed for sleep, bleaching supervisor reviewed, # 30 tablet, 2Refills, Maintenance, 02/18/20 10:49:00 EDT, Tablet, [facility], 180, cm, :51:00 EDT, [...] 90 tablet, 1 Refills, Maintenance, 11/11/19 15:45:00EDT, [facility], 180, cm, 06/24/19 9:51:00 [...] 03/03/14 Stop Date: 07/01/14 Status: Ordered Flucelvax 4750-0250 intramuscular suspension 0.5 mL, Intramuscular, Once, # 0.5 mL, 0 Refills, Soft Stop, 09/13/15 14:14:54 Start Date: 09/13/15 Status: Ordered Genvoya oral tablet 1 tablet, By Mouth, Daily, with food, # 30 tablet, 5 Refills, Maintenance, 01/04/20 16:38:00 EDT, Tablet, [facility], 1 tablet By Mouth [...]
--- OUTSIDE RECORDS SUMMARY | 2023-01-16 23:43 | XMS_ITS | Continuity of Care Document ---
Author Name Unknown Organization [facility] Address [address] [place] [address]- Care Team Providers Care Hairspring Fabrication Supervisor Name Role Phone Salomon OLMEDO, [facility] Primary Care Physician [phone] [facility] 01[facility]23[facility]22 - 02/22/22 [facility] [address] [place] [id number] Attending Physician: Admtr, [id number] Allergies, Adverse [...] Vaccine 9 03/07/07 Given pneumococcal 23-valent vaccine 11/20/12 Given influ virus vac, H1N1, inactive(oldterm) 10 [...] 3Admin Note: recv'd at PCP office in [place] 4Admin Note: afluria 5Admin Note: Flucelvax 6Admin [...] [facility] Records 15Admin Note: [facility] Records #2 16Admin Note: [facility] Records #1 17Admin Note: [facility] Records Medications buPROPion 150 mg/24 hours (XL) oral tablet, extended release See Instructions, TAKE 1 TABLET BY MOUTH EVERY MORNING, # 30 tablet, 1 Refills, 12/08/21 6:01:00 EDT, [facility], 30, TAKE 1 TABLET BY MOUTH EVERY MORNING, 180, cm, 07/11/21 14:47:00EST, Height Start Date: 12/08/21 Status: Ordered buPROPion 300 mg/24 hours (XL) oral tablet, extended release See Instructions, TAKE 1 TABLET BY MOUTH EVERY DAY, # 30 tablet, 1 Refills, 12/08/21 6:01:00 EDT, [facility], 180, cm, 07/11/21 14:47:00 EST, Height Start Date: 12/08/21 Status: Ordered clindamycin 1% topical gel 1 application, Topically, 2 times a day, # 60 Gm, 0 Refills, Maintenance, 03/21/21 14:11:00 EDT, Gel, [facility]/pharmacy #[id number], Partial fill upon patient request if the prescription is for a schedule II opioid drug., 1 application Topically 2 times a day, 1... Start Date: 03/21/21 Status: Ordered clotrimazole 1% topical cream 1 application, Topically, 2 times a day, # 113 Gm, 1 Refills, Maintenance, 03/15/21 13:54:00 EDT, Cream, [facility]/pharmacy #[id number], Partial fill upon patient [...] 5 Refills, Maintenance, 11/20/21 10:48:00 EDT, Tablet, [facility], 1 tablet By Mouth Daily,x30 days,Instr:with food, 180, cm, 07/11/21 14:47:00 EST, Height Start Date: 11/20/21 Stop Date: 05/19/22 Status: Ordered ketoconazole 2% topical cream 1 application, Topically, 2 times a day, for 28 days, # 60 Gm, 0 Refills, Acute 02/26/22 15:46:00 EDT, 01/29/22 15:46:00 EDT, Cream, [facility]/pharmacy #[id number], Partial fill upon patient request if the prescription is for a schedule II opioid drug., 1 applica... Start Date: 01/29/22 Stop Date: 02/26/22 Status: Ordered Nasacort Allergy 24HR 55 mcg/inh nasal spray See Instructions, 2 sprays Daily, # 1 each, 1 Refills, Maintenance, 09/25/16 12:12:25 Start Date: 09/25/16 Status: Ordered nystatin topical 341100 u/gm powder 1 application, Topically, 3 times a day, # 60 Gm, 1 Refills, Maintenance, 06/06/21 14:33:00 EDT, Powder, [facility]/pharmacy #[id number], Partial fill upon patient request if the prescription is for a schedule IIopioid drug., 1 application Topically 3 times a day... Start Date: 06/06/21 Status: Ordered Vistaril pamoate 25 mg oral capsule See Instructions, PRN as needed for anxiety, take 1-2 caps po bid prn for anxiety or insomnia. Max 4 caps/day, # 120 capsule, 1 Refills, Maintenance, 12/08/21 6:01:00 EDT, [facility], 180, cm, 07/11/21 14:47:00 EST, Height Start Date: 12/08/21 Status: Ordered zolpidem 10 mg oral tablet See Instructions, TAKE ONE TABLET BY MOUTH EVERY NIGHT AT BEDTIME NEEDED FOR SLEEP, # 30 tablet,1 Refills, Maintenance, 10/26/21 17:15:00 EST, [facility], 180, cm, 07/11/21 14:47:00 EST, Height Start Date: 10/26/21 Status: Ordered zolpidem 10 mg oral tablet See Instructions, TAKE ONE TABLET BY MOUTH EVERY NIGHT AT BEDTIME NEEDED FOR SLEEP, # 30 tablet,1 Refills, Maintenance, 12/08/21 6:04:00 EDT, [facility], 180, cm, 07/11/21 14:47:00 EST, Height Start Date: 12/08/21 Status: Ordered ZyrTEC 10 mg oral tablet 1 tablet = 10 mg, By Mouth, Daily, # 30 tablet, 11 Refills, Maintenance, 01/23/22 14:27:00 EDT, Tablet, [facility]/pharmacy #[id number], 180, cm, 01/23/22 14:19:00 [...]
--- OUTSIDE RECORDS SUMMARY | 2023-01-16 23:43 | XMS_ITS | Continuity of Care Document ---
Author Name Unknown Organization [facility] Address [address] [place] [address]- Care Team Providers Care Buzzle Buffer Name Role Phone Not on Staff, PCP Primary Care Physician Unavail able Encounter [facility] Date(s): 01/05/21 - 02/04/21 [facility] [address] [place], [place] [address] Allergies, Adverse Reactions, Alerts Substance Reaction [...] 3Admin Note: recv'd at PCP office in [place] 4Admin Note: afluria 5Admin Note: Flucelvax 6Admin Note: VIS Given 7Result Comment: [08/06/2017] verbal consent obtained, allergies reviewed. Has had flu shot in past with no issues. [facility] flu vaccine sheet given. 8Admin Note: #2 9Admin Note: [facility] Records 10Admin Note: VIS given 11Admin Note: VIS given 12Result Comment: wrong patient 13Admin Note: Dr. Suarez Records 14Admin Note: [facility] Records 15Admin Note: [facility] Records #2 16Admin Note: [facility] Records #1 17Admin Note: [facility] Records Medications [facility] intramuscular suspension 0.5 mL, Intramuscular, Once, # 0.5 mL, 0 Refills, Soft Stop, 07/10/16 12:13:00 Start Date: 07/10/16 Status: Ordered [facility] intramuscular suspension 0.5 mL, Intramuscular, Once, # [...] 30 tablet, 1Refills, Maintenance, 01/04/21 15:13:00 EDT, [facility], 30, TAKE 1 TABLET BY [...] Replace Required Details, Route to Pharmacy Electronically, [facility], Partial... Start Date: 02/02/21 [...] 03/03/14 Stop Date: 07/01/14 Status: Ordered Flucelvax [id number] intramuscular suspension 0.5 mL, Intramuscular, Once, # 0.5 mL, 0 Refills, Soft Stop, 09/13/15 14:14:54 Start Date: 09/13/15 Status: Ordered Genvoya oral tablet 1 tablet, By Mouth, Daily, with food, # 30 tablet, 5 Refills, Maintenance, 09/13/20 10:33:00 EST, Tablet, [facility], 1 tablet By Mouth Daily,x30 [...] 01/04/21 15:13:00 EDT, Route to Pharmacy Electronically, [facility], 180, cm, 03/30/20 15:08:00 [...] capsule, 0 Refills, Maintenance, 06/24/20 17:18:00 EDT, [facility], 180, cm, 03/30/20 15:08:00 EDT, Height, 81.8, kg, 10/28/18 10:39:00 EST, Dry Weight Start Date: 06/24/20 Status: Ordered zolpidem 10 mg oral tablet See Instructions, TAKE ONE TABLET BY MOUTH EVERY NIGHT AT BEDTIME NEEDED FOR SLEEP, # 30 tablet,1 Refills, Maintenance, 01/04/21 15:13:00 EDT, [facility], 180, cm, 03/30/20 15:08:00 EDT, Height Start Date: 01/04/21 Status: Ordered zolpidem 10 mg oral tablet 1 tablet, By Mouth, Daily at bedtime, PRN NEEDED FOR SLEEP, # 30 tablet, 1 Refills, Maintenance,11/11/20 15:50:00 EDT, [facility], 180, cm, [...]
--- OUTSIDE RECORDS SUMMARY | 2023-01-16 23:43 | XMS_ITS | Continuity of Care Document ---
Author Name Unknown Organization [facility] Address [address] [place] [address]- Care Team Providers Care Front Desk Representative Name Role Phone Salomon OLMEDO, [place] Primary Care Physician Encounter [facility] Date(s): 08/11/21 - 09/10/21 [facility] [address] [place] [address]- Attending Physician: Karen Bowser Admitting Physician: Karen [...] 3Admin Note: recv'd at PCP office in [place] 4Admin Note: afluria 5Admin Note: Flucelvax 6Admin Note: VIS Given 7Result Comment: [08/06/2017] verbal consent obtained, allergies reviewed. Has had flu shot in past with no issues. [facility] flu vaccine sheet given. 8Admin Note: #2 9Admin Note: [facility] Records 10Admin Note: VIS given 11Admin Note: VIS given 12Result Comment: wrong patient 13Admin Note: Dr. Suarez Records 14Admin Note: [facility] Records 15Admin Note: [facility] Records #2 16Admin Note: [facility] Records #1 17Admin Note: [facility] Records Medications buPROPion 150 mg/24 hours (XL) oral tablet, extended release 1 tablet, By Mouth, Daily in AM, # 30 tablet, 1 Refills, 06/28/21 8:50:00 EDT, [facility]/pharmacy #[id number], 30, 1 tablet By Mouth Daily in AM, 180, cm, 03/15/21 13:32:00 EDT, Height Start Date: 06/28/21 Status: Ordered buPROPion 150 mg/24 hours (XL) oral tablet, extended release See Instructions, TAKE ONE TABLET BY MOUTH EVERY MORNING WITH 300 MG TABLET FOR A TOTAL OF 450 MG PER DAY IN THE MORNING, # 30 tablet, 5 Refills, [facility], 30, TAKE ONE TABLET BY MOUTH EVERY MORNING WITH 300 MG TABLET FOR A TOTAL OF... Start Date: 08/22/21 Status: Ordered buPROPion 300 mg/24 hours (XL) oral tablet, extended release 1 tablet, By Mouth, Daily, # 30 tablet, 1 Refills, 06/28/21 8:50:00 EDT[id number], cm, 03/15/21 13:32:00 EDT, Height Start Date: 06/28/21 Status: Ordered buPROPion 300 mg/24 hours (XL) oral tablet, extended release See Instructions, TAKE ONE TABLET BY MOUTH ONCE DAILY, # 30 tablet, 5 Refills, [facility], 180, cm, 07/11/21 14:47:00 EST, Height Start Date: 08/22/21 Status: Ordered busPIRone 5 mg oral tablet 5 mg, 1, tablet, By Mouth, 2 times a day, # 60 tablet, Refills 2, Tot. Refills 2, Maintenance, 08/22/21 12:35:00 EST, [id number], cm, 07/11/21 14:47:00 EST, Height Start Date: 08/22/21 Status: Ordered clindamycin 1% topical gel 1 application, Topically, 2 times a day, # 60 Gm, 0 Refills, Maintenance, 03/21/21 14:11:00 EDT, Gel, [id number] Partial fill upon patient request if the prescription is for a schedule II opioid drug., 1 application Topically 2 times a day, 1... Start Date: 03/21/21 Status: Ordered clotrimazole 1% topical cream 1 application, Topically, 2 times a day, # 113 Gm, 1 Refills, Maintenance, 03/15/21 13:54:00 EDT, Cream, [facility]/pharmacy #[id number], Partial fill upon patient request [...] 5 Refills, Maintenance, 03/27/21 10:44:00 EDT, Tablet, [facility], 1 tablet By Mouth Daily,x30 days,Instr:with food, 180, cm, 03/15/21 13:32:00 EDT, Height Start Date: 03/27/21 Stop Date: 09/23/21 Status: Ordered Nasacort Allergy 24HR 55 mcg/inh nasal spray See Instructions, 2 sprays Daily, # 1 each, 1 Refills, Maintenance, 09/25/16 12:12:25 Start Date: 09/25/16 Status: Ordered nystatin topical 007969 u/gm powder 1 application, Topically, 3 times a day, # 60 Gm, 1 Refills, Maintenance, 06/06/21 14:33:00 EDT, Powder, [facility]/pharmacy #[id number], Partial fill upon patient request if the prescription is for a schedule IIopioid drug., 1 application Topically 3 times a day... Start Date: 06/06/21 Status: Ordered prazosin 1 mg oral capsule 3, capsule, By Mouth, Daily at bedtime, # 90 capsule, Refills 11, Tot. Refills 11, 08/09/21 11:17:00 EST, Route to Pharmacy Electronically, [facility]/pharmacy #[id number], 180, cm, 07/11/21 14:47:00 EST, Height [...] 30 tablet, 1 Refills, Maintenance,06/28/21 8:55:00 EDT, [facility]/pharmacy #[id number], 180, cm, 03/15/21 13:32:00 EDT, Height Start Date: 06/28/21 Status: Ordered zolpidem 10 mg oral tablet See Instructions, TAKE ONE TABLET BY MOUTH EVERY NIGHT AT BEDTIME NEEDED FOR SLEEP, # 30 tablet,2 Refills, Maintenance, 08/22/21 12:10:00 EST, [facility], 180, cm, 07/11/21 14:47:00 [...]
--- OUTSIDE RECORDS SUMMARY | 2023-01-16 23:43 | XMS_ITS | Continuity of Care Document ---
Author Name Unknown Organization [facility] Address [address] [place] [address]- Care Team Providers Care Volunteer Firefighter Name Role Phone Jorge A OLMEDO, Susu Primary Care Physician [place] [facility] Date(s): 11/17/19 - 02/19/20 [facility] [address] [place] [id number] Attending Physician: Kashif Chamberlain MD Admitting [...] 3Admin Note: recv'd at PCP office in [place] 4Admin Note: afluria 5Admin Note: Flucelvax 6Admin Note: VIS Given 7Result Comment: [08/06/2017] verbal consent obtained, allergies reviewed. Has had flu shot in past with no issues. [facility] flu vaccine sheet given. 8Admin Note: #2 9Admin Note: [facility] Records 10Admin Note: VIS given 11Admin Note: VIS given 12Result Comment: wrong patient 13Admin Note: Dr. Suarez Records 14Admin Note: [facility] Records 15Admin Note: [facility] Records #2 16Admin Note: [facility] Records #1 17Admin Note: [facility] Records Medications [facility] intramuscular suspension 0.5 mL, Intramuscular, Once, # 0.5 mL, 0 Refills, Soft Stop, 07/10/16 12:13:00 Start Date: 07/10/16 Status: Ordered [facility] intramuscular suspension 0.5 mL, Intramuscular, Once, # 0.5 mL, 0 Refills, Soft Stop, 08/06/17 13:28:00 Start Date: 08/06/17 Status: Ordered Ambien 10 mg oral tablet 1 tablet = 10 mg, By Mouth, Daily at bedtime, PRN as needed for sleep, inspector technician reviewed, # 30 tablet, 2Refills, Maintenance, 02/18/20 10:49:00 EDT, Tablet, [facility], 180, cm, 199:51:00 EDT, Height, 81.8, kg, 10/28/18 10:39:00 ES... Start Date: 02/18/20 Status: Ordered Boostrix (Tdap) intramuscular suspension 0.5 mL, Intramuscular, Once, # 5 mL, 0 Refills, Soft Stop, 01/01/17 14:35:00, Suspension Start Date: 01/01/17 Status: Ordered buPROPion 300 mg/24 hours (XL) oral tablet, extended release 1 tablet = 300 mg, By Mouth, Every 24 hours, # 90 tablet, 1 Refills, Maintenance, 11/11/19 15:45:00EDT, [facility], 180, cm, 06/24/19 9:51:00 EDT, [...] 03/03/14 Stop Date: 07/01/14 Status: Ordered Flucelvax [id number] intramuscular suspension 0.5 mL, Intramuscular, Once, # 0.5 mL, 0 Refills, Soft Stop, 09/13/15 14:14:54 Start Date: 09/13/15 Status: Ordered Genvoya oral tablet 1 tablet, By Mouth, Daily, with food, # 30 tablet, 5 Refills, Maintenance, 01/04/20 16:38:00 EDT, Tablet, [facility], 1 [...]
--- OUTSIDE RECORDS SUMMARY | 2023-01-16 23:43 | XMS_ITS | Continuity of Care Document ---
Author Name Unknown Organization [facility] Address [address] [place] [address]- Care Team Providers Care Metaphysics Teacher Name Role Phone Jet Latif MD Primary Care Physician Encounter [facility] Date(s): 06/17/21 - 10/15/21 [facility] [address] [place], [place] [address] Attending Physician: Jet Latif MD Allergies, [...] 3Admin Note: recv'd at PCP office in [place] 4Admin Note: afluria 5Admin Note: Flucelvax 6Admin Note: VIS Given 7Result Comment: [08/06/2017] verbal consent obtained, allergies reviewed. Has had flu shot in past with no issues. [facility] flu vaccine sheet given. 8Admin Note: #2 9Admin Note: [facility] Records 10Admin Note: VIS given 11Admin Note: VIS given 12Result Comment: wrong patient 13Admin Note: Dr. Suarez Records 14Admin Note: [facility] Records 15Admin Note: [facility] Records #2 16Admin Note: [facility] Records #1 17Admin Note: [facility] Records Medications buPROPion 150 mg/24 hours (XL) oral tablet, extended release See Instructions, TAKE 1 TABLET BY MOUTH EVERY MORNING, # 30 tablet, 1 Refills, [id number], 30, TAKE 1 TABLET BY MOUTH EVERY MORNING, 180, cm, 07/11/21 14:47:00 EST, Height Start Date: 09/14/21 Status: Ordered buPROPion 300 mg/24 hours (XL) oral tablet, extended release See Instructions, TAKE 1 TABLET BY MOUTH EVERY DAY, # 30 tablet, 1 Refills, [id number], 180, cm, 07/11/21 14:47:00 EST, Height Start Date: 09/14/21 Status: Ordered busPIRone 5 mg oral tablet See Instructions, Take 1 tab po bid, # 60 tablet, Refills 1, Tot. Refills 1, Instructions Replace Required Details, Route to Pharmacy Electronically, [facility], 180, cm, 07/11/21 14:47:00 EST, Height Start Date: 09/14/21 Status: Ordered clindamycin 1% topical gel 1 application, Topically, 2 times a day, # 60 Gm, 0 Refills, Maintenance, 03/21/21 14:11:00 EDT, Gel, [facility]/pharmacy #[id number], Partial fill upon patient request if the prescription is for a schedule II opioid drug., 1 application Topically 2 times a day, 1... Start Date: 03/21/21 Status: Ordered clotrimazole 1% topical cream 1 application, Topically, 2 times a day, # 113 Gm, 1 Refills, Maintenance, 03/15/21 13:54:00 EDT, Cream, [facility]/pharmacy #[id number], Partial fill upon patient request if [...] 5 Refills, Maintenance, 03/27/21 10:44:00 EDT, Tablet, [facility], 1 tablet By Mouth Daily,x30 days,Instr:with food, 180, cm, 03/15/21 13:32:00 EDT, Height Start Date: 03/27/21 Stop Date: 09/23/21 Status: Ordered Nasacort Allergy 24HR 55 mcg/inh nasal spray See Instructions, 2 sprays Daily, # 1 each, 1 Refills, Maintenance, 09/25/16 12:12:25 Start Date: 1/31/17 Status: Ordered nystatin topical 670408 u/gm powder 1 application, Topically, 3 times a day, # 60 Gm, 1 Refills, Maintenance, 06/06/21 14:33:00 EDT, [id number] Partial fill upon patient request if the prescription is for a schedule IIopioid drug., 1 application Topically 3 times a day... Start Date: 06/06/21 Status: Ordered prazosin 1 mg oral capsule 3, capsule, By Mouth, Daily at bedtime, # 90 capsule, Refills 11, Tot. Refills 11, 08/09/21 11:17:00 EST, [id number] 180, cm, 07/11/21 14:47:00 EST, Height Start Date: 08/09/21 Status: Ordered Vistaril pamoate 25 mg oral capsule See Instructions, PRN as needed for anxiety, take 1-2 caps po bid prn for anxiety or insomnia. Max 4 caps/day, # 120 capsule, 1 Refills, Maintenance, 09/20/21 17:10:00 EST, [facility]/pharmacy #[id number], 180, cm, 07/11/21 14:47:00 EST, Height Start [...]
--- OUTSIDE RECORDS SUMMARY | 2023-01-16 23:43 | XMS_ITS | Continuity of Care Document ---
Author Name Unknown Organization [facility] Address [address] [place] [address]- Care Team Providers Care Metal Extrusion Supervisor Name Role Phone Salomon OLMEDO, Jet Primary Care Physician Encounter [facility] Date(s): 04/24/22 - 06/21/22 [facility] [address]- Attending Physician: Adama Gunn MD Admitting Physician: [...] Note: recv'd at PCP office in [place] 4Admin Note: afluria 5Admin Note: Flucelvax 6Admin Note: VIS Given 7Result Comment: [08/06/2017] verbal consent obtained, allergies reviewed. Has had flu shot in past with no issues. [facility] flu vaccine sheet given. 8Admin Note: #2 9Admin Note: [facility] Records 10Admin Note: VIS given 11Admin Note: VIS given 12Result Comment: wrong patient 13Admin Note: Dr. Suarez Records 14Admin Note: [facility] Records 15Admin Note: [facility] Records #2 16Admin Note: [facility] Records #1 17Admin Note: [facility] Records Medications buPROPion 150 mg/24 hours (XL) oral tablet, extended release See Instructions, TAKE 1 TABLET BY MOUTH EVERY MORNING, # 30 tablet, 2 Refills, 03/08/22 9:52:00 EDT, [facility], 30, TAKE 1 TABLET BY MOUTH EVERY MORNING, 180, cm, 01/23/22 14:19:00EDT, Height Start Date: 03/08/22 Status: Ordered buPROPion 300 mg/24 hours (XL) oral tablet, extended release See Instructions, TAKE 1 TABLET BY MOUTH EVERY DAY, # 30 tablet, 2 Refills, 03/08/22 9:52:00 EDT, [facility], 180, cm, 01/23/22 14:19:00 EDT, Height Start Date: 03/08/22 Status: Ordered busPIRone 5 mg oral tablet See Instructions, Take 1 tab qam po and 2 tabs qhs, # 180 tablet, Refills 2, Tot. Refills 2, 03/08/22 9:51:00 EDT, Instructions Replace Required Details, Route to Pharmacy Electronically, [facility], 180, cm, 01/23/22 14:19:00 [...] 5 Refills, Maintenance, 05/09/22 11:02:00 EDT, Tablet, [facility], 1 tablet By Mouth Daily,x30 days,Instr:with food, 180, cm, 01/23/22 14:19:00 EDT, Height Start Date: 05/09/22 Stop Date: 11/05/22 Status: Ordered Nasacort Allergy 24HR 55 mcg/inh nasal spray See Instructions, 2 sprays Daily, # 1 each, 1 Refills, Maintenance, 09/25/16 12:12:25 Start Date: 09/25/16 Status: Ordered nystatin topical 065527 u/gm powder 1 application, Topically, 3 times a day, # 60 Gm, 1 Refills, Maintenance, 06/06/21 14:33:00 EDT, Powder, [facility]/pharmacy #[id number], Partial fill upon patient request if the prescription is for a schedule IIopioid drug., 1 application Topically 3 times a day... Start Date: 06/06/21 Status: Ordered prazosin 1 mg oral capsule See Instructions, TAKE 4 CAPSULES BY MOUTH ONCE DAILY AT BEDTIME, # 120 capsule, Refills 2, Tot. Refills 2, Instructions Replace Required Details, [facility], cm, 01/23/22 14:19:00 EDT, Height Start Date: 03/08/22 Status: Ordered Vistaril pamoate 25 mg oral capsule See Instructions, PRN as needed for anxiety, take 1-2 caps po bid prn for anxiety or insomnia. Max 4 caps/day, # 120 capsule, 1 Refills, Maintenance, 12/08/21 6:01:00 EDT, [facility], 180, cm, 07/11/21 14:47:00 EST, Height Start Date: 12/08/21 Status: Ordered zolpidem 10 mg oral tablet See Instructions, TAKE ONE TABLET BY MOUTH EVERY NIGHT AT BEDTIME NEEDED FOR SLEEP, # 30 tablet,2 Refills, Maintenance, 03/08/22 9:53:00 EDT, [facility], 180, cm, 01/23/22 14:19:00 EDT, Height Start Date: 03/08/22 Status: Ordered zolpidem 10 mg oral tablet See Instructions, TAKE ONE TABLET BY MOUTH EVERY NIGHT AT BEDTIME NEEDED FOR SLEEP, # 30 tablet,1 Refills, Maintenance, 10/26/21 17:15:00 EST, [facility], 180, cm, 07/11/21 14:47:00 EST, Height Start Date: 10/26/21 Status: Ordered zolpidem 10 mg oral tablet See Instructions, TAKE ONE TABLET BY MOUTH EVERY NIGHT AT BEDTIME NEEDED FOR SLEEP, # 30 tablet,1 Refills, Maintenance, 12/08/21 6:04:00 EDT, [facility], 180, cm, 07/11/21 14:47:00 EST, Height Start Date: 12/08/21 Status: Ordered ZyrTEC 10 mg oral tablet 1 tablet = 10 mg, By Mouth, Daily, # 30 tablet, 11 Refills, Maintenance, 01/23/22 14:27:00 EDT, Tablet, [facility]/pharmacy #[id number], 180, cm, 01/23/22 14:19:00 EDT, [...] Personnel Name: Jet Latif MD Address: [facility] [address]
[2023-01-17 00:11] LABS: Appearance Urine Clear; Color Urine Yellow; Glucose Urine UA Negative (Negative); Leukocyte Esterase Urine Negative (Negative); Nitrite Urine Negative (Negative); PH 7.5 (5.0-9.0); Specific Gravity - Urine 1.015 (1.005-1.025); Urine Blood Negative (Negative); Urine Ketones Negative (Negative); Urine Protein Negative (Neg-Trace)
[2023-01-17 00:12] LABS: Bacteria Urine None Seen (None Seen); Hyaline Casts Urine 0-2 /LPF (0-2); RBC Urine 0-2 /HPF (0-2); Squamous Epithelial Cell Urine 0-2 /HPF (0-2); WBC Urine 0-5 /HPF (0-5)
[2023-01-17 04:37] VITALS: BP 158/89; PULSE 67; RESP 20; TEMP 36.5; O2SAT 97
--- NOTE | 2023-01-17 04:38 | PC.NURSE ---
pt brought into bed 8 from waiting room. waiting to be seen by ED provider. vital signs updated
--- NOTE | 2023-01-17 06:04 | ED.ABDPAIN ---
HPI - Abdominal Pain General Chief Complaint: Abdominal Pain Stated Complaint: sharp pain in belly button,started yesterday.NoInj Time Seen by Provider: 01/17/23 05:51 Source: patient Mode of arrival: ambulatory Limitations: no limitations History of Present Illness HPI narrative: Patient comes to the emergency room complaining of epigastric, periumbilical and bilateral lower quadrant pain for 1 day. Patient states that he has history of IBS and diverticulitis. Patient concerned that he may have diverticulitis again. Patient denies fever chills, no flank pain, dysuria Related Data Previous Rx's Medication Instructions Recorded diazepam 5 mg tablet (Valium) 5 mg PO TID PRN muscle spasm #14 08/12/20 tabs ibuprofen 600 mg tablet 600 mg PO Q6H PRN pain #20 tabs 08/12/20 oxycodone 5 mg capsule 5 mg PO Q6H PRN pain #20 caps 08/12/20 fluconazole 150 mg tablet 150 mg PO QWEEK 4 weeks #4 tabs 04/02/21 nystatin 100,000 unit/gram topical 1 appl topical DAILY to bilateral 04/02/21 powder groin 7 days #15 grams prednisone 20 mg tablet 40 mg PO DAILY 7 days #14 tabs 04/02/21 benzonatate 200 mg capsule 200 mg PO TID PRN cough #30 caps 03/25/22 doxycycline hyclate 100 mg tablet 100 mg PO BID #20 tabs 03/25/22 hyoscyamine sulfate 0.125 mg tablet 0.125 mg PO QID #14 tabs 01/17/23 Allergies Allergy/AdvReac Type Severity Reaction Status Date / Time efavirenz [From ATRIPLA] Allergy Unknown HIVES Verified 03/25/22 22:25 emtricitabine [From ATRIPLA] Allergy Unknown HIVES Verified 03/25/22 22:25 Penicillins Allergy Unknown HIVES Verified 03/25/22 22:25 tenofovir [From ATRIPLA] Allergy Unknown HIVES Verified 03/25/22 22:25 gadobutrol [From GADAVIST] AdvReac Mild STOMACH Verified 03/25/22 22:25 UPSET penicillin Allergy Unknown SOB, RASH Uncoded 07/28/18 00:00 Review of Systems Review of Systems Constitutional : No Weight loss, No Fever, No Chills, No Night Sweats, No Fatigue, No Malaise ENT/Mouth : No Hearing loss, No Ear Pain, No Nasal Congestion, No Sinus Pain, No Hoarseness, No sore throat, No Rhinorrhea, No Swallowing Difficulty Eyes: No Eye Pain, No Swelling, No Redness, No Foreign Body, No Discharge, No Vision Changes Cardiovascular : No Chest Pain, No SOB, No Dyspnea on Exertion, No Orthopnea, No Edema, No Palpitations Respiratory : No Cough, No Sputum, No Wheezing, No Smoke Exposure, No Dyspnea Gastrointestinal : Complaining of nausea and vomiting for 1 day, No Diarrhea, No Constipation, complaining of epigastric pain, no melena hematochezia Genitourinary : no irregular bleeding, No Dysuria, No Urinary Frequency, No Hematuria, No Urinary Incontinence, No Urgency, No Flank Pain, No Urinary Flow Changes, No Hesitancy Musculoskeletal : No joint pain, No Myalgias, No Joint Swelling Skin : No Skin Lesions, No rash Neuro : No Weakness, No Numbness, No Paresthesias, No Loss of Consciousness, No Dizziness, No Headache Psych : No Anxiety/Panic, No Depression, No SI/HI/AH/VH, No Social Issues, Heme/Lymph: No Bruising, No Bleeding,No Lymphadenopathy Endocrine : No Polyuria, No Polydipsia, No Temperature Intolerance PMFSH Past Medical History Medical History (Updated 01/17/23 @ 07:45 by Marcia Bianchi MD) Diverticulitis HIV positive IBS (irritable bowel syndrome) Social History Social History Alcohol intake: never Advance Directives: No Advance Directives Information Provided: No Physical Exam ED Vital Signs: Vital Signs - 24 hr 01/16/23 22:24 01/17/23 04:37 Temperature 98 F 97.7 F Pulse Rate 78 67 Respiratory Rate 18 20 Blood Pressure 152/91 H 158/89 H Pulse Oximetry 98 97 Oxygen Delivery Method Room Air Room Air BMI result Body Mass Index 24.4 Const Other: Appearance: Alert. Oriented X3. No acute distress. Eyes: Pupils equal, round and reactive to light. ENT: Pharynx normal. Neck: Normal inspection. Neck supple. No lymph nodes noted. No crepitus CVS: Normal heart rate and rhythm. Pulses normal. Normal S1 and S2 Respiratory: No respiratory distress. Breath sounds normal. No Wheezing. No rales Abdomen: Soft seems to have diffuse abdominal pain but much worse in bilateral lower quadrants and periumbilical, No rigidity. No distention. Skin: Skin warm and dry. Normal skin color. Normal skin turgor. Extremities: No lower extremity edema. No Lacerations. No Rash Neuro: Oriented X 3. No motor deficit. No sensory deficit. Moving all extremities. No slurred speech. CN 2 through 12 grossly intact Psych: calm, cooperative, very anxious Medical Decision Making Medical Decision Making [facility] Narrative: -patient receiving IV fluids, Zofran and Toradol -patient's CT scan of the abdomen does not show any significant acute abnormality. -overall, patient is feeling better. Discussed the CT scan results with the patient. Lab Data [facility] Lab Attestation statement: I reviewed the patient's lab results. 01/16/23 22:39 01/16/23 22:39 Labs: Lab Results 01/16/23 01/16/23 01/16/23 Range/Units 22:39 22:39 23:33 WBC 9.8 (4.8-10.8) X10*3/uL RBC 5.34 (4.60-5.80) X10*6/uL Hgb 15.1 (14.0-18.0) g/dl Hct 45.7 (42.0-52.0) % MCV 85.6 (80.0-98.0) fL MCH 28.3 (27.0-33.0) pg MCHC 33.0 (31.0-36.0) g/dl RDW 13.1 (11.0-16.0) % Plt Count 241 (160-400) X10*3/uL MPV 9.7 (9.4-12.4) fL Immature Gran % (Auto) 0.5 H (0.0-0.4) % Neut % (Auto) 60.9 (45-73) % Lymph % (Auto) 26.6 (20-40) % [place] % (Auto) 6.6 (2-11) % Eos % (Auto) 4.7 H (0-4) % Baso % (Auto) 0.7 (0-2) % Lymph # (Auto) 2.6 (1.2-4.9) X10*3/uL [place] # (Auto) 0.6 (0.1-1.2) X10*3/uL Eos # (Auto) 0.5 H (0.0-0.4) X10*3/uL Baso # (Auto) 0.1 (0.0-0.2) X10*3/uL Abs Immat Gran (auto) 0.05 H (0.00-0.03) X10*3/uL Absolute Neuts (auto) 5.9 (2.0-8.3) x10*3/uL Absolute Nucleated RBC 0.000 (0.0-0.012) X10*3/uL Nucleated RBC % (auto) 0.0 (0.0-0.2) /100WBC Sodium 141 (135-145) mmol/L Potassium 4.3 (3.3-5.1) mmol/L Chloride 106 (96-108) mmol/L Carbon Dioxide 25 (22-29) mmol/L Anion Gap 14 (12-20) BUN 15 (9-16) mg/dL Creatinine 1.12 (0.5-1.4) mg/dL Estim Creat Clear Calc 97.1 Estimated GFR > 60 Random Glucose 81 (60-115) mg/dL Calcium 9.1 (8.4-10.2) mg/dL Total Bilirubin 0.4 (0.0-1.0) mg/dL Direct Bilirubin 0.1 (0.0-0.5) mg/dL AST 27 (5-37) U/L ALT 34 (0-40) U/L Alkaline Phosphatase 87 (39-117) U/L Total Protein 7.4 (6.5-8.0) g/dL Albumin 4.2 (3.5-5.0) g/dL Lipase 14 (8-78) U/L Urine Color Yellow Urine Appearance Clear Urine pH 7.5 (5.0-9.0) Ur Specific [place] 1.015 (1.005-1.025) Urine Protein Negative (Neg-Trace) mg/dL Urine Glucose (UA) Negative (Negative) mg/dL Urine Ketones Negative (Negative) mg/dL Urine Blood Negative (Negative) Urine Nitrite Negative (Negative) Ur Leukocyte Esterase Negative (Negative) Urine RBC 0-2 (0-2) /HPF Urine WBC 0-5 (0-5) /HPF Ur Squamous Epith Cells 0-2 (0-2) /HPF Urine Bacteria None Seen (None Seen) Hyaline Casts 0-2 (0-2) /LPF Radiology Impression Discussion of test interpretation with radiology: I have reviewed the radiologist's reading. Radiologist Impression: FINDINGS: LUNG BASES: The visualized lung bases are unremarkable.? LIVER, GALLBLADDER, AND BILIARY TREE: Liver normal in size, contour and morphology. Diffuse hepatic steatosis suspected. No focal liver lesions. The gallbladder is unremarkable with no evidence of radiopaque gallstones, gallbladder wall thickening, or obvious pericholecystic inflammatory changes.? PANCREAS: Unremarkable.? SPLEEN: Unremarkable.? ADRENAL GLANDS: Unremarkable.? KIDNEYS AND URETERS: The kidneys are normal in size, shape, and attenuation. No hydronephrosis, hydroureter, or calculi seen. No perinephric stranding. ? BLADDER: Unremarkable.? GASTROINTESTINAL TRACT: The small and large bowel are unremarkable. The appendix is unremarkable.? ABDOMINAL WALL: No significant hernia is appreciated.? LYMPH NODES: Normal. VASCULAR: Unremarkable. PELVIC VISCERA: Unremarkable.? OSSEOUS STRUCTURES: Unremarkable.? CT/CT abdomen pelvis w IV con IMPRESSION: *? No acute findings within the abdomen or pelvis to explain the patient's symptomatology. *? Hepatic steatosis suspected. ? Medications Administered Discontinued Medications Generic Name Dose Route Start Last Admin Trade Name Freq PRN Reason Stop Dose Admin Sodium Chloride 1,000 mls @ 999 mls/hr 01/17/23 05:56 01/17/23 06:13 Ns IVCONT 01/17/23 06:56 999 mls/hr .Q1H1M ONE Administration Iohexol 85 ml 01/17/23 06:09 01/17/23 06:10 Iohexol 350 Mg/Ml 100 Ml Infus..Btl IV 01/17/23 06:10 85 ml ONCE ONE Administration Ketorolac Tromethamine 30 mg 01/17/23 05:56 01/17/23 06:13 Ketorolac Tromethamine 30 Mg/Ml Vial IVPUSH 01/17/23 05:57 30 mg ONCE ONE Administration Ondansetron HCl 4 mg 01/17/23 05:56 01/17/23 06:13 Ondansetron Hcl 4 Mg/2 Ml Vial IVPUSH 01/17/23 05:57 4 mg ONCE ONE Administration Discharge Plan Discharge Clinical Impression: Abdominal pain Patient Disposition: Home, Self-Care Instructions: Abdominal Pain (ED) Additional Instructions: Please follow-up with your primary care physician tomorrow. If you have any worsening or new symptoms, please return to the emergency room or call 911 Prescriptions: New hyoscyamine sulfate 0.125 mg tablet 0.125 mg PO QID Qty: 14 0RF No Action prednisone 20 mg tablet 40 mg PO DAILY 7 Days Qty: 14 0RF fluconazole 150 mg tablet 150 mg PO QWEEK 28 Days Qty: 4 0RF nystatin 100,000 unit/gram powder 1 appl topical DAILY 7 Days Qty: 15 0RF oxycodone 5 mg capsule 5 mg PO Q6H PRN (Reason: pain) Qty: 20 0RF Rx Instructions: Narcotic may cause drowsiness, no driving for 6 hours after taking diazepam [Valium] 5 mg tablet 5 mg PO TID PRN (Reason: muscle spasm) Qty: 14 0RF Rx Instructions: This medication may cause drowsiness, no driving for 8 hours after taking ibuprofen 600 mg tablet 600 mg PO Q6H PRN (Reason: pain) Qty: 20 0RF benzonatate 200 mg capsule 200 mg PO TID PRN (Reason: cough) Qty: 30 0RF doxycycline hyclate 100 mg tablet 100 mg PO BID Qty: 20 0RF
[2023-01-17] MEDS: iohexoL 350 MG/ML 100 ML INFUS..BTL 85 ML IV (06:10)
[2023-01-17] MEDS: Ketorolac Tromethamine 30 MG/ML VIAL IVPUSH (06:13)
[2023-01-17] MEDS: 0.9 % Sodium Chloride 1,000 ML 999 ML IVCONT (06:13)
[2023-01-17] MEDS: ondansetron HCL 4 MG/2 ML VIAL IVPUSH (06:13)
--- NOTE | 2023-01-17 06:20 | PC.NURSE ---
iv line placed, pt going for ct scan of abdomen. medicated per mar for 03/04 pain, varies in intensity. pt describes it as a sharp, stabbing pain in middle of abdomen. denies vomiting
== END 2023-01-17 08:05 | disposition home or self-care (01) ==
PROVIDERS: Emergency Provider Emergency Medicine; PCP Internal Medicine
DX: R10.30 Lower abdominal pain, unspecified (principal)
CPT/HCPCS: 36415; 74177; 80048; 80076; 81001; 83690; 85025; 96374; 96375; 99284; J1885; J2405; Q9967

== ENCOUNTER 2023-12-17 14:34 | Outpatient (AMB) | payer OTHER, SELFPAY ==
[2023-12-17 15:02] VITALS: BP 120/80; PULSE 61; TEMP 36.7; O2SAT 97; BMI 24.5
--- NOTE | 2023-12-17 15:02 | AM.OFFWIN_ITS ---
Intake Vital Signs 12/17/23 15:02 Height 6 ft Weight 181 lb BMI 24.5 BP 120/80 Blood Pressure Location Lt brachial Position Sitting Pulse 61 Pulse Source Pulse Oximeter Temp 98.1 F Temp Source Oral Pulse Oximetry (%) 97 Oxygen Delivery Method Room Air Intake Visit Reasons: [employer]O [employer] STD testing Intake Note: Pt is here today for STD testing Allergies efavirenz [From ATRIPLA] Allergy (Unknown, Verified 12/17/23 15:24) HIVES emtricitabine [From ATRIPLA] Allergy (Unknown, Verified 12/17/23 15:24) HIVES tenofovir [From ATRIPLA] Allergy (Unknown, Verified 12/17/23 15:24) HIVES gadobutrol [From GADAVIST] Adverse Reaction (Mild, Verified 12/17/23 15:24) STOMACH UPSET penicillin Allergy (Unknown, Uncoded 12/17/23 15:24) SOB, RASH Medication List - Last Reconciled 12/17/23 by LYNNE Orozco cetirizine 10 mg PO DAILY [id number] alafen [phone] mg (Genvoya) 1 tab PO DAILY zolpidem 5 mg PO BEDTIME PRN HPI HPI Comments History of Present Illness Details Patient is a 38-year-old male in today for a sick visit. Patient has a past medical history significant for HIV, insomnia. Patient is currently taking Genvoya. Patient states he had recent sexual encounter with male who informed the patient this morning that he recently tested positive for chlamydia. Patient states that he has developed symptoms of slight burning with urination. Denies erythema or discharge. Will order labs. Will obtain a urine sample in office today. [facility] Medical History (Updated 12/17/23 @ 15:44 by LYNNE Orozco) Diverticulitis IBS (irritable bowel syndrome) HIV positive Social History Alcohol intake: never Review of Systems Const All systems reviewed & are unremarkable except as noted in HPI and below Physical Exam Vital Signs: Last Vital Signs Temp 98.1 F 12/17/23 15:02 Pulse 61 12/17/23 15:02 BP 120/80 12/17/23 15:02 Pulse Ox 97 12/17/23 15:02 Oxygen Delivery Method Room Air 12/17/23 15:02 BMI result Body Mass Index 24.5 Const Other: Appearance: Alert.? Oriented X3.? No acute distress.? Head: Normocephalic, atraumatic, no step-offs or deformities Eyes: Pupils equal, round and reactive to light.? CVS: Normal heart rate and rhythm.? Pulses normal.? Respiratory: No respiratory distress.? Breath sounds normal.? : Pt declined. Neuro: Oriented X 3.? No motor deficit.? No sensory deficit. CN 2-12 intact Results AMB Urinalysis, Automated UA Leukoctes 0 [place]/uL Last Edit by Lucille Lockhart CMA on 12/17/23 15:32 UA Nitrite Negative Last Edit by Lucille Lockhart CMA on 12/17/23 15:32 UA Urobilinogen 0.2 mg/dL Last Edit by Lucille Lockhart CMA on 12/17/23 15:32 UA Protein 0 mg/dL Last Edit by Lucille Lockhart CMA on 12/17/23 15:32 UA pH 6.0 Last Edit by Lucille Lockhart, CRISTA on 12/17/23 15:32 UA Blood 0 Manjinder/uL Last Edit by Lucille Lockhart CMA on 12/17/23 15:32 UA Specific [place] 1.030 Last Edit by Lucille Lockhart CMA on 12/17/23 15:32 UA Ketone Last Edit by Lucille Lockhart CMA on 12/17/23 15:32 UA Bilirubin 0 mg/dL Last Edit by Lucille Lockhart CMA on 12/17/23 15:32 UA Glucose 0 mg/dL Last Edit by Lucille Lockhart CMA on 12/17/23 15:32 Assessment & Plan Assessment & Plan (1) C. trachomatis infection: Comment: Will obtain labs. Patient will be given doxycycline to be taken as directed Code(s): A56.8 - Sexually transmitted chlamydial infection of other sites Plan: Take your medications as prescribed. If you were prescribed antibiotics today, it is important that you take your medication to their entirety, do not skip any doses, do not finish them early. Follow-up with your primary care provider this week. Return to the emergency department with new or worsening symptoms. Such as fevers, chills, chest pain, shortness of breath, nausea, vomiting, dizziness, headache, vision changes, lethargy In case of emergency call 911 Plan Follow-up with PCP Orders: Orders HBV Genotype Today Z20.2 - Contact with and (suspected) exposure to infections with a predominantly sexual mode of transmission CT NG by PCR Today Z20.2 - Contact with and (suspected) exposure to infections with a predominantly sexual mode of transmission Syphilis Screen Today Z20.2 - Contact with and (suspected) exposure to infections with a predominantly sexual mode of transmission AMB Urinalysis Automated Today Z13.9 - Encounter for screening, unspecified Medications: New doxycycline hyclate 100 mg PO BID 14 caps 0RF Discontinued nystatin Discontinued Reason: Patient no longer taking 1 appl topical DAILY 7 days 15 grams 0RF to bilateral groin prednisone Discontinued Reason: Patient no longer taking 40 mg (2 x 20 mg) PO DAILY 7 days 14 tabs 0RF fluconazole Discontinued Reason: Patient Completed Course 150 mg PO QWEEK 4 weeks 4 tabs 0RF benzonatate Discontinued Reason: Patient Completed Course 200 mg PO TID PRN 30 caps 0RF cough doxycycline hyclate Discontinued Reason: Patient Completed Course 100 mg PO BID 20 tabs 0RF hyoscyamine sulfate Discontinued Reason: Patient no longer taking 0.125 mg PO QID 14 tabs 0RF Coding Level of Care Code Est Pt Level 3 (83914) Diagnoses C. trachomatis infection A56.8 Time Spent (min) 21
== END 2023-12-17 16:13 | disposition home or self-care (01) ==
PROVIDERS: PCP Internal Medicine; Visit Provider Nurse Practitioner Primary Care
DX: R30.9 Painful micturition, unspecified (principal); Z20.2 Contact with and (suspected) exposure to infections with a predominantly sexual mode of transmission
CPT/HCPCS: 81003; 99213

== ENCOUNTER 2023-12-17 15:29 | Outpatient (REF) | payer OTHER, SELFPAY ==
[2023-12-17 18:33] LABS: CT PCR NOT DETECTED (Not Detect.); NG PCR NOT DETECTED (Not Detect.)
== END 2023-12-17 15:30 | disposition home or self-care (01) ==
LOC: HO.LAB 15:29
PROVIDERS: Visit Provider Nurse Practitioner Primary Care
DX: Z20.2 Contact with and (suspected) exposure to infections with a predominantly sexual mode of transmission (principal)
CPT/HCPCS: 0353U